=== PATIENT | male | born 1965 | race Caucasian/White ===

== ENCOUNTER → 2017-01-05 | Outpatient (CLI) | payer MEDICARE ==
[2016-06-06 11:02] VITALS: BP 133/89
[~2017-01-05] MED LIST: ALBU6.7H IH; DULO60CA6 PO; LORA-434 PO; LORA0.5T PO; LOSA100T6 PO; QUET200T4 PO; SULF1TAB24 PO; TRAZ150T49 PO
--- NOTE | 2017-01-05 10:38 | RAD ---
Clinical indications: Syncopal episodes for 3 weeks.. Technique: Noncontrast axial cross sectional scanning of the head was performed. PQRS Compliance Statement: One or more of the following individualized dose reduction techniques were utilized for this examination: 1. Automated exposure control 2. Adjustment of the mA and/or kV according to patient size 3. Use of iterative reconstruction technique Findings: No acute intracranial hemorrhage or midline shift or mass-effect or hydrocephalus or extra-axial fluid collection is seen. No focal hypodense area or sulci effacement is seen to indicate an acute infarct or edema radiographically. No skull fracture or pneumocephalus is seen. No opacification of the mastoid sinuses or the paranasal sinuses is seen. The maxillary sinuses are not seen in this study. Impression: No acute intracranial abnormality is seen.
== END | disposition home or self-care (01) ==
LOC: CT 09:30
PROVIDERS: ATTEND General Practice
DX: R55 Syncope and collapse (principal)
CPT/HCPCS: 70450

== ENCOUNTER → 2017-05-03 | Outpatient (CLI) | payer MEDICARE ==
[2016-06-06 11:02] VITALS: BP 133/89
--- NOTE | 2017-05-03 17:22 | RAD ---
INDICATION: LEFT KNEE PAIN X 2 WKS COMPARISON: 06/13/2013 IMPRESSION: Left knee: 3 views obtained without definite acute fracture or dislocation. There is a small amount of swelling seen in the prepatellar region. Could be from soft tissue swelling but bursitis also in differential.
== END | disposition home or self-care (01) ==
LOC: DXRADRC 12:01
PROVIDERS: ATTEND General Practice
DX: M25.562 Pain in left knee (principal); M25.462 Effusion, left knee
CPT/HCPCS: 73562

== ENCOUNTER → 2018-02-05 | Outpatient (CLI) | payer MEDICARE ==
[2016-06-06 11:02] VITALS: BP 133/89
[~2018-02-05] MED LIST changes: +LORA-254 PO; -LORA-434 PO
--- NOTE | 2018-02-05 10:02 | RAD ---
Cervical Spine complete Clinical History: 1 month of neck pain Technique: AP, lateral, bilateral oblique, swimmers projection,odontoid and open-mouth views and were obtained for a total of 7 views. Findings: There is straightening of the normal cervical lordosis. There is no loss of vertebral body stature. There is no prevertebral soft tissue swelling. The vertebral bodies are well aligned. There is symmetry of the open-mouth view. The dens appears normal. There is degenerative changes with loss of intervertebral disc height and marginal spurring of endplates at C4-C7. This also results in moderate narrowing of the neuroforamen on the left at C5-C6. Impression: Straightening of the normal cervical lordosis could be secondary to muscle spasm. There is degenerative changes of the C-spine. There are otherwise no acute findings. Clinical correlation suggested. End Impression Electronically signed by: Deejay Gonzalez III, MD (02/05/2018 9:59 AM) [facility]
== END | disposition home or self-care (01) ==
LOC: RAD 09:06
PROVIDERS: ATTEND Physician Assistant
DX: M48.02 Spinal stenosis, cervical region (principal); M47.892 Other spondylosis, cervical region; I10 Essential (primary) hypertension; F41.9 Anxiety disorder, unspecified; E03.9 Hypothyroidism, unspecified; Z85.46 Personal history of malignant neoplasm of prostate
CPT/HCPCS: 72050

== ENCOUNTER → 2018-04-26 | Outpatient (CLI) | payer MEDICARE ==
[2016-06-06 11:02] VITALS: BP 133/89
[~2018-04-26] MED LIST changes: -LOSA100T6 PO; +LOSA100T7 PO
== END | disposition home or self-care (01) ==
LOC: SURG 13:33
PROVIDERS: ATTEND Anesthesiology
DX: M47.812 Spondylosis without myelopathy or radiculopathy, cervical region (principal); F17.200 Nicotine dependence, unspecified, uncomplicated
CPT/HCPCS: 99204

== ENCOUNTER → 2019-03-28 | Outpatient (CLI) | payer MEDICARE ==
[2016-06-06 11:02] VITALS: BP 133/89
[~2019-03-28] MED LIST changes: +ALBU2.5V8 IH; -ALBU6.7H IH; +HYDR30CR61 TP; +LOSA100T14 PO; -LOSA100T7 PO
--- NOTE | 2019-03-28 12:51 | RAD ---
Carotid doppler ultrasound History: Hypertension, smoker, visual impairment Multiple grayscale, color, and duplex spectral analysis waveform sonographic images were acquired of the carotid, subclavian, and vertebral arteries. Comparison: None Findings: RIGHT: PSV cm/sec EDV cm/sec Common carotid artery 88 30 Maximal internal carotid artery 91 38 External carotid artery 108 Vertebral artery 34 ICA/CCA ratio 1.0 LEFT: PSV cm/sec EDV cm/sec Common carotid artery 90 27 Maximum internal carotid artery 99 45 External carotid artery 92 Vertebral artery 40 ICA/CCA ratio 1.1 Velocities used to determine stenosis are known to correlate with NASCET angiographic criteria. There is antegrade flow in the bilateral vertebral arteries. There is minimal plaque bilaterally, no significant stenosis demonstrated. Incidental note is made of right neck lymph node about 2.2 x 1 x 0.9 cm, not considered significantly enlarged based on short axis dimension. Impression: 1. There is no evidence of a hemodynamically significant stenosis, minimal plaque present. Electronically signed by: Conor Peng MD (03/28/2019 12:48 PM) [facility]
== END | disposition home or self-care (01) ==
LOC: US 07:34
PROVIDERS: ATTEND Physician Assistant
DX: I65.23 Occlusion and stenosis of bilateral carotid arteries (principal); I10 Essential (primary) hypertension; H53.9 Unspecified visual disturbance; F17.200 Nicotine dependence, unspecified, uncomplicated
CPT/HCPCS: 93880

== ENCOUNTER 2019-04-10 09:05 | Emergency (ER) | payer MEDICARE ==
[~2019-04-10] VITALS: Ht 165.1 cm; Wt 86.2 kg
[2019-04-10 09:10] VITALS: BP 125/86
--- NOTE | 2019-04-10 09:24 | PHYS DOC ---
Past History Past Medical History: Anxiety, Depression, High Cholesterol, Hypertension, Other Past Surgical History: Other Smoking: Cigarettes Alcohol Use: None Drug Use: None Adult General Chief Complaint Chief Complaint: SHOULDER INJURY HPI HPI Patient is a 53-year-old male presents with right shoulder and arm pain. This has been present for a while, worse this morning on waking up. Denies any difficulty breathing. Increased pain with abduction of the arm. No increased use. No specific position of comfort. No increased pain with flexion or extension of the elbow. No home treatment has been attempted. No recent trauma, stasis, or known hypercoagulable state. No swelling. No redness. Reports the pain is severe.[] Review of Systems Review of Systems Constitutional: Denies fever or chills [] Eyes: Denies change in visual acuity, redness, or eye pain [] HENT: Denies nasal congestion or sore throat [] Respiratory: Denies cough or shortness of breath [] Cardiovascular: No chest pain, palpitations, or worsening of the shoulder discomfort/arm discomfort with exertion.[] GI: Denies abdominal pain, nausea, vomiting, bloody stools or diarrhea [] : Denies dysuria or hematuria [] Musculoskeletal: Denies back pain, see history of present illness[] Integument: Denies rash or skin lesions [] Neurologic: Denies headache, focal weakness or sensory changes [] Endocrine: Denies polyuria or polydipsia [] All other systems were reviewed and found to be within normal limits, except as documented in this note. Allergies Allergies Allergies Coded Allergies Type Severity Reaction Last Updated Verified risperidone Allergy Severe 06/12/15 No Physical Exam Physical Exam Constitutional: Well developed, well nourished, no acute distress, non-toxic appearance. [] HENT: Normocephalic, atraumatic, bilateral external ears normal, oropharynx moist, no oral exudates, nose normal. [] Eyes: PERRLA, EOMI, conjunctiva normal, no discharge. [] Neck: Normal range of motion, no tenderness, supple, no stridor. [] Cardiovascular:Heart rate regular rhythm, no murmur [] Lungs & Thorax: Bilateral breath sounds clear to auscultation [] Abdomen: Bowel sounds normal, soft, no tenderness, no masses, no pulsatile masses. [] Skin: Warm, dry, no erythema, no rash. [] Back: No tenderness, no CVA tenderness. [] Extremities: Right shoulder and arm: Diffuse tenderness, mostly in the bicep and the anterior and middle portion of the deltoids. Full active range of motion of the shoulder and elbow. Patient is distally neurovascularly intact. No increased pain with axial loading. Strength is 5 out of 5. No clavicular tenderness. No specific AC joint tenderness. A joint below was evaluated and was normal. The other 3 extremities show: No tenderness, no cyanosis, no clubbing, ROM intact, no edema. [] Neurologic: Alert and oriented X 3, normal motor function, normal sensory function, no focal deficits noted. [] Psychologic: Affect normal, judgement normal, mood normal. [] EKG EKG [] Radiology/Procedures Radiology/Procedures PROCEDURE: HUMERUS RIGHT Examination: HUMERUS RIGHT, SHOULDER 2+V RIGHT History: Pain Comparison/Correlation: None Findings: Total of 3 images of the right shoulder were obtained. 2 images of the right humerus were obtained. Acromioclavicular joint has mild age consistent degenerative change. Glenohumeral joint is unremarkable. Bony mineralization is adequate. No acute fracture or bone destruction. Soft tissues are unremarkable. Visualized right lung field is unremarkable. Impression: No suspicious process.[] Course & Med Decision Making Course & Med Decision Making Pertinent Labs and Imaging studies reviewed. (See chart for details) ED course: Patient arrived, was placed in bed, and tolerated exam well. Was transported to and from radiology with any complications. He was given a parenteral dose of NSAIDs with improvement in his discomfort. Findings and plan were discussed with the patient who voiced understanding. He was discharged in improved condition with all questions answered. Medical decision making: There is no fracture, dislocation, bony lesion, nor evidence of thrombus. This does not appear to be an acute coronary syndrome.[] Dragon Disclaimer Dragon Disclaimer This electronic medical record was generated, in whole or in part, using a voice recognition dictation system. Departure Departure: Impression: Primary Impression: Upper extremity pain Disposition: 01 HOME, SELF-CARE Condition: IMPROVED Referrals: ESTEPHANIA ESPARZA (PCP) Follow-up in 2 days Patient Instructions: Chronic Pain Additional Instructions: All up with your regular doctor in 2 days. Take the medication as prescribed. Return to the ER if worsening pain, difficulty breathing, or any other concerns. Scripts Meloxicam (MELOXICAM) 7.5 Mg Tablet 7.5 MG PO DAILY for PAIN, #20 TAB Prov: JOSE M MARAVILLA DO 04/10/19 Problem Qualifiers Primary Impression: Upper extremity pain Laterality: right Qualified Codes: M79.601 - Pain in right arm JOSE M MARAVILLA DO Apr 10, 2019 09:24
[2019-04-10] MEDS ORDERED: KETOROLAC 30 MG/ML VIAL. IM ONE (09:45)
--- NOTE | 2019-04-10 09:52 | RAD ---
Examination: HUMERUS RIGHT, SHOULDER 2+V RIGHT History: Pain Comparison/Correlation: None Findings: Total of 3 images of the right shoulder were obtained. 2 images of the right humerus were obtained. Acromioclavicular joint has mild age consistent degenerative change. Glenohumeral joint is unremarkable. Bony mineralization is adequate. No acute fracture or bone destruction. Soft tissues are unremarkable. Visualized right lung field is unremarkable. Impression: No suspicious process. Electronically signed by: Terry Torres MD (04/10/2019 9:49 AM) [facility]
--- NOTE | 2019-04-10 09:52 | RAD ---
Examination: HUMERUS RIGHT, SHOULDER 2+V RIGHT History: Pain Comparison/Correlation: None Findings: Total of 3 images of the right shoulder were obtained. 2 images of the right humerus were obtained. Acromioclavicular joint has mild age consistent degenerative change. Glenohumeral joint is unremarkable. Bony mineralization is adequate. No acute fracture or bone destruction. Soft tissues are unremarkable. Visualized right lung field is unremarkable. Impression: No suspicious process. Electronically signed by: Terry Torres MD (04/10/2019 9:49 AM) [facility]
[2019-04-10] MEDS ORDERED: MELO7.5T29 PO (10:06)
== END 2019-04-10 10:11 | disposition home or self-care (01) ==
LOC: ER 09:05
DX: M79.601 Pain in right arm (principal); M25.511 Pain in right shoulder; E78.00 Pure hypercholesterolemia, unspecified; I10 Essential (primary) hypertension; F17.210 Nicotine dependence, cigarettes, uncomplicated; Z88.8 Allergy status to other drugs, medicaments and biological substances
CPT/HCPCS: 73030; 73060; 96372; 99284; J1885

== ENCOUNTER 2019-06-15 06:05 | Emergency (ER) | payer MEDICARE ==
[~2019-06-15] VITALS: Ht 165.1 cm; Wt 87.5 kg
[~2019-06-15 06:05] MED LIST changes: +MELO7.5T29 PO
--- NOTE | 2019-06-15 06:27 | PHYS DOC ---
Past History Past Medical History: Anxiety, Depression, High Cholesterol, Hypertension, Other Past Surgical History: Other Additional Past Surgical Histo: knee surgeries Smoking: Cigarettes Alcohol Use: None Drug Use: None Adult General Chief Complaint Chief Complaint: ABDOMINAL PAIN HPI HPI Patient is a 53-year-old male who presents to the emergency department for evaluation. He states that for the past 2 days, he has had some generalized central abdominal pain, and some intermittent nausea, but no vomiting. He reports he has been eating and moving his bowels normally, as well as having no trouble or difficulty with urination. He denies any genital pain, or black or bloody stools. He has not had any chest pain shortness of breath, dizziness or lightheadedness. He describes the pain in the center of his abdomen as an achy pain. Alleviating or exacerbating factors to his symptoms, he declines a need for analgesic medication at this time. Review of Systems Review of Systems Constitutional: Denies fever or chills [] Eyes: Denies change in visual acuity, redness, or eye pain [] HENT: Denies nasal congestion or sore throat [] Respiratory: Denies cough or shortness of breath [] Cardiovascular:The patient denies any shortness of breath, chest pain, palpitations, or orthopnea[] GI: No additional information not addressed in HPI [] : Denies dysuria or hematuria [] Musculoskeletal: Denies back pain or joint pain [] Integument: Denies rash or skin lesions [] Neurologic: Denies headache, focal weakness or sensory changes [] Endocrine: Denies polyuria or polydipsia [] All other systems were reviewed and found to be within normal limits, except as documented in this note. Allergies Allergies Allergies Coded Allergies Type Severity Reaction Last Updated Verified risperidone Allergy Severe 06/12/15 No Physical Exam Physical Exam PHYSICAL EXAM: CONSTITUTIONAL: Well developed, well nourished HEAD: normocephalic, atraumatic EENT: PERRL, EOMI. Conjunctivae normal color, sclerae non-icteric; moist mucous membranes. NECK: Supple, non-tender; no meningismus. LUNGS: Lungs CTA, breathing even and unlabored. Normal air movement. HEART: Regular rate and rhythm, no murmur CHEST: No deformity; non-tender ABDOMEN: There is mild diffuse abdominal discomfort and tenderness of the central abdomen diffusely, without focal tenderness, rebound, or guarding, bowel sounds are present, the right upper quadrant is relatively nontender, Flores sign is absent, no masses or bruits. EXTREM: Normal ROM; no deformity, no calf tenderness. Normal pulses palpable in all extremities. There is no pedal edema. SKIN: No rash; no diaphoresis NEURO: Alert; normal speech and cognition; CN's grossly intact; strength grossly intact without focal deficit. BACK: No CVA TTP. Current Patient Data Lab Results Laboratory Tests Test 06/15/19 06:20 06/15/19 07:02 White Blood Count 4.8 x10^3/uL Red Blood Count 4.72 x10^6/uL Hemoglobin 14.3 g/dL Hematocrit 42.3 % Mean Corpuscular Volume 90 fL Mean Corpuscular Hemoglobin 30 pg Mean Corpuscular Hemoglobin Concent 34 g/dL Red Cell Distribution Width 13.2 % Platelet Count 199 x10^3/uL Neutrophils (%) (Auto) 62 % Lymphocytes (%) (Auto) 25 % Monocytes (%) (Auto) 11 % Eosinophils (%) (Auto) 1 % Basophils (%) (Auto) 2 % Neutrophils # (Auto) 3.0 x10^3uL Lymphocytes # (Auto) 1.2 x10^3/uL Monocytes # (Auto) 0.5 x10^3/uL Eosinophils # (Auto) 0.1 x10^3/uL Basophils # (Auto) 0.1 x10^3/uL Sodium Level 141 mmol/L Potassium Level 4.3 mmol/L Chloride Level 101 mmol/L Carbon Dioxide Level 28 mmol/L Anion Gap 12 Blood Urea Nitrogen 16 mg/dL Creatinine 1.3 mg/dL Estimated GFR (Cockcroft-Gault) 57.7 BUN/Creatinine Ratio 12 Glucose Level 95 mg/dL Calcium Level 9.0 mg/dL Total Bilirubin 0.6 mg/dL Aspartate Amino Transf (AST/SGOT) 38 U/L Alanine Aminotransferase (ALT/SGPT) 42 U/L Alkaline Phosphatase 114 U/L Troponin I Quantitative < 0.017 ng/mL Total Protein 7.3 g/dL Albumin 4.3 g/dL Albumin/Globulin Ratio 1.4 Lipase 233 U/L Urine Collection Type Unknown Urine Color Yellow Urine Clarity Clear Urine pH 6.5 Urine Specific [place] 1.010 Urine Protein Neg Urine Glucose (UA) Neg mg/dL Urine Ketones (Stick) Neg mg/dL Urine Blood Trace Urine Nitrite Neg Urine Bilirubin Neg Urine Urobilinogen Dipstick 0.2 mg/dL Urine Leukocyte Esterase Neg Urine RBC 3-5 /HPF Urine WBC Rare /HPF Urine Squamous Epithelial Cells Occ /LPF Urine Bacteria 0 /HPF Current Medications Medications (Trade) Dose Ordered Sig/Antonio Route PRN Reason Start Time Stop Time Status Last Admin Dose Admin Sodium Chloride 1,000 ml @ 1,000 mls/hr Q1H IV 06/15/19 06:30 06/15/19 07:29 DC 06/15/19 07:17 Ondansetron HCl (Zofran) 4 mg 1X ONCE IVP 06/15/19 06:30 06/15/19 06:41 DC 06/15/19 07:17 Iohexol (Omnipaque 300 Mg/ml) 75 ml 1X ONCE IV 06/15/19 06:45 06/15/19 06:46 DC 06/15/19 06:47 Info (Do NOT chart on this entry -- for MONITORING) 1 each PRN DAILY PRN MC SEE COMMENTS 06/15/19 06:45 06/17/19 06:44 EKG EKG Normal sinus rhythm with a normal rate, normal axis, normal intervals, there are no acute ischemic ST/T changes.[] Radiology/Procedures Radiology/Procedures PROCEDURE: CT ABD PELV W/ IV CONTRST ONLY Examination: CT of the abdomen pelvis with IV contrast HISTORY: History of abdominal pain COMPARISON: 06/12/2015 TECHNIQUE: Axial CT images of the abdomen pelvis were performed with IV contrast. Coronal and sagittal reformats were performed. Exposure: One or more of the following individualized dose reduction techniques were utilized for this examination: 1. Automated exposure control 2. Adjustment of the mA and/or kV according to patient size 3. Use of iterative reconstruction technique FINDINGS: The liver, spleen, adrenals grossly appears unremarkable. The gallbladder is mildly distended. The stomach is is minimally distended. The visualized pancreas grossly appears unremarkable. The small bowel is nondilated. Mild fluid distended small bowel loops identified. The bilateral kidneys enhance symmetrically. Multiple cystic sequences identified in the bilateral kidneys with the largest measuring 4.4 cm the left kidney likely cysts. The gallbladder is mildly distended. Mild hyperdensity identified within the urinary bladder probably contrast. No evidence of lytic bony destructive lesion. IMPRESSION: 1. Mild fluid distended small bowel loops, nonspecific. No acute intra-abdominal findings. 2. Bilateral renal cysts. [] Course & Med Decision Making Course & Med Decision Making Pertinent Labs and Imaging studies reviewed. (See chart for details) []7:30 AM:Patient remains stable. I discussed test results, the need for close follow-up, and return precautions. Dragon Disclaimer Dragon Disclaimer This electronic medical record was generated, in whole or in part, using a voice recognition dictation system. Departure Departure: Impression: Primary Impression: Abdominal pain Disposition: HOME, SELF-CARE Condition: STABLE Referrals: ESTEPHANIA ESPARZA (PCP) Patient Instructions: Abdominal Pain, Viral Gastroenteritis Additional Instructions: There was a trace amount of blood in your urine today, follow-up with your primary care provider for further outpatient evaluation, and urology consult ation might warranted to rule out a more serious or malignant process. Please contact your primary care provider to schedule a follow-up appointment. Scripts Ondansetron (ONDANSETRON ODT) 4 Mg Tab.rapdis 1 TAB PO PRN Q6-8HRS for N/V, #15 TAB Prov: PETERSON BAIN MD 06/15/19 Dicyclomine Hcl (DICYCLOMINE HCL) 10 Mg Capsule 1 CAP PO PRN Q6HRS PRN for Abdominal Pain, #20 CAP 0 Refills Prov: PETERSON BAIN MD 06/15/19 PETERSON BAIN MD Jun 15, 2019 06:27
[2019-06-15] MEDS ORDERED: ONDANSETRON PF 4 MG/2 ML VIAL. IVP ONE (06:30)
[2019-06-15] MEDS ORDERED: IV NORMAL SALINE 1,000ML 1,000 ML IV SCH (06:30)
--- NOTE | 2019-06-15 06:35 | EKG ---
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
[2019-06-15 06:44] LABS: BASO # 0.1 x10^3/uL (0.0-0.2); BASO % 2 % (0-3); EOS # 0.1 x10^3/uL (0.0-0.7); EOS % 1 % (0-3); HEMATOCRIT 42.3 % (39.0-53.0); HEMOGLOBIN 14.3 g/dL (13.0-17.5); LYMPH # 1.2 x10^3/uL (1.0-4.8); LYMPH % 25 % (24-48); MEAN CORPUSCULAR HEMOGLOBIN 30 pg (25-35); MEAN CORPUSCULAR HGB CONC 34 g/dL (31-37); MEAN CORPUSCULAR VOLUME 90 fL (79-100); MONO # 0.5 x10^3/uL (0.0-1.1); MONO % 11 % (0-9); NEUT % 62 % (31-73); PLATELET COUNT 199 x10^3/uL (140-400); RED BLOOD COUNT 4.72 x10^6/uL (4.30-5.70); RED CELL DISTRIBUTION WIDTH 13.2 % (11.5-14.5); WHITE BLOOD COUNT 4.8 x10^3/uL (4.0-11.0)
[2019-06-15] MEDS ORDERED: CONTRAST GIVEN MC PRN (06:45)
[2019-06-15] MEDS ORDERED: IOHEXOL 300 MG/ML 75 ML VIAL. IV ONE (06:45)
[2019-06-15 06:55] LABS: ALBUMIN 4.3 g/dL (3.4-5.0); ALBUMIN/GLOBULIN RATIO 1.4 (1.0-1.7); CREATININE 1.3 mg/dL (0.7-1.3); GFR 57.7; POTASSIUM 4.3 mmol/L (3.5-5.1); TOTAL BILIRUBIN 0.6 mg/dL (0.2-1.0); TOTAL PROTEIN 7.3 g/dL (6.4-8.2)
--- NOTE | 2019-06-15 07:16 | RAD ---
Examination: CT of the abdomen pelvis with IV contrast HISTORY: History of abdominal pain COMPARISON: 06/12/2015 TECHNIQUE: Axial CT images of the abdomen pelvis were performed with IV contrast. Coronal and sagittal reformats were performed. Exposure: One or more of the following individualized dose reduction techniques were utilized for this examination: 1. Automated exposure control 2. Adjustment of the mA and/or kV according to patient size 3. Use of iterative reconstruction technique FINDINGS: The liver, spleen, adrenals grossly appears unremarkable. The gallbladder is mildly distended. The stomach is is minimally distended. The visualized pancreas grossly appears unremarkable. The small bowel is nondilated. Mild fluid distended small bowel loops identified. The bilateral kidneys enhance symmetrically. Multiple cystic sequences identified in the bilateral kidneys with the largest measuring 4.4 cm the left kidney likely cysts. The gallbladder is mildly distended. Mild hyperdensity identified within the urinary bladder probably contrast. No evidence of lytic bony destructive lesion. IMPRESSION: 1. Mild fluid distended small bowel loops, nonspecific. No acute intra-abdominal findings. 2. Bilateral renal cysts. Electronically signed by: Matthew Garza MD (06/15/2019 7:13 AM) [facility]
[2019-06-15] MEDS ORDERED: DICY10CA3 PO (07:41)
[2019-06-15] MEDS ORDERED: ONDA4TAB12 PO (07:41)
[2019-06-15 07:42] LABS: CLARITY,URINE CLEAR; COLOR,URINE YELLOW; GLUCOSE,URINE NEG (NEG)
[2019-06-15 07:43] LABS: BACTERIA,URINE 0 /HPF (0-FEW); BILIRUBIN,URINE NEG (NEG); NITRITE,URINE NEG (NEG); SQUAMOUS EPITHELIAL CELL,UR OCC /LPF; UROBILINOGEN,URINE 0.2 mg/dL (0.2 mg/dL); WBC,URINE RARE /HPF (0-4)
[2019-06-15 08:00] VITALS: BP 110/71
== END 2019-06-15 08:02 | disposition home or self-care (01) ==
LOC: ER 06:05
DX: R10.84 Generalized abdominal pain (principal); R11.0 Nausea; E78.00 Pure hypercholesterolemia, unspecified; I10 Essential (primary) hypertension; F17.210 Nicotine dependence, cigarettes, uncomplicated; N28.1 Cyst of kidney, acquired; Z88.8 Allergy status to other drugs, medicaments and biological substances
CPT/HCPCS: 36415; 74177; 80053; 81001; 83690; 84484; 85025; 93005; 96374; 99285; J2405; Q9967; J7030

== ENCOUNTER 2019-09-07 06:50 | Observation (INO) | payer MEDICARE ==
[~2019-09-07] VITALS: Ht 165.1 cm; Wt 84.0 kg
[~2019-09-07 06:50] MED LIST changes: +DICY10CA3 PO; +ONDA4TAB12 PO
[2019-09-07] MEDS ORDERED: ASPIRIN 81 MG TAB.CHEW ONE (06:58)
--- NOTE | 2019-09-07 07:13 | PHYS DOC ---
Past History Past Medical History: Anxiety, Bipolar, Depression, High Cholesterol, Hypertension Past Surgical History: Knee Replacement Additional Past Surgical Histo: knee surgeries Smoking: Cigarettes Alcohol Use: None Drug Use: None Adult General HPI HPI Patient is a 54 y/o WM who presents to the ED for evaluation of chest pain, which began this morning. Pain is described as sharp, non-radiating, and constant, since onset just prior to arrival. The patient denies any significant shortness of breath or pleuritic pain. Movement, and position changes seem to worsen his pain. There are no alleviating factors to his symptoms. He has not had any nausea, vomiting, or diaphoresis. Patient's cardiac risk factors include smoking, hypertension, and hyperlipidemia. Assuming a negative troponin, his HEART score is a 3. Review of Systems Review of Systems Constitutional: Denies fever or chills [] Eyes: Denies change in visual acuity, redness, or eye pain [] HENT: Denies nasal congestion or sore throat [] Respiratory: Denies cough or shortness of breath [] Cardiovascular: No additional information not addressed in HPI [] GI: Denies abdominal pain, nausea, vomiting, bloody stools or diarrhea [] : Denies dysuria or hematuria [] Musculoskeletal: Denies back pain or joint pain [] Integument: Denies rash or skin lesions [] Neurologic: Denies headache, focal weakness or sensory changes [] Endocrine: Denies polyuria or polydipsia [] All other systems were reviewed and found to be within normal limits, except as documented in this note. Current Medications Current Medications Current Medications Medications (Trade) Dose Ordered Sig/[facility] Start Time Stop Time Status Last Admin Dose Admin Aspirin (Children'S Aspirin) 324 mg 1X ONCE 09/07/19 07:15 09/07/19 07:16 UNV Allergies Allergies Allergies Coded Allergies Type Severity Reaction Last Updated Verified risperidone Allergy Severe 06/12/15 No Physical Exam Physical Exam PHYSICAL EXAM: CONSTITUTIONAL: Well developed, well nourished HEAD: normocephalic, atraumatic EENT: PERRL, EOMI. Conjunctivae normal color, sclerae non-icteric; moist mucous membranes. NECK: Supple, non-tender; no meningismus. LUNGS: Lungs CTA, breathing even and unlabored. Normal air movement. HEART: Regular rate and rhythm, no murmur CHEST: No deformity; there is mild tenderness to palpation to the left anterior chest wall, which somewhat reproduces the patient's pain ABDOMEN: The abdomen is soft, and non-tender, no masses or bruits. EXTREM: Normal ROM; no deformity, no calf tenderness. Normal pulses palpable in all extremities. There is no pedal edema. SKIN: No rash; no diaphoresis NEURO: Alert; normal speech and cognition; CN's grossly intact; strength grossly intact without focal deficit. BACK: No CVA TTP. PSYCHIATRIC: Mildly flat affect Current Patient Data Lab Results Laboratory Tests Test 09/07/19 07:00 09/07/19 07:35 Sodium Level 139 mmol/L Potassium Level 4.3 mmol/L Chloride Level 102 mmol/L Carbon Dioxide Level 27 mmol/L Anion Gap 10 Blood Urea Nitrogen 11 mg/dL Creatinine 1.1 mg/dL Estimated GFR (Cockcroft-Gault) 69.8 BUN/Creatinine Ratio 10 Glucose Level 93 mg/dL Calcium Level 8.9 mg/dL Total Bilirubin 0.5 mg/dL Aspartate Amino Transf (AST/SGOT) 21 U/L Alanine Aminotransferase (ALT/SGPT) 26 U/L Alkaline Phosphatase 97 U/L Troponin I Quantitative < 0.017 ng/mL [id number] Natriuretic Peptide 77 pg/mL Total Protein 7.2 g/dL Albumin 4.1 g/dL Albumin/Globulin Ratio 1.3 White Blood Count 4.5 x10^3/uL Red Blood Count 4.51 x10^6/uL Hemoglobin 13.2 g/dL Hematocrit 39.6 % Mean Corpuscular Volume 88 fL Mean Corpuscular Hemoglobin 29 pg Mean Corpuscular Hemoglobin Concent 33 g/dL Red Cell Distribution Width 13.0 % Platelet Count 190 x10^3/uL Neutrophils (%) (Auto) 66 % Lymphocytes (%) (Auto) 23 % Monocytes (%) (Auto) 9 % Eosinophils (%) (Auto) 1 % Basophils (%) (Auto) 1 % Neutrophils # (Auto) 3.0 x10^3uL Lymphocytes # (Auto) 1.0 x10^3/uL Monocytes # (Auto) 0.4 x10^3/uL Eosinophils # (Auto) 0.0 x10^3/uL Basophils # (Auto) 0.0 x10^3/uL Current Medications Medications (Trade) Dose Ordered Sig/Antonio Route PRN Reason Start Time Stop Time Status Last Admin Dose Admin Aspirin (Children'S Aspirin) 81 mg STK-MED ONCE .ROUTE 09/07/19 06:58 09/07/19 06:58 DC Aspirin (Children'S Aspirin) 324 mg 1X ONCE PO 09/07/19 07:15 09/07/19 07:16 DC 09/07/19 07:12 Morphine Sulfate (Morphine 4mg Syringe) 4 mg 1X ONCE IV 09/07/19 07:45 09/07/19 07:46 DC 09/07/19 07:41 Nitroglycerin (Nitrostat) 0.4 mg PRN Q5MIN PRN SL CHEST PAIN 09/07/19 07:45 09/07/19 07:39 EKG EKG Normal sinus rhythm with a normal rate, normal axis, normal intervals, there are no acute ischemic ST/T changes. EKG is not significantly changed compared to patient's prior EKG. Radiology/Procedures Radiology/Procedures []PROCEDURE: PORTABLE CHEST 1V Examination: PORTABLE CHEST 1V History: Chest pain Comparison/Correlation: 05/25/2015 portable chest x-ray exam Findings: Portable upright frontal view of the chest was obtained. Heart size and pulmonary vasculature are normal. No pneumothorax. No focal infiltrates. Left costophrenic angle was not optimally included. No significant pleural effusion. Bony structures are unremarkable. Impression: No suspicious process. Course & Med Decision Making Course & Med Decision Making Pertinent Labs and Imaging studies reviewed. (See chart for details) []8:00 AM: The patient's condition remains stable. I spoke with the hospitalist, who accepted the patient to the hospital for further evaluation and treatment. Dragon Disclaimer Dragon Disclaimer This electronic medical record was generated, in whole or in part, using a voice recognition dictation system. Departure Departure: Impression: Primary Impression: Chest pain Disposition: ADMITTED INPATIENT Admitting Physician: Opal Ivy Condition: STABLE Referrals: ESTEPHANIA ESPRAZA (PCP) PETERSON BAIN MD Sep 07, 2019 07:13
[2019-09-07] MEDS ORDERED: ASPIRIN 81 MG TAB.CHEW PO ONE (07:15)
[2019-09-07 07:31] LABS: CALCIUM 8.9 mg/dL (8.5-10.1); CREATININE 1.1 mg/dL (0.7-1.3); GFR 69.8; POTASSIUM 4.3 mmol/L (3.5-5.1)
--- NOTE | 2019-09-07 07:35 | RAD ---
Examination: PORTABLE CHEST 1V History: Chest pain Comparison/Correlation: 05/25/2015 portable chest x-ray exam Findings: Portable upright frontal view of the chest was obtained. Heart size and pulmonary vasculature are normal. No pneumothorax. No focal infiltrates. Left costophrenic angle was not optimally included. No significant pleural effusion. Bony structures are unremarkable. Impression: No suspicious process. Electronically signed by: Terry Torres MD (09/07/2019 7:32 AM) [id number]
[2019-09-07] MEDS: NITROGLYCERIN SUBLINGUAL 0.4 MG BOTTLE OF 25. SL PRN ×2 (07:39→10:49)
[2019-09-07 07:43] LABS: ALBUMIN 4.1 g/dL (3.4-5.0); ALBUMIN/GLOBULIN RATIO 1.3 (1.0-1.7); TOTAL BILIRUBIN 0.5 mg/dL (0.2-1.0); TOTAL PROTEIN 7.2 g/dL (6.4-8.2)
[2019-09-07 07:45] LABS: BASO % 1 % (0-3); EOS % 1 % (0-3); HEMATOCRIT 39.6 % (39.0-53.0); HEMOGLOBIN 13.2 g/dL (13.0-17.5); LYMPH % 23 % (24-48); MEAN CORPUSCULAR HEMOGLOBIN 29 pg (25-35); MEAN CORPUSCULAR HGB CONC 33 g/dL (31-37); MEAN CORPUSCULAR VOLUME 88 fL (79-100); MONO # 0.4 x10^3/uL (0.0-1.1); MONO % 9 % (0-9); NEUT % 66 % (31-73); PLATELET COUNT 190 x10^3/uL (140-400); RED BLOOD COUNT 4.51 x10^6/uL (4.30-5.70); WHITE BLOOD COUNT 4.5 x10^3/uL (4.0-11.0)
[2019-09-07] MEDS ORDERED: MORPHINE SULFATE 4 MG/ML DISP.SYRIN. IV ONE (07:45)
--- NOTE | 2019-09-07 10:41 | NUR ---
Patient c/o of chest pain level of 9 on a scale of 1-10. Dr. Ivy notified, new orders for EKG, STAT TROPONINS, IV MORPHINE 4MG IVP Q 4HR PRN, received.
[2019-09-07] MEDS: MORPHINE SULFATE 4 MG/ML DISP.SYRIN. IV PRN (10:50)
[2019-09-07 10:51] VITALS: BP 134/72
--- NOTE | 2019-09-07 11:16 | NUR ---
The patient, ALESIA DOBBS, 54 y/o, M admitted by ERICA ANDREWS MD, was given written information regarding hospital policies, unit procedures and contact persons. Valuables were checked and left with patient at bedside. Patient admitted from ED with a diagnosis of chest pain. Dr. Andrews notified via telephone of patient's arrival on unit. New orders received. Cardiology consulted per request. Patient is now resting in room with call light and fresh fluids with in reach.
[2019-09-07 11:24] VITALS: BP 113/71
[2019-09-07 12:13] VITALS: BP 118/74
--- NOTE | 2019-09-07 12:22 | EKG ---
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
--- NOTE | 2019-09-07 12:23 | EKG ---
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
[2019-09-07] MEDS ORDERED: ATOR10TA PO (12:45)
[2019-09-07] MEDS ORDERED: HYDR25TA PO (12:45)
[2019-09-07] MEDS ORDERED: SERT100T PO (12:45)
[2019-09-07] MEDS ORDERED: OLME20TA17 PO (12:45)
[2019-09-07] MEDS ORDERED: LAMO100T5 PO (12:45)
[2019-09-07 14:50] VITALS: BP 102/69
[2019-09-07] MEDS ORDERED: hydrOXYzine HCL 25 MG TABLET PO PRN (17:45)
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
[2019-09-07 19:10] VITALS: BP 109/74
[2019-09-07] MEDS ORDERED: ACETAMINOPHEN 325 MG TABLET PO PRN (20:45)
[2019-09-07] MEDS ORDERED: ACETAMINOPHEN 325 MG TABLET PO ONE (20:56)
[2019-09-07] MEDS ORDERED: lamoTRIgine 100 MG TABLET. PO SCH (21:00)
[2019-09-07] MEDS ORDERED: ATORVASTATIN CALCIUM 10 MG TABLET. PO SCH (21:00)
[2019-09-07 23:01] VITALS: BP 112/75
[2019-09-08 05:17] VITALS: BP 103/73
[2019-09-08] MEDS: MORPHINE SULFATE 4 MG/ML DISP.SYRIN. IV PRN (08:30)
[2019-09-08] MEDS ORDERED: SERTRALINE 100 MG TABLET. PO SCH (09:00)
[2019-09-08 10:32] VITALS: BP 114/68
--- NOTE | 2019-09-08 11:45 | NUR ---
Having chest pain at 0900. Gave PRN morphine as prescribed. Pt stated "It's worse after I eat." quality assurance monitor body showed Heart Rate 72 bpm, normal sinus rhythm. BP-121/80. Reassessed pain 30 min after giving medication. Pt states the pain is better but still there. Will continue to monitor and assess as necessary.
[2019-09-08 14:52] VITALS: BP 126/79
--- NOTE | 2019-09-08 15:29 | PDOC2 ---
CONSULT Date of Admission DATE: 09/08/19 TIME: 15:24 Reason for Consult: chest pain Referring Physician: Dr. Ivy Chief Complaint Chest pain Source: Chart review, Patient Problem List Problems Medical Problems: (1) Chest pain Status: Acute History of Present Illness 54-year-old male without any previous cardiac history presented complaining of left-sided chest pain that he described as sharp in nature not related to exertion or food intake and slightly worsened with movement of his upper body. He denied any orthopnea/PND, palpitations or syncope. Cardiovascular: HTN, hyperipidemia Psych: Bipolar Musculoskeletal: Osteoarthritis Renal/: Benign prostatic enlarg. Past Surgical History Arthroscopic surgery to left knee Colonoscopy Anal fissure surgery Hemorrhoidectomy Family History Hypertension Social History Patient smokes one half pack cigarettes daily and denied any alcohol or drug use Current Medications Current Medications Aspirin (Children'S Aspirin) 81 mg STK-MED ONCE .ROUTE ; Start 09/07/19 at 06:58; Stop 09/07/19 at 06:58; Status DC Aspirin (Children'S Aspirin) 324 mg 1X ONCE PO Last administered on 09/07/19at 07:12; Start 09/07/19 at 07:15; Stop 09/07/19 at 07:16; Status DC Morphine Sulfate (Morphine 4mg Syringe) 4 mg 1X ONCE IV Last administered on 09/07/19at 07:41; Start 09/07/19 at 07:45; Stop 09/07/19 at 07:46; Status DC Nitroglycerin (Nitrostat) 0.4 mg PRN Q5MIN PRN SL CHEST PAIN Last administered on 09/07/19at 10:49; Start 09/07/19 at 07:45 Morphine Sulfate (Morphine 4mg Syringe) 4 mg PRN Q4HRS PRN IV PAIN Last administered on 09/08/19at 08:30; Start 09/07/19 at 10:45 Atorvastatin Calcium (Lipitor) 10 mg QHS PO Last administered on 09/07/19at 20:57; Start 09/07/19 at 21:00 Hydroxyzine HCl (Atarax) 25 mg PRN TID PRN PO ITCHING; Start 09/07/19 at 17:45 Lamotrigine (LaMICtal) 100 mg HS PO Last administered on 09/07/19at 20:57; St art 09/07/19 at 21:00 Sertraline HCl (Zoloft) 200 mg DAILY PO Last administered on 09/08/19at 08:29; Start 09/08/19 at 09:00 Acetaminophen (Tylenol) 650 mg PRN Q6HRS PRN PO PAIN / TEMP Last administered on 09/07/19at 20:58; Start 09/07/19 at 20:45 Acetaminophen (Tylenol) 325 mg STK-MED ONCE PO ; Start 09/07/19 at 20:56; Stop 09/07/19 at 20:57; Status DC Active Scripts Active Ondansetron Odt (Ondansetron) 4 Mg Tab.rapdis 1 Tab PO PRN Q6-8HRS Dicyclomine Hcl 10 Mg Capsule 1 Cap PO PRN Q6HRS PRN Meloxicam 7.5 Mg Tablet 7.5 Mg PO DAILY Anusol-Hc (Hydrocortisone) 30 Gm Cream..g. 1 Roselia TP BID Proventil Hfa Inhaler (Albuterol Sulfate) 6.7 Gm Hfa.aer.ad 2 Puff IH Q4HRS Bactrim Ds Tablet (Sulfamethoxazole/Trimethoprim) 1 Each Tablet 1 Each PO BID Ativan (Lorazepam) 1 Mg Tablet 1 Mg PO TID Reported Lamictal (Lamotrigine) 100 Mg Tablet 1 Tab PO HS Hydroxyzine Hcl 25 Mg Tablet 1 Tab PO PRN TID PRN Zoloft (Sertraline Hcl) 100 Mg Tablet 2 Tab PO DAILY Benicar (Olmesartan Medoxomil) 20 Mg Tablet 1 Tab PO DAILY 30 Days Lipitor (Atorvastatin Calcium) 10 Mg Tablet 1 Tab PO QHS Trazodone Hcl 150 Mg Tablet 1 Tab PO QHS Lorazepam 0.5 Mg Tablet 1 Tab PO TID Cymbalta (Duloxetine Hcl) 60 Mg Capsule.dr 60 Mg PO Losartan Potassium 100 Mg Tablet 100 Mg PO DAILY Cymbalta (Duloxetine Hcl) 60 Mg Capsule.dr 60 Mg PO BID Seroquel (Quetiapine Fumarate) 200 Mg Tablet 1 Tab PO BID Allergies: Coded Allergies: risperidone (Unverified Allergy, Severe, 06/12/15) PSYCHOLOGICAL ROS: No: Hallucinations Eyes: No: Loss of vision HEENT: No: Epistaxis Respiratory: No: Hemoptysis, Shortness of breath Cardiovascular: yes: Chest Pain Gastrointestinal: No: Vomiting, Diarrhea Genitourinary: No: Henaturia Neurological: No: Seizures Skin: No: Rash General: Alert, No acute distress HEENT: Atraumatic Lungs: Clear to auscultation Heart: Regular rate Abdomen: Soft Extremities: No edema Psych/Mental Status: Mood NL VITALS Vital Signs Date Time Temp Pulse Resp B/P (MAP) Pulse Ox O2 Delivery O2 Flow Rate FiO2 09/08/19 14:52 97.5 66 20 126/79 (95) 94 Room Air Labs Laboratory Tests Test 09/07/19 07:00 09/07/19 07:35 09/07/19 10:46 09/07/19 14:20 Sodium Level 139 mmol/L (136-145) Potassium Level 4.3 mmol/L (3.5-5.1) Chloride Level 102 mmol/L (98-107) Carbon Dioxide Level 27 mmol/L (21-32) Anion Gap 10 (6-14) Blood Urea Nitrogen 11 mg/dL (8-26) Creatinine 1.1 mg/dL (0.7-1.3) Estimated GFR (Cockcroft-Gault) 69.8 BUN/Creatinine Ratio 10 (6-20) Glucose Level 93 mg/dL (70-99) Calcium Level 8.9 mg/dL (8.5-10.1) Total Bilirubin 0.5 mg/dL (0.2-1.0) Aspartate Amino Transf (AST/SGOT) 21 U/L (15-37) Alanine Aminotransferase (ALT/SGPT) 26 U/L (16-63) Alkaline Phosphatase 97 U/L (46-116) Troponin I Quantitative < 0.017 ng/mL (0-0.055) 0.018 ng/mL (0-0.055) 0.017 ng/mL (0-0.055) [id number]-Vyc-[id number]-Type Natriuretic Peptide 77 pg/mL (0-124) Total Protein 7.2 g/dL (6.4-8.2) Albumin 4.1 g/dL (3.4-5.0) Albumin/Globulin Ratio 1.3 (1.0-1.7) White Blood Count 4.5 x10^3/uL (4.0-11.0) Red Blood Count 4.51 x10^6/uL (4.30-5.70) Hemoglobin 13.2 g/dL (13.0-17.5) Hematocrit 39.6 % (39.0-53.0) Mean Corpuscular Volume 88 fL (79-100) Mean Corpuscular Hemoglobin 29 pg (25-35) Mean Corpuscular Hemoglobin Concent 33 g/dL (31-37) Red Cell Distribution Width 13.0 % (11.5-14.5) Platelet Count 190 x10^3/uL (140-400) Neutrophils (%) (Auto) 66 % (31-73) Lymphocytes (%) (Auto) 23 % (24-48) Monocytes (%) (Auto) 9 % (0-9) Eosinophils (%) (Auto) 1 % (0-3) Basophils (%) (Auto) 1 % (0-3) Neutrophils # (Auto) 3.0 x10^3uL (1.8-7.7) Lymphocytes # (Auto) 1.0 x10^3/uL (1.0-4.8) Monocytes # (Auto) 0.4 x10^3/uL (0.0-1.1) Eosinophils # (Auto) 0.0 x10^3/uL (0.0-0.7) Basophils # (Auto) 0.0 x10^3/uL (0.0-0.2) Test 09/08/19 06:15 Triglycerides Level 107 mg/dL (0-150) Cholesterol Level 148 mg/dL (0-200) LDL Cholesterol, Calculated 93 mg/dL (0-100) VLDL Cholesterol, Calculated 21 mg/dL (0-40) Non-HDL Cholesterol Calculated 114 mg/dL (0-129) HDL Cholesterol 34 mg/dL (40-60) Cholesterol/HDL Ratio 4.0 Assessment/Plan 1. Chest pain with atypical features and most probably musculoskeletal. Myocardial infarction has been ruled out. Plan outpatient 2-D echo to assess LV function and Lexiscan nuclear stress test to rule out ischemia. 2. Hypertension: Controlled 3. Hyperlipidemia: Continue statin therapy 4. Bipolar disorder: Continue current medical regimen Thank you for your consultation TAMARA BACK MD Sep 08, 2019 15:29
--- NOTE | 2019-09-08 15:52 | DS ---
DATE OF DISCHARGE: HOSPITAL COURSE: The patient is a 54-year-old male patient who came in complaining of chest pain, was mostly on the left side. Pain is not associated with any shortness of breath, started at rest when he was watching TV, not associated with any nausea, vomiting or diaphoresis. He was evaluated by the Emergency Room. His EKG was unremarkable. First set of cardiac enzyme was less than 0.017. He was admitted and has 2 more sets of cardiac enzymes that rule out acute myocardial infarction. His fasting lipid profile showed that his serum triglycerides was 107, total cholesterol was 148, LDL cholesterol was 93, VLDL was 21, and HDL cholesterol was 54, the ratio was 4. He was seen in consultation by the Cardiology team and their recommendation was for the patient to be discharged home. The Cardiology office will arrange for him to have an ischemic workup as an outpatient. PHYSICAL EXAMINATION: GENERAL: When I saw him this afternoon, he was resting slightly propped up in bed, in no apparent respiratory distress. No pallor, jaundice, cyanosis or thyromegaly. No jugular venous distention. No limb edema. VITAL SIGNS: Heart rate was 66, blood pressure 126/79, temperature was 97.5, respiratory rate was 20, and oxygen saturation was 94%. HEAD, EYES, EARS, NOSE AND THROAT: Normocephalic, atraumatic. NECK: Supple. CARDIAC: Normal first and second heart sounds. No gallop or murmur. CHEST: Clear to auscultation. No crepitation or rhonchi. ABDOMEN: Distended, soft, nontender. NEUROLOGIC: He was awake, alert, responding appropriately. All cranial nerves intact. EXTREMITIES: He moves extremities without difficulty, ambulates without assistance or assistive devices. LABORATORY DATA: He has 3 sets of cardiac enzymes that ruled out myocardial infarction. His total cholesterol 148, LDL cholesterol 93. DISCHARGE MEDICATIONS: He was discharged home to continue on atorvastatin, calcium 10 mg at bedtime, hydrocortisone, Anusol cream as needed twice a day, hydroxyzine 25 mg 3 times a day, Lamotrigine 100 mg once a day at bedtime, lorazepam 1 mg 3 times a day, Benicar 20 mg once a day, ondansetron 4 mg as needed every 6-8 hours and sertraline for Zoloft 200 mg daily for depression. FINAL DISCHARGE DIAGNOSES: Atypical chest pain, acute myocardial infarction was ruled out. Other medical problems include hypertension, hyperlipidemia, benign prostatic hypertrophy, generalized osteoarthritis and bipolar disorder. ERICA ANDREWS MD DR: STACY/shyanne JOB#: [id number] / [id number]
--- NOTE | 2019-09-08 16:16 | NUR ---
Discharge Note: ALESIA DOBBS [address] Discharge instructions and discharge home medications reviewed with Patient and a copy given. All questions have been answered and understanding verbalized. The following instructions and handouts were given: Follow up with Cardiology for sress test. Discontinued lines and drains: discontinued peripheral IV, pressure dressing applied, catheter tip intact, no apparant Patient discharged to home.
== END 2019-09-08 16:22 | disposition home or self-care (01) ==
LOC: ER 06:50 → 1 SOUTH 09:11
PROVIDERS: ADMIT Internal Medicine; ATTEND Internal Medicine
DX: R07.89 Other chest pain (principal); I10 Essential (primary) hypertension; E78.5 Hyperlipidemia, unspecified; F31.9 Bipolar disorder, unspecified; M15.9 Polyosteoarthritis, unspecified; N40.0 Benign prostatic hyperplasia without lower urinary tract symptoms; F41.8 Other specified anxiety disorders; F17.210 Nicotine dependence, cigarettes, uncomplicated; Z96.659 Presence of unspecified artificial knee joint; Z79.899 Other long term (current) drug therapy; Z79.82 Long term (current) use of aspirin
CPT/HCPCS: 36415; 71045; 80053; 80061; 83880; 84484; 85025; 93005; 96374; 96376; 99285; G0378; J2270; G0379

== ENCOUNTER 2019-10-20 14:15 | Emergency (ER) | payer MEDICARE ==
[~2019-10-20] VITALS: Ht 165.1 cm; Wt 83.0 kg
[~2019-10-20 14:15] MED LIST changes: +ATOR10TA PO; +HYDR25TA PO; +LAMO100T5 PO; +OLME20TA17 PO; +SERT100T PO
[2019-10-20] MEDS ORDERED: IV NORMAL SALINE 1,000ML 1,000 ML IV ONE (14:45)
--- NOTE | 2019-10-20 14:47 | PHYS DOC ---
Past History Past Medical History: Anxiety, High Cholesterol, Hypertension Past Surgical History: No Surgical History Additional Past Surgical Histo: knee surgeries Smoking: Cigarettes Alcohol Use: None Drug Use: None General Adult EDM: Chief Complaint: HYPOTENSION HPI: HPI: 54-year-old male presents with low blood pressure. Patient began to feel more fatigued and tired yesterday. He checked his blood pressure last night and it was lower than normal. He went to his primary physician this morning and his blood pressure was the 1 teens over 70s. Later on just before lunch he checked it and it was a little bit lower. He decided he should come to the emergency room. On arrival his blood pressure is 98/54. The patient does take blood pressure medication but he has not had a dose since yesterday morning, more than 24 hours ago. He has had no recent changes to any of his other medications. He has not had any other significant symptoms. He denies dysuria, urinary frequency, cough, congestion, nausea, vomiting. No fever chills. He just feels very tired. Review of Systems: Review of Systems: Constitutional: Tired, low BP. Denies fever or chills Eyes: Denies change in visual acuity HENT: Denies nasal congestion or sore throat Respiratory: Denies cough or shortness of breath Cardiovascular: Denies chest pain or edema GI: Denies abdominal pain, nausea, vomiting, bloody stools or diarrhea : Denies dysuria Musculoskeletal: Denies back pain or joint pain Integument: Denies rash Neurologic: Denies headache, focal weakness or sensory changes Endocrine: Denies polyuria or polydipsia Lymphatic: Denies swollen glands Psychiatric: Denies depression or anxiety Heart Score: Risk Factors: Risk Factors: DM, Current or recent (<one month) smoker, HTN, HLP, family history of CAD, obesity. Risk Scores: Score 0 - 3: 2.5% MACE over next 6 weeks - Discharge Home Score 4 - 6: 20.3% MACE over next 6 weeks - Admit for Clinical Observation Score 7 - 10: 72.7% MACE over next 6 weeks - Early Invasive Strategies Current Medications: Current Meds: Current Medications Medications (Trade) Dose Ordered Sig/Antonio Start Time Stop Time Status Last Admin Dose Admin Sodium Chloride 1,000 ml @ 1,000 mls/hr 1X ONCE 10/20/19 14:45 10/20/19 15:44 Allergies: Allergies: Allergies Coded Allergies Type Severity Reaction Last Updated Verified risperidone Allergy Severe 06/12/15 No Physical Exam: PE: Constitutional: Well developed, well nourished, no acute distress, non-toxic appearance. [] HENT: Normocephalic, atraumatic, bilateral external ears normal, oropharynx moist, no oral exudates, nose normal. [] Eyes: PERRLA, EOMI, conjunctiva normal, no discharge. [] Neck: Normal range of motion, no tenderness, supple, no stridor. [] Cardiovascular: Heart rate regular rhythm, no murmur [] Lungs & Thorax: Bilateral breath sounds clear to auscultation [] Abdomen: Bowel sounds normal, soft, no tenderness, no masses, no pulsatile masses. [] Skin: Warm, dry, no erythema, no rash. [] Back: No tenderness, no CVA tenderness. [] Extremities: No tenderness, no cyanosis, no clubbing, ROM intact, no edema. [] Neurologic: Alert and oriented X 3, normal motor function, normal sensory function, no focal deficits noted. [] Psychologic: Affect normal, judgement normal, mood normal. [] EKG: EKG: Sinus rhythm, rate 78, normal axis, no ST elevations or depressions. [] Radiology/Procedures: Radiology/Procedures: [] Impressions: CHEST AP ONLY Clinical History: Low blood pressure Technique: AP view of the chest was obtained at 10/20/2019 2:45 PM. Comparison: September 07, 2019. Findings: The cardiomediastinal silhouette is normal. The pulmonary vasculature is normal. The lungs and pleural margins are clear. Impression: No evidence of an acute cardiopulmonary process. Electronically signed by: Alesia Gonzalez III, MD (10/20/2019 3:06 PM) [id number] DICTATED AND SIGNED BY: ALESIA GONZALEZ III, MD DATE: 10/20/19 1506 CC: LEENA FINCH DO; ESTEPHANIA ESPARZA ~ Course & Med Decision Making: Course & Med Decision Making Pertinent Labs and Imaging studies reviewed. (See chart for details) The patient's chest x-ray is unremarkable. His labs are unremarkable except for slightly elevated creatinine 1.5. We have given him a liter of normal saline. His blood pressure is improved to 107/74. Maybe he is slightly dehydrated. I do not see any other cause for hypotension. It is also possible that he has had some stacking from his medications given his slightly elevated creatinine. He will follow-up with his primary care physician. He is stable for discharge at this time. [] Dragon Disclaimer: Dragon Disclaimer: This electronic medical record was generated, in whole or in part, using a voice recognition dictation system. Departure Departure: Impression: Primary Impression: Hypotension Qualified Codes: I95.2 - Hypotension due to drugs Additional Impression: Elevated serum creatinine Disposition: HOME, SELF-CARE Condition: STABLE Referrals: ESTEPHANIA ESPARZA (PCP) Patient Instructions: Hypotension, [id number] LEENA FINCH DO Oct 20, 2019 14:47
[2019-10-20 15:06] LABS: BASO % 1 % (0-3); EOS # 0.1 x10^3/uL (0.0-0.7); EOS % 1 % (0-3); HEMATOCRIT 39.5 % (39.0-53.0); HEMOGLOBIN 13.3 g/dL (13.0-17.5); LYMPH # 1.1 x10^3/uL (1.0-4.8); LYMPH % 27 % (24-48); MEAN CORPUSCULAR HEMOGLOBIN 30 pg (25-35); MEAN CORPUSCULAR HGB CONC 34 g/dL (31-37); MEAN CORPUSCULAR VOLUME 89 fL (79-100); MONO # 0.4 x10^3/uL (0.0-1.1); MONO % 9 % (0-9); NEUT # 2.5 x10^3uL (1.8-7.7); NEUT % 62 % (31-73); PLATELET COUNT 187 x10^3/uL (140-400); RED BLOOD COUNT 4.45 x10^6/uL (4.30-5.70); RED CELL DISTRIBUTION WIDTH 13.6 % (11.5-14.5); WHITE BLOOD COUNT 4.1 x10^3/uL (4.0-11.0)
--- NOTE | 2019-10-20 15:09 | RAD ---
CHEST AP ONLY Clinical History: Low blood pressure Technique: AP view of the chest was obtained at 10/20/2019 2:45 PM. Comparison: September 07, 2019. Findings: The cardiomediastinal silhouette is normal. The pulmonary vasculature is normal. The lungs and pleural margins are clear. Impression: No evidence of an acute cardiopulmonary process. Electronically signed by: Deejay Gonzalez III, MD (10/20/2019 3:06 PM) [id number]
[2019-10-20 15:15] LABS: CREATININE 1.5 mg/dL (0.7-1.3); GFR 48.8; POTASSIUM 3.8 mmol/L (3.5-5.1)
[2019-10-20 15:21] LABS: ALBUMIN 3.8 g/dL (3.4-5.0); ALBUMIN/GLOBULIN RATIO 1.4 (1.0-1.7); TOTAL BILIRUBIN 0.3 mg/dL (0.2-1.0); TOTAL PROTEIN 6.6 g/dL (6.4-8.2)
[2019-10-20 15:32] LABS: BARBITURATES NEG (NEG); BENZODIAZEPINES NEG (NEG); CANNABINOIDS NEG (NEG); COCAINE NEG (NEG); METHADONE NEG (NEG); OPIATES NEG (NEG); PHENCYCLIDINE NEG (NEG)
[2019-10-20 15:35] LABS: AMPHETAMINE/METHAMPHETAMINE NEG (NEG)
[2019-10-20 15:37] LABS: CLARITY,URINE CLEAR; COLOR,URINE YELLOW
[2019-10-20 15:39] LABS: BILIRUBIN,URINE NEG (NEG); GLUCOSE,URINE NEG (NEG); NITRITE,URINE NEG (NEG)
[2019-10-20 15:41] LABS: BACTERIA,URINE 0 /HPF (0-FEW); SQUAMOUS EPITHELIAL CELL,UR FEW /LPF
[2019-10-20 16:18] VITALS: BP 107/74
--- NOTE | 2019-10-20 18:09 | EKG ---
[address] [address] Test Date: 2019-10-20 Test Time: 14:51:53 Pat Name: ALESIA DOBBS Department: Room: Gender: M Pilot Captain: : 1965 Requested By: LEENA FINCH Order Number: [id number] Reading MD: Gideon Cross MD Measurements Intervals [place] Rate: 78 P: 62 MO: 142 QRS: 58 QRSD: 108 T: 56 QT: 380 QTc: 437 Interpretive Statements SINUS RHYTHM Electronically Signed On 10-23-2019 9:37:36 CDT by Gideon Cross MD
== END 2019-10-20 16:17 | disposition home or self-care (01) ==
LOC: ER 14:15
DX: I95.9 Hypotension, unspecified (principal); R74.0 Nonspecific elevation of levels of transaminase and lactic acid dehydrogenase [LDH]; E78.00 Pure hypercholesterolemia, unspecified; I10 Essential (primary) hypertension; F41.9 Anxiety disorder, unspecified; F17.210 Nicotine dependence, cigarettes, uncomplicated; Z88.8 Allergy status to other drugs, medicaments and biological substances
CPT/HCPCS: 36415; 71045; 80053; 80307; 81001; 84484; 85025; 93005; 96360; 96361; 99285-25; J7030

== ENCOUNTER 2019-11-22 14:30 | Emergency (ER) | payer MEDICARE ==
[~2019-11-22] VITALS: Ht 165.1 cm; Wt 83.0 kg
[2019-11-22 14:49] VITALS: BP 149/77
[2019-11-22] MEDS ORDERED: DICY20TA3 PO (14:57)
--- NOTE | 2019-11-22 14:59 | PHYS DOC ---
Past History Past Medical History: Bipolar, High Cholesterol, Hypertension Past Surgical History: Other Additional Past Surgical Histo: left knee surgery x3; anal fissure repair; hemorrhoidectomy Smoking: Cigarettes Alcohol Use: None Drug Use: None General Adult EDM: Chief Complaint: KNEE INJURY HPI: HPI: Patient is a 54-year-old male who presents to the emergency department for evaluation of 2 weeks of left knee pain, worsens with ambulation. He states he saw his PCP 2 days ago and received an injection of steroids into the knee but that has not helped him. He describes the pain is retropatellar. Has not had any fevers, chills, soft tissue swelling, and has full range of motion in his knee. Weightbearing is painful. He denies any injuries. There are no alleviating or exacerbating factors to his symptoms except as noted above. He denies any other complaints, numbness, weakness, calf pain, chest pain or shortn ess of breath. Review of Systems: Review of Systems: Constitutional: Denies fever or chills Eyes: Denies change in visual acuity HENT: Denies nasal congestion or sore throat Respiratory: Denies cough or shortness of breath Cardiovascular: Denies chest pain or edema GI: Denies abdominal pain, nausea, vomiting, bloody stools or diarrhea : Denies dysuria Musculoskeletal: Denies back pain or joint pain, other than the left knee Integument: Denies rash Neurologic: Denies headache, focal weakness or sensory changes Endocrine: Denies polyuria or polydipsia Lymphatic: Denies swollen glands Psychiatric: Denies depression or anxiety Heart Score: Risk Factors: Risk Factors: DM, Current or recent (<one month) smoker, HTN, HLP, family history of CAD, obesity. Risk Scores: Score 0 - 3: 2.5% MACE over next 6 weeks - Discharge Home Score 4 - 6: 20.3% MACE over next 6 weeks - Admit for Clinical Observation Score 7 - 10: 72.7% MACE over next 6 weeks - Early Invasive Strategies Allergies: Allergies: Allergies Coded Allergies Type Severity Reaction Last Updated Verified risperidone Allergy Severe 10/20/19 No Physical Exam: PE: PHYSICAL EXAM: CONSTITUTIONAL: Well developed, well nourished HEAD: normocephalic, atraumatic EENT: PERRL, EOMI. Conjunctivae normal color, sclerae non-icteric; moist mucous membranes. NECK: Supple, non-tender; no meningismus. LUNGS: Lungs CTA, breathing even and unlabored. Normal air movement. HEART: Regular rate and rhythm, no murmur CHEST: No deformity; non-tender ABDOMEN: The abdomen is soft, and non-tender, no masses or bruits. EXTREM: Normal ROM; no deformity, no calf tenderness. Normal pulses palpable in all extremities. There is no pedal edema. Inspection of the left knee is normal. There is no warmth, erythema, or soft tissue swelling, or exam suggestion of joint effusion. There is full relatively painless range of motion in the left knee and no definite reproducible tenderness to palpation. Gait, however, is antalgic. There is no tenderness palpation to the left calf, PMS is intact distally, there is no thigh soft tissue tenderness to palpation, the hip is nontender. SKIN: No rash; no diaphoresis NEURO: Alert; normal speech and cognition; CN's grossly intact; strength grossly intact without focal deficit. BACK: No CVA TTP. Current Patient Data: Vital Signs: Vital Signs Date Time Temp Pulse Resp B/P (MAP) Pulse Ox O2 Delivery O2 Flow Rate FiO2 11/22/19 14:49 97.5 89 15 149/77 (101) 98 Room Air EKG: EKG: [] Radiology/Procedures: Radiology/Procedures: PROCEDURE: KNEE LEFT 3V Three-view left knee radiographs 11/22/2019 CLINICAL HISTORY: Left knee pain. AP, lateral and oblique digital radiographs of the left knee were obtained. No fracture or dislocation of the left knee is seen. Mild degenerative changes are seen involving all 3 compartments of the left knee. There may be a minimal left knee joint effusion. IMPRESSION: Mild degenerative changes are seen involving the left knee. No acute osseous abnormality is seen.[] Course & Med Decision Making: Course & Med Decision Making Imaging studies reviewed. (See chart for details): Knee x-ray without any evidence of acute pathology. [] Patient remains stable. I discussed test results, the need for close follow- up, and return precautions. Dragon Disclaimer: Shraddha Disclaimer: This electronic medical record was generated, in whole or in part, using a voice recognition dictation system. Departure Departure: Impression: Primary Impression: Knee pain Disposition: 01 HOME/RESIDENCE PRIOR TO ADM Condition: STABLE Referrals: ESTEPHANIA ESPARZA (PCP) Patient Instructions: Arthralgia, Knee Pain Additional Instructions: Follow-up with orthopedics at [facility] call [phone] to schedule an appointment. Scripts Diclofenac Sodium (DICLOFENAC SODIUM) 50 Mg Tablet.dr 1 TAB PO BID for pain, #20 TAB 1 Refill Prov: PETERSON BAIN MD 11/22/19 PETERSON BAIN MD November 22, 2019 14:59
--- NOTE | 2019-11-22 15:12 | RAD ---
Three-view left knee radiographs 11/22/2019 CLINICAL HISTORY: Left knee pain. AP, lateral and oblique digital radiographs of the left knee were obtained. No fracture or dislocation of the left knee is seen. Mild degenerative changes are seen involving all 3 compartments of the left knee. There may be a minimal left knee joint effusion. IMPRESSION: Mild degenerative changes are seen involving the left knee. No acute osseous abnormality is seen. Electronically signed by: Michael Prater MD (11/22/2019 3:09 PM) [id number]
[2019-11-22] MEDS ORDERED: KETOROLAC 60 MG/2 ML VIAL. IM ONE (15:15)
[2019-11-22] MEDS ORDERED: DICL50TA4 PO (15:18)
== END 2019-11-22 15:20 | disposition home or self-care (01) ==
LOC: ER 14:30
DX: M25.562 Pain in left knee (principal); E78.00 Pure hypercholesterolemia, unspecified; I10 Essential (primary) hypertension; F32.9 Major depressive disorder, single episode, unspecified; F17.210 Nicotine dependence, cigarettes, uncomplicated; Z88.8 Allergy status to other drugs, medicaments and biological substances
CPT/HCPCS: 73562; 96372; 99283; J1885

== ENCOUNTER 2020-02-09 12:39 | Inpatient (IN) | payer MEDICARE ==
[~2020-02-09] VITALS: Ht 165.1 cm; Wt 82.1 kg
[~2020-02-09 12:39] MED LIST changes: +DICL50TA4 PO; +DICY20TA3 PO
[2020-02-09 15:13] VITALS: BP 108/63
[2020-02-09] MEDS ORDERED: TRAM50TA PO (15:17)
[2020-02-09] MEDS ORDERED: SENN-142 PO (15:17)
[2020-02-09] MEDS ORDERED: OXYC5CAP PO (15:17)
[2020-02-09] MEDS ORDERED: ACET325T21 PO (15:17)
[2020-02-09] MEDS ORDERED: ACETAMINOPHEN 325 MG TABLET PO PRN (16:15)
[2020-02-09] MEDS: traMADol 50 MG TABLET PO PRN (16:38)
[2020-02-09] MEDS ORDERED: hydrOXYzine HCL 25 MG TABLET PO PRN (16:45)
[2020-02-09 20:58] VITALS: BP 112/77
[2020-02-09] MEDS: lamoTRIgine 100 MG TABLET. PO SCH (21:27)
[2020-02-09] MEDS: ATORVASTATIN CALCIUM 10 MG TABLET. PO SCH (21:28)
[2020-02-10] MEDS: traMADol 50 MG TABLET PO PRN ×2 (00:27→19:04)
[2020-02-10] MEDS: oxyCODONE IR 5 MG TABLET PO PRN ×3 (05:30→17:43)
[2020-02-10 08:05] VITALS: BP 105/69
[2020-02-10] MEDS: SERTRALINE 100 MG TABLET. PO SCH (09:08)
[2020-02-10] MEDS: LOSARTAN 50 MG TABLET. PO SCH (09:08)
[2020-02-10] MEDS: ENOXAPARIN 40 MG/0.4 ML SYRINGE. SQ SCH (14:49)
--- NOTE | 2020-02-10 15:59 | RAD ---
Ultrasound venous system of the left leg 02/10/2020. Reason for exam: Swelling. Recent knee surgery. Color Doppler and spectral waveform analysis was performed along with real-time grayscale technique. The deep venous system of the left lower extremity shows normal compressibility and normal Doppler flow and augmentation of flow extending from the common femoral segment to the popliteal segment. The visualized calf veins also appear normal. IMPRESSION: No evidence of DVT. Electronically signed by: Tre Cleveland Jr., MD (02/10/2020 3:56 PM) [id number]
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
[2020-02-10] MEDS: lamoTRIgine 100 MG TABLET. PO SCH (20:46)
[2020-02-10] MEDS: ATORVASTATIN CALCIUM 10 MG TABLET. PO SCH (20:46)
[2020-02-10 20:58] VITALS: BP 121/79
[2020-02-11] MEDS: oxyCODONE IR 5 MG TABLET PO PRN ×4 (01:23→18:41)
[2020-02-11] MEDS: traMADol 50 MG TABLET PO PRN ×3 (02:59→20:54)
[2020-02-11 07:01] LABS: HEMATOCRIT 31.6 % (39.0-53.0); HEMOGLOBIN 10.8 g/dL (13.0-17.5); RED BLOOD COUNT 3.58 x10^6/uL (4.30-5.70); RED CELL DISTRIBUTION WIDTH 13.4 % (11.5-14.5)
[2020-02-11 07:12] LABS: ALBUMIN 3.1 g/dL (3.4-5.0); ALBUMIN/GLOBULIN RATIO 0.9 (1.0-1.7); CALCIUM 8.7 mg/dL (8.5-10.1); CREATININE 1.3 mg/dL (0.7-1.3); GFR 57.5; TOTAL BILIRUBIN 0.9 mg/dL (0.2-1.0); TOTAL PROTEIN 6.6 g/dL (6.4-8.2)
[2020-02-11 08:10] VITALS: BP 100/68
[2020-02-11] MEDS: SERTRALINE 100 MG TABLET. PO SCH (08:41)
[2020-02-11] MEDS: LOSARTAN 50 MG TABLET. PO SCH (08:41)
--- NOTE | 2020-02-11 13:25 | PN ---
DATE: 02/11/2020 SUBJECTIVE: The patient was seen today in followup. He is still complaining of pain in his left knee joint. Nursing staff were concerned about possible cellulitis. I was not really convinced that there is any erythema and the bruises are obviously part of the surgical complication. We did venous Doppler ultrasound yesterday and was negative for DVT and therefore, I did start him on Lovenox 40 mg subQ once a day. As his pain is not well controlled, I added OxyContin 10 mg twice a day. OBJECTIVE: GENERAL: On examining him today, he looked well and was clearly in no apparent respiratory distress. He was slightly pale, but no jaundice, cyanosis, or thyromegaly. No jugular venous distension. No lower limb edema. VITAL SIGNS: His heart rate was 93, blood pressure was 100/68, temperature was 98, respiratory rate was 18, and oxygen saturation was 96% on room air. HEAD, EYES, EARS, NOSE AND THROAT: Normocephalic, atraumatic. NECK: Supple. HEART: Normal first and second heart sounds. No gallop or murmur. CHEST: Clear to auscultation. No crepitation or rhonchi. ABDOMEN: Distended, soft, nontender. NEUROLOGIC: He is grossly intact. EXTREMITIES: Examination of the left knee compared to the right showed the left lower extremity is more swollen with bruises, mostly in the back of the knee joint. The surgical wound is covered with dressing. His intake was 418. No output was recorded. LABORATORY DATA: His lab work this morning showed a white cell count of 5000, hemoglobin 11, hematocrit 32, MCV 88, and platelet count of 192,000. His chemistry showed a serum sodium of 135, potassium 4, chloride 99, bicarbonate 29, anion gap of 7, BUN 9, creatinine 1.3, estimated GFR was 57 mL per minute. His glucose was 102. Calcium was 8.7. Total bilirubin was normal; however, AST, ALT, alkaline phosphatase are all elevated. Total protein was 6.6, albumin 3.1. ASSESSMENT AND PLAN: In summary, this is a 54-year-old male patient who is status post left elective total knee arthroplasty. Other medical problem is hypertension, hyperlipidemia, depression, anxiety, and tobacco abuse. The patient is here for pain management, deep venous thrombosis prophylaxis and start the process of rehabilitation. As his pain is suboptimally controlled, I added OxyContin 10 mg twice a day and should continue with Percocet or oxycodone 5 mg every 4 hours as needed. ERICA ANDREWS MD DR: STACY/shyanne JOB#: [id number] / [id number]
[2020-02-11] MEDS: ENOXAPARIN 40 MG/0.4 ML SYRINGE. SQ SCH (13:43)
[2020-02-11] MEDS: diphenhydrAMINE HCL 25 MG CAPSULE PO PRN (18:41)
[2020-02-11 20:13] VITALS: BP 111/76
[2020-02-11] MEDS: ATORVASTATIN CALCIUM 10 MG TABLET. PO SCH (20:53)
[2020-02-11] MEDS: lamoTRIgine 100 MG TABLET. PO SCH (20:54)
[2020-02-11] MEDS: oxyCODONE ER 10 MG TAB.ER.12H PO SCH (20:58)
[2020-02-12] MEDS: oxyCODONE IR 5 MG TABLET PO PRN ×5 (02:46→20:06)
[2020-02-12] MEDS: diphenhydrAMINE HCL 25 MG CAPSULE PO PRN ×3 (04:35→16:00)
[2020-02-12 08:00] VITALS: BP 113/66
[2020-02-12] MEDS: SENNOSIDES/DOCUSATE 8.6/50MG TABLET. PO PRN ×2 (08:52→20:06)
[2020-02-12] MEDS: SERTRALINE 100 MG TABLET. PO SCH (08:53)
[2020-02-12] MEDS: oxyCODONE ER 10 MG TAB.ER.12H PO SCH ×2 (08:53→20:06)
[2020-02-12] MEDS: LOSARTAN 50 MG TABLET. PO SCH (09:00)
[2020-02-12] MEDS: traMADol 50 MG TABLET PO PRN (14:47)
[2020-02-12] MEDS: HYDROCORTISONE 1% TOPICAL OINTMENT 30GM TUBE. TP SCH ×2 (16:04→20:05)
[2020-02-12 19:26] VITALS: BP 126/70
[2020-02-12] MEDS: lamoTRIgine 100 MG TABLET. PO SCH (20:05)
[2020-02-12] MEDS: ATORVASTATIN CALCIUM 10 MG TABLET. PO SCH (20:06)
--- NOTE | 2020-02-12 20:34 | PN ---
DATE: 02/12/2020 SUBJECTIVE: The patient was seen today as he has been complaining of itchy rash in the back of his left thigh extending all the way to the buttock and also across the other side. It is mostly below the waist without any involvement of the trunk or upper extremity. It is maculopapular in nature, is not shingles as it crosses the midline to the other side and it is very itchy. He has also a blister along with dressing on the anterior aspect of the left knee. As he came into the hospital without any DVT prophylaxis, I did a venous Doppler ultrasound that showed no evidence of deep vein thrombosis. I did start him empirically on Lovenox 40 mg subcutaneously once a day as the only new medication that was started here and therefore, I discontinued that this afternoon. I did increase his diphenhydramine to 50 mg every 6 hours, started him on topical steroids and consulted the wound care team. I left a message with Dr. Falcon; however, he has not returned the call yet at the time of this dictation. When I saw him this afternoon, he looked well and was clearly in no apparent respiratory distress. No pallor, jaundice, cyanosis or thyromegaly. No jugular venous distention. His left lower extremity is more swollen than the right with a skin rash that is mostly in the posterior aspect of the left thigh and left gluteal area and across the midline to the right gluteal area. OBJECTIVE: HEAD, EYES, EARS, NOSE AND THROAT: Showed normocephalic, atraumatic. NECK: Supple. HEART: Normal first and second heart sounds. No gallop, rub or murmur. CHEST: Clear to auscultation. No crepitation or rhonchi. ABDOMEN: Distended, soft, nontender. NEUROLOGIC: He was grossly intact. LABORATORY DATA: As of yesterday, his white cell count was 5000, hemoglobin 11, hematocrit 32, MCV 88 and platelet count of 192,000. His chemistry showed a serum sodium of 135, potassium 4, chloride 99, bicarbonate 29, anion gap of 7, BUN 9, creatinine 1.3, estimated GFR was 57 mL per minute. His glucose was 102, calcium was 8.7. Total bilirubin is normal. AST, ALT, alkaline phosphatase are all elevated. Total protein was 6.6, albumin was 3.2. ASSESSMENT: This is a 54-year-old male patient with advanced osteoarthritis of left knee for which he underwent elective left total knee arthroplasty successfully at the hospital. He unfortunately developed what seems to be very pruritic skin rash involving mainly the skin on the posterior aspect of left thigh, left gluteal area and right gluteal area, very pruritic maculopapular in nature. The only new medication that was started yesterday was the Lovenox, so I discontinued that. He has multiple other medical problems including: A. Hypertension. B. Hyperlipidemia. C. Depression and anxiety. D. Tobacco abuse. PLAN: My plan is to discontinue the Lovenox and start him on topical steroids twice a day and increased the diphenhydramine to 50 mg every 6 hours. He also has a blister along the surgical incision for which we have consulted the wound care team. I left a message with Dr. Falcon office to basically see whether we can put him on oral steroids. He did not intend to put him on any DVT prophylaxis to start with. ERICA ANDREWS MD DR: STACY/shyanne JOB#: [id number] / [id number]
[2020-02-13] MEDS: traMADol 50 MG TABLET PO PRN ×2 (03:38→13:49)
[2020-02-13] MEDS: diphenhydrAMINE HCL 25 MG CAPSULE PO PRN ×2 (04:36→16:30)
[2020-02-13 04:59] VITALS: BP 109/67
[2020-02-13] MEDS: HYDROCORTISONE 1% TOPICAL OINTMENT 30GM TUBE. TP SCH ×2 (05:00→20:21)
[2020-02-13] MEDS: oxyCODONE IR 5 MG TABLET PO PRN ×3 (05:02→16:30)
[2020-02-13 06:18] LABS: HEMATOCRIT 30.9 % (39.0-53.0); HEMOGLOBIN 10.7 g/dL (13.0-17.5); RED BLOOD COUNT 3.5 x10^6/uL (4.30-5.70); RED CELL DISTRIBUTION WIDTH 13.6 % (11.5-14.5); WHITE BLOOD COUNT 6.1 x10^3/uL (4.0-11.0)
[2020-02-13 06:30] LABS: ALBUMIN 3.2 g/dL (3.4-5.0); ALBUMIN/GLOBULIN RATIO 0.9 (1.0-1.7); CALCIUM 8.8 mg/dL (8.5-10.1); CREATININE 1.5 mg/dL (0.7-1.3); GFR 48.8; POTASSIUM 4.2 mmol/L (3.5-5.1); TOTAL BILIRUBIN 0.8 mg/dL (0.2-1.0); TOTAL PROTEIN 6.9 g/dL (6.4-8.2)
[2020-02-13 08:10] VITALS: BP 108/72
[2020-02-13] MEDS: oxyCODONE ER 10 MG TAB.ER.12H PO SCH ×2 (08:51→20:21)
[2020-02-13] MEDS: LOSARTAN 50 MG TABLET. PO SCH (08:51)
[2020-02-13] MEDS: SERTRALINE 100 MG TABLET. PO SCH (08:51)
[2020-02-13] MEDS: SENNOSIDES/DOCUSATE 8.6/50MG TABLET. PO PRN (08:52)
[2020-02-13] MEDS ORDERED: POLYETHYLENE GLYCOL 3350 17 GM PACKET. PO PRN (16:15)
[2020-02-13 19:37] VITALS: BP 99/58
--- NOTE | 2020-02-13 19:37 | PN ---
DATE: 02/13/2020 SUBJECTIVE: The patient was seen today as the nursing staff stated that he continued to have severe pain, although have increased his pain medication yesterday from 5 to 10 mg of oxycodone immediate release every 4 hours as needed and I added OxyContin 10 mg twice a day for his skin rash. I started him on topical steroids and increase Benadryl to 50 mg 4 times a day. He has a blister on his wound for which he was seen by the wound care. I did speak with the orthopedic surgeon as he came to our facility without any DVT prophylaxis and apparently he was supposed to be on aspirin 325 mg twice a day. He is also scheduled to be followed at the [facility] in [place] on 03/01/2020 at 0930 hours. PHYSICAL EXAMINATION: GENERAL: When I examined him this afternoon, he looked well and was clearly in no apparent respiratory distress. No pallor, jaundice, cyanosis or thyromegaly. No jugular venous distention. No lower limb edema. VITAL SIGNS: His heart rate was 99, blood pressure was 108/72, temperature was 98.2, respiratory rate was 16, and oxygen saturation was 92% on room air. HEAD, EYES, EARS, NOSE, AND THROAT: Showed normocephalic and atraumatic. NECK: Supple. HEART: Showed normal first and second heart sounds. No gallop or murmur. CHEST: Clear to auscultation. No crepitation or rhonchi. ABDOMEN: Distended, soft, nontender. NEUROLOGIC: He is grossly intact. His left lower extremity continued to be more swollen with bruises on the outer aspect of left thigh and outer aspect of the left leg. He has a maculopapular rash extending into the posterior aspect of the left thigh to the gluteal area on both sides, it seems itchy today. I did increase his Benadryl to 50 mg every 6 hours. I also started him on topical steroids. I did discontinue Lovenox as the only medication that was started new. I will start him also on aspirin 325 mg twice a day. Meanwhile, we will continue with current plan of care with pain medication, deep venous thrombosis prophylaxis and rehabilitation. ERICA ANDREWS MD DR: STACY/shyanne JOB#: [id number] / [id number]
[2020-02-13] MEDS: lamoTRIgine 100 MG TABLET. PO SCH (20:20)
[2020-02-13] MEDS: ATORVASTATIN CALCIUM 10 MG TABLET. PO SCH (20:20)
[2020-02-13] MEDS: ASPIRIN 325 MG TABLET PO SCH (20:20)
[2020-02-13] MEDS: DOCUSATE SODIUM 100 MG CAPSULE PO SCH (20:20)
[2020-02-14 05:37] VITALS: BP 129/88
[2020-02-14] MEDS: traMADol 50 MG TABLET PO PRN (05:40)
[2020-02-14 07:21] VITALS: BP 112/67
[2020-02-14] MEDS: SERTRALINE 100 MG TABLET. PO SCH (07:26)
[2020-02-14] MEDS: ASPIRIN 325 MG TABLET PO SCH ×2 (07:26→20:09)
[2020-02-14] MEDS: DOCUSATE SODIUM 100 MG CAPSULE PO SCH ×2 (07:26→20:09)
[2020-02-14] MEDS: LOSARTAN 50 MG TABLET. PO SCH (07:27)
[2020-02-14] MEDS: HYDROCORTISONE 1% TOPICAL OINTMENT 30GM TUBE. TP SCH ×2 (07:27→20:10)
[2020-02-14] MEDS: oxyCODONE ER 10 MG TAB.ER.12H PO SCH ×2 (09:27→20:10)
--- NOTE | 2020-02-14 16:10 | PDOC2 ---
CONSULT DOS: DATE: 02/14/20 TIME: 16:00 Reason for Consult: Blood blister adjacent to surgical incision and pruitic rash on posterior leg Referring Physician: Dr Ivy Source: Patient History of Present Illness Patient currently on swing bed at [facility] following elective left knee arthroplasty. Wound care consulted due to development of blood-filled blister adjacent to incision site along with pruritic rash to the posterior leg. Patient states that this is his fourth surgery to the left knee. Patient s tates that he is able to ambulate on the affected leg and is able to straighten the leg completely. Patient states that over the last few days his pain has been tolerable. Patient states the rash to the posterior leg does itch, however is not intolerable. Patient denies history of difficulty with wound healing. Past Medical History Significant for hypertension, hyperlipidemia, depression, anxiety as well as tobacco abuse. Past Surgical History Significant for 3 operations in left knee; first one about a ruptured Bowens cyst, the other one was for ruptured ligament and the third one was about total knee arthroplasty. Other operations include anal Social History Patient lives at home alone. Patient is currently on disability due to bipolar disorder. Patient does have a history of tobacco use. Patient denies alcohol use or illicit drug use. Current Medications Current Medications Acetaminophen (Tylenol) 325 mg PRN Q6HRS PRN PO pain or fever Last administered on 02/12/20 08:52; Start 02/09/20 at 16:15 Atorvastatin Calcium (Lipitor) 10 mg QHS PO Last administered on 02/13/20at 20:20; Start 02/09/20 at 21:00 Hydroxyzine HCl (Atarax) 25 mg PRN QHS PRN PO sleep; Start 02/09/20 at 16:45 Lamotrigine (LaMICtal) 150 mg HS PO Last administered on 02/13/20 20:20; Start 02/09/20 at 21:00 Senna/Docusate Sodium (Senna Plus) 1 tab PRN BID PRN PO CONSTIPATION Last administered on 02/13/20 08:52; Start 02/09/20 at 16:15 Sertraline HCl (Zoloft) 200 mg DAILY PO Last administered on 02/14/20at 07:26; Start 02/10/20 at 09:00 Tramadol HCl (Ultram) 50 mg PRN Q6HRS PRN PO MILD PAIN 1-3 Last administered on 02/14/20 05:40; Start 02/09/20 at 16:15 Losartan Potassium (Cozaar) 100 mg DAILY PO Last administered on 02/14/20 07:27; Start 02/10/20 at 09:00 Oxycodone HCl (Roxicodone) 5 mg PRN Q4HRS PRN PO MOD-SEVERE PAIN Last administered on 02/11/20 13:43; Start 02/09/20 at 16:45; Stop 02/11/20 at 18:25; Status DC Enoxaparin Sodium (Lovenox 40mg Syringe) 40 mg Q24H SQ Last administered on 02/11/20 13:43; Start 02/10/20 at 14:30; Stop 02/12/20 at 14:42; Status DC Oxycodone HCl (OxyCONTIN) 10 mg Q12HR PO Last administered on 02/14/20 09:27; Start 02/11/20 at 21:00 Oxycodone HCl (Roxicodone) 10 mg PRN Q4HRS PRN PO MOD-SEVERE PAIN Last administered on 02/13/20 16:30; Start 02/11/20 at 18:30 Diphenhydramine HCl (Benadryl) 25 mg PRN Q6HRS PRN PO ITCHING Last administered on 02/12/20 08:52; Start 02/11/20 at 18:30; Stop 02/12/20 at 14:42; Status DC Diphenhydramine HCl (Benadryl) 50 mg PRN Q6HRS PRN PO ITCHING Last administered on 02/13/20 16:30; Start 02/12/20 at 14:45 Hydrocortisone (Cortaid) 1 paige BID TP Last administered on 02/14/20 07:27; Start 02/12/20 at 16:00 Aspirin (Yaquelin Aspirin) 325 mg BID PO Last administered on 02/14/20 07:26; Start 02/13/20 at 21:00 Docusate Sodium (Colace) 100 mg BID PO Last administered on 02/14/20 07:26; Start 02/13/20 at 21:00 Polyethylene Glycol (miraLAX) 17 gm DAILY PRN PO CONSTIPATION Last administered on 8/5/20at 05:41; Start 02/13/20 at 16:15 Active Scripts Active Reported Oxycodone Hcl 5 Mg Capsule 5 Mg PO PRN Q4HRS PRN Tramadol Hcl (Tramadol HCl) 50 Mg Tablet 50 Mg PO PRN Q6HRS PRN Senna-S Laxative Tablet (Sennosides/Docusate Sodium) 1 Each Tablet 1 Each PO PRN BID PRN Acetaminophen 325 Mg Tablet 1 Tab PO PRN Q6-8HRS PRN 30 Days Lamictal (Lamotrigine) 100 Mg Tablet 1.5 Tab PO HS Hydroxyzine Hcl 25 Mg Tablet 1 Tab PO HS PRN Zoloft (Sertraline Hcl) 100 Mg Tablet 2 Tab PO DAILY Benicar (Olmesartan Medoxomil) 20 Mg Tablet 1 Tab PO DAILY 30 Days Lipitor (Atorvastatin Calcium) 10 Mg Tablet 1 Tab PO QHS Allergies: Coded Allergies: risperidone (Unverified Allergy, Severe, 10/20/19) General: No: Chills, Fatigue, Appetite PSYCHOLOGICAL ROS: No: Anxiety, Depression Respiratory: No: Cough, Shortness of breath, SOB with excertion Cardiovascular: No: Chest Pain, Edema Gastrointestinal: No: Nausea, Vomiting, Diarrhea Musculoskeletal: YES: Joint Pain (Of the left knee.) Neurological: No: Behavorial Changes, Headaches Physical Exam Patient awake and alert 54-year-old male in no apparent distress. Vital signs are stable. Patient is afebrile. Patient is on room air not requiring supplemental oxygen. Respirations are even and unlabored. Abdomen is soft, nondistended and nontender. Skin is warm, dry and pink. The left knee presents with an incision which has edges well approximated with justus present. There is edema present. There is no active drainage from the incision site and there is no surrounding erythema or warmth. There is a 1 x 1.7 cm blood-filled blister to the lateral aspect of the incision site. There is a erythemic macular rash to the posterior left thigh that extends up into the gluteus. VITALS Vital Signs Date Time Temp Pulse Resp B/P (MAP) Pulse Ox O2 Delivery O2 Flow Rate FiO2 02/14/20 13:41 18 02/14/20 09:27 Room Air 02/14/20 07:27 91 112/67 02/14/20 07:23 92 8/5/20 07:21 98.2 Labs Laboratory Tests Test 02/13/20 05:54 White Blood Count 6.1 x10^3/uL (4.0-11.0) Red Blood Count 3.50 x10^6/uL (4.30-5.70) Hemoglobin 10.7 g/dL (13.0-17.5) Hematocrit 30.9 % (39.0-53.0) Mean Corpuscular Volume 88 fL (79-100) Mean Corpuscular Hemoglobin 31 pg (25-35) Mean Corpuscular Hemoglobin Concent 35 g/dL (31-37) Red Cell Distribution Width 13.6 % (11.5-14.5) Platelet Count 215 x10^3/uL (140-400) Sodium Level 132 mmol/L (136-145) Potassium Level 4.2 mmol/L (3.5-5.1) Chloride Level 96 mmol/L (98-107) Carbon Dioxide Level 30 mmol/L (21-32) Anion Gap 6 (6-14) Blood Urea Nitrogen 16 mg/dL (8-26) Creatinine 1.5 mg/dL (0.7-1.3) Estimated GFR (Cockcroft-Gault) 48.8 BUN/Creatinine Ratio 11 (6-20) Glucose Level 90 mg/dL (70-99) Calcium Level 8.8 mg/dL (8.5-10.1) Total Bilirubin 0.8 mg/dL (0.2-1.0) Aspartate Amino Transf (AST/SGOT) 68 U/L (15-37) Alanine Aminotransferase (ALT/SGPT) 90 U/L (16-63) Alkaline Phosphatase 216 U/L (46-116) Total Protein 6.9 g/dL (6.4-8.2) Albumin 3.2 g/dL (3.4-5.0) Albumin/Globulin Ratio 0.9 (1.0-1.7) Assessment/Plan 1) status post elective left knee arthroplasty -Patient currently on swing bed at [facility], receiving PT OT services for rehabilitation -Cleanse incision site with ChloraPrep. Apply skin prep to the blood-filled blister and cover incision site with Aquasol AG and border gauze. Change every 3 days or as needed if dressing loose or saturated -Monitor blister. If edges are extending may require I&D. - Does not look like an infectious process at this time. We will continue to monitor closely 2) contact dermatitis to the posterior left leg -Continue hydrocortisone cream as prescribed by PCP RONI BONDS APRN Feb 14, 2020 16:10
[2020-02-14] MEDS: ATORVASTATIN CALCIUM 10 MG TABLET. PO SCH (20:09)
[2020-02-14] MEDS: lamoTRIgine 100 MG TABLET. PO SCH (20:10)
[2020-02-14 20:12] VITALS: BP 109/78
[2020-02-15 07:19] VITALS: BP 114/76
[2020-02-15] MEDS: DOCUSATE SODIUM 100 MG CAPSULE PO SCH ×2 (07:45→20:15)
[2020-02-15] MEDS: SERTRALINE 100 MG TABLET. PO SCH (07:46)
[2020-02-15] MEDS: ASPIRIN 325 MG TABLET PO SCH ×2 (07:46→20:16)
[2020-02-15] MEDS: oxyCODONE ER 10 MG TAB.ER.12H PO SCH ×2 (07:46→20:15)
[2020-02-15] MEDS: HYDROCORTISONE 1% TOPICAL OINTMENT 30GM TUBE. TP SCH ×2 (07:46→20:18)
[2020-02-15] MEDS: LOSARTAN 50 MG TABLET. PO SCH (07:46)
[2020-02-15] MEDS: traMADol 50 MG TABLET PO PRN (10:46)
[2020-02-15 20:00] VITALS: BP 116/82
[2020-02-15] MEDS: ATORVASTATIN CALCIUM 10 MG TABLET. PO SCH (20:15)
[2020-02-15] MEDS: lamoTRIgine 100 MG TABLET. PO SCH (20:16)
[2020-02-16] MEDS: DOCUSATE SODIUM 100 MG CAPSULE PO SCH ×2 (08:29→20:40)
[2020-02-16] MEDS: ASPIRIN 325 MG TABLET PO SCH ×2 (08:29→20:40)
[2020-02-16] MEDS: SERTRALINE 100 MG TABLET. PO SCH (08:30)
[2020-02-16] MEDS: LOSARTAN 50 MG TABLET. PO SCH (08:30)
[2020-02-16] MEDS: oxyCODONE ER 10 MG TAB.ER.12H PO SCH ×2 (08:30→20:41)
[2020-02-16] MEDS: HYDROCORTISONE 1% TOPICAL OINTMENT 30GM TUBE. TP SCH ×2 (08:30→20:41)
[2020-02-16 08:51] VITALS: BP 104/69
[2020-02-16] MEDS ORDERED: ONDANSETRON ODT 4 MG TAB.RAPDIS PO PRN (09:00)
[2020-02-16 20:25] VITALS: BP 126/82
[2020-02-16] MEDS: ATORVASTATIN CALCIUM 10 MG TABLET. PO SCH (20:40)
[2020-02-16] MEDS: lamoTRIgine 100 MG TABLET. PO SCH (20:41)
[2020-02-17 08:14] VITALS: BP 103/68
[2020-02-17] MEDS: LOSARTAN 50 MG TABLET. PO SCH (08:17)
[2020-02-17] MEDS: DOCUSATE SODIUM 100 MG CAPSULE PO SCH ×2 (08:17→20:38)
[2020-02-17] MEDS: SERTRALINE 100 MG TABLET. PO SCH (08:17)
[2020-02-17] MEDS: ASPIRIN 325 MG TABLET PO SCH ×2 (08:17→20:37)
[2020-02-17] MEDS: oxyCODONE ER 10 MG TAB.ER.12H PO SCH ×2 (08:18→20:38)
[2020-02-17] MEDS: diphenhydrAMINE HCL 25 MG CAPSULE PO PRN (08:26)
[2020-02-17] MEDS: HYDROCORTISONE 1% TOPICAL OINTMENT 30GM TUBE. TP SCH ×2 (09:00→20:38)
[2020-02-17 17:32] VITALS: BP 105/69
[2020-02-17] MEDS: ATORVASTATIN CALCIUM 10 MG TABLET. PO SCH (20:37)
[2020-02-17] MEDS: lamoTRIgine 100 MG TABLET. PO SCH (20:38)
[2020-02-17 21:02] VITALS: BP 113/71
[2020-02-18 07:54] VITALS: BP 112/75
[2020-02-18] MEDS: DOCUSATE SODIUM 100 MG CAPSULE PO SCH ×2 (08:48→20:05)
[2020-02-18] MEDS: ASPIRIN 325 MG TABLET PO SCH ×2 (08:48→20:05)
[2020-02-18] MEDS: SERTRALINE 100 MG TABLET. PO SCH (08:49)
[2020-02-18] MEDS: HYDROCORTISONE 1% TOPICAL OINTMENT 30GM TUBE. TP SCH ×2 (08:49→20:08)
[2020-02-18] MEDS: oxyCODONE ER 10 MG TAB.ER.12H PO SCH ×2 (08:50→20:05)
[2020-02-18] MEDS: LOSARTAN 50 MG TABLET. PO SCH (08:52)
[2020-02-18] MEDS: ATORVASTATIN CALCIUM 10 MG TABLET. PO SCH (20:05)
[2020-02-18] MEDS: lamoTRIgine 100 MG TABLET. PO SCH (20:05)
[2020-02-18 20:34] VITALS: BP 103/64
[2020-02-19 07:38] VITALS: BP 127/78
[2020-02-19] MEDS: SERTRALINE 100 MG TABLET. PO SCH (07:55)
[2020-02-19] MEDS: DOCUSATE SODIUM 100 MG CAPSULE PO SCH (07:55)
[2020-02-19] MEDS: ASPIRIN 325 MG TABLET PO SCH (07:55)
[2020-02-19 07:56] VITALS: BP 127/78
[2020-02-19] MEDS: LOSARTAN 50 MG TABLET. PO SCH (07:56)
[2020-02-19] MEDS: oxyCODONE ER 10 MG TAB.ER.12H PO SCH (07:56)
[2020-02-19] MEDS: HYDROCORTISONE 1% TOPICAL OINTMENT 30GM TUBE. TP SCH (07:56)
--- NOTE | 2020-02-19 10:44 | DS ---
DATE OF DISCHARGE: 02/19/2020 ATTENDING PHYSICIAN: Dr. Ivy and Dr. Johnson FINAL DISCHARGE DIAGNOSES: 1. Degenerative arthritis of left knee, status post left total knee arthroplasty. 2. Essential hypertension. 3. Hyperlipidemia. 4. Depression. 5. Anxiety. 6. Tobacco abuse. HISTORY AND PHYSICAL: This is a 54-year-old gentleman who had surgery at [facility] for elective total knee. He was sent here on 02/09 for rehabilitation, pain control and DVT prophylaxis. PHYSICAL EXAMINATION: Please see the dictated note. PERTINENT LABORATORY AND X-RAY STUDIES: Admission hemoglobin was 10.8 g/dL with a white count of 5000. Chemistry panel was unremarkable. Creatinine 1.3 mg percent, nonfasting blood sugar 90. Transaminases slightly elevated with an alkaline phosphatase of 198, AST 73 and ALT of 98. Bilirubin is normal at 0.9 mg/dL. COURSE IN THE HOSPITAL: The patient was admitted. He had pain controlled. Home meds were continued. He tolerated rehabilitation well. He was ambulating with minimal assistance. No new complaints. On the 10th hospital day, he was stable and ready for discharge. At this time, I wrote scripts for oxycodone 5 mg every 4 hours as needed for pain. Continuation of his home meds including atorvastatin, aspirin daily, docusate, Lamictal, losartan, MiraLax and Zoloft, doses unchanged. He will follow up with his regular PCP. The patient was then discharged from our hospital in stable condition with explicit instructions and followup care. SHAWNEE JOHNSON MD DR: CECILIO/shyanne JOB#: [id number] / [id number] ERICA Fulton MD, JAROD PA
== END 2020-02-19 10:57 | disposition home health service (06) | DRG 556 ==
LOC: LND 14:33
PROVIDERS: ADMIT Internal Medicine; ATTEND Internal Medicine
DX: M25.562 Pain in left knee (principal); E78.5 Hyperlipidemia, unspecified; F17.210 Nicotine dependence, cigarettes, uncomplicated; F31.9 Bipolar disorder, unspecified; F41.9 Anxiety disorder, unspecified; Z96.652 Presence of left artificial knee joint; I10 Essential (primary) hypertension; L25.9 Unspecified contact dermatitis, unspecified cause; M17.12 Unilateral primary osteoarthritis, left knee; Z79.82 Long term (current) use of aspirin; Z80.8 Family history of malignant neoplasm of other organs or systems; Z79.899 Other long term (current) drug therapy; Z88.8 Allergy status to other drugs, medicaments and biological substances
CPT/HCPCS: 36415; 80053; 85027; 93971; 99406; J1650; Q0162; Q0163; 97110; 97116; 97530; 97535

== ENCOUNTER → 2020-04-09 | Outpatient (CLI) | payer MEDICARE ==
[~2020-04-09] MED LIST changes: +ACET325T21 PO; +OXYC5CAP PO; +SENN-142 PO; +TRAM50TA PO
--- NOTE | 2020-04-09 12:44 | CARD ---
MR#: [id number] Date of Study: 04/09/2020 Ordering Physician: TAMARA BACK, Referring Physician: TAMARA BACK, Tech: Natalya Longo RDCS APPROVED REPORT EXAM: Two-dimensional and M-mode echocardiogram with Doppler and color Doppler. Other Information Quality : Good INDICATION Chest Pain 1 ppd Smoker 2D DIMENSIONS RVDd2.7 (2.9-3.5cm)Left Atrium(2D)3.2 (1.6-4.0cm) IVSd1.2 (0.7-1.1cm)Aortic Root(2D)3.1 (2.0-3.7cm) LVDd4.8 (3.9-5.9cm)LVOT Diameter2.0 (1.8-2.4cm) PWd1.0 (0.7-1.1cm)LVDs3.3 (2.5-4.0cm) FS (%) 30.1 %SV60.5 ml LVEF(%)57.3 (>50%) Aortic Valve AoV Peak Balbir.153.9cm/sAoV VTI23.5cm AO Peak GR.9.5mmHgLVOT Peak Balbir.117.4cm/s LVOT VTI 17.32cmAO Mean GR.5mmHg CAROL (VMAX)2.04ws0OCJ (VTI)2.31cm2 Mitral Valve MV E Tnizsdpy62.4cm/sMV DECEL UXVR124mm MV A Tmpitvjb36.7cm/sE/A Ratio0.9 Tricuspid Valve TR P. Wefaaayx975dn/sRAP ZTOKBSKS7ezDe TR Peak Gr.51goJoUHRT21jqWk Pulmonary Vein S1 Deowkbsg32.7cm/sD2 Ptrgzdta09.8cm/s LEFT VENTRICLE The left ventricle is normal size. There is normal left ventricular wall thickness. The left ventricu lar systolic function is normal and the ejection fraction is within normal range. The Ejection Fracti on is 55-60%. There is normal LV segmental wall motion. Transmitral Doppler flow pattern is Grade I-a bnormal relaxation pattern. RIGHT VENTRICLE The right ventricle is normal size. The right ventricular systolic function is normal. ATRIA The left atrium size is normal. The right atrium size is normal. The interatrial septum is intact wit h no evidence for an atrial septal defect or patent foramen ovale as noted on 2-D or Doppler imaging. AORTIC VALVE The aortic valve is normal in structure and function. Doppler and Color Flow revealed no significant aortic regurgitation. There is no significant aortic valvular stenosis. MITRAL VALVE The mitral valve is calcified but opens well. There is no evidence of mitral valve prolapse. There is no mitral valve stenosis. Doppler and Color-flow revealed trace mitral regurgitation. TRICUSPID VALVE The tricuspid valve is normal in structure and function. Doppler and Color Flow revealed trace tricus pid regurgitation. The PA pressure was estimated at 26 mmHg. There is no tricuspid valve stenosis. PULMONIC VALVE The pulmonic valve is not well visualized. Doppler and Color Flow revealed trace to mild pulmonic oumou vular regurgitation. There is no pulmonic valvular stenosis. GREAT VESSELS The aortic root is normal in size. The ascending aorta is normal in size. The IVC is normal in size a nd collapses >50% with inspiration. PERICARDIAL EFFUSION There is no evidence of significant pericardial effusion. Critical Notification Critical Value: No <Conclusion> The left ventricular systolic function is normal and the ejection fraction is within normal range. Th e Ejection Fraction is 55-60%. There is normal LV segmental wall motion. Signed by : Gideon Cross, Electronically Approved : 04/09/2020 12:43:48
== END | disposition home or self-care (01) ==
LOC: ECHO 08:28
PROVIDERS: ATTEND Internal Medicine Cardiovascular Disease
DX: I08.8 Other rheumatic multiple valve diseases (principal)
CPT/HCPCS: 93306

== ENCOUNTER 2020-08-13 09:35 | Emergency (ER) | payer MEDICARE ==
[~2020-08-13] VITALS: Ht 165.1 cm; Wt 86.5 kg
[2020-08-13] MEDS ORDERED: IOHEXOL 350 MG/ML 100 ML VIAL. IV ONE ×2 (09:45)
--- NOTE | 2020-08-13 09:51 | PHYS DOC ---
Past History Past Medical History: Bipolar, High Cholesterol, Hypertension Past Surgical History: Other Additional Past Surgical Histo: left knee surgery x3; anal fissure repair; hemorrhoidectomy Smoking: Cigarettes Alcohol Use: None Drug Use: None General Adult EDM: Chief Complaint: CHEST PAIN HPI: HPI: HPI/ED course: This is a pleasant 55-year-old male presented to the emergency department by EMS. His initial complaint was chest pain which started about 8:00. He then started developing severe numbness of his left upper extremity with some weakness of his left upper extremity. His last known well for neurologic deficit was 8:30 AM today. Onset today. His chest pain is a mild pressure sensation which is nonradiating. It is not a ripping or tearing sensation. No alleviating or exacerbating factors. He denies vomiting fevers or chills. On arrival, the patient was classified as a code stroke. Head CT unremarkable reported to me by the radiologist by phone. I also spoke with the radiologist by phone who reviewed the film for the angiogram of the chest neck and head. No signs of aortic dissection, large vessel occlusion, or aneurysm. Patient's glucose was 111. I went through TPA contraindication checklist. Patient meets qualifications for TPA as his onset of neurologic symptoms were less than 4-1/2 hours, he is greater than 18 years old and there is no measurable neurologic deficit. He does not have any exclusion criteria. He has not had a ischemic stroke in the past 3 months, he has not had an intracranial hemorrhage in the past, he has not had an intra-axial neoplasia. He does not have gastrointestinal malignancy. He has not had gastrointestinal hemorrhage in the last 21 days. He has not had any intracranial or intraspinal surgery in the last 3 months. He does not have clinical symptoms suggestive of subarachnoid hemorrhage. His blood pressure is less than 185 sys and less than 110 diastolic. He does not have internal bleeding. He does not have symptoms consistent of infectious endocarditis. There are no signs of aortic arch dissection on CT angiogram of the neck and superior portion of the chest. He does not have bleeding diathesis. He is not on a blood thinner. Head CT shows no hemorrhage and no obvious hypodensities consistent with a reversible injury. His symptoms are not rapidly improving. Glucose is within normal limits. He has not had serious trauma in the last 14 days. He has not had a major surgery last 14 days. He does not have a history of GI bleeding or bleeding. He did not have a seizure. He has no history of aneurysms. CBC unremarkable. Blood sugar within normal limits. Chemistry panel unremarkable. Troponin within norm al limits. INR within normal limits. tPA was given. We will transfer the patient to [facility] for further treatment and care. I spoke with Dr. Barr who accepts patient for admission to the ICU. Patient had worsening weakness of the left lower extremity so we repeated a CAT scan which was normal by radiology report given to me verbally. Review of Systems: Review of Systems: Review of systems negative for abdominal pain vomiting diaphoresis fevers or chi lls. All other review of systems negative. Current Medications: Current Meds: Current Medications Medications (Trade) Dose Ordered Sig/Antonio Start Time Stop Time Status Last Admin Dose Admin Iohexol (Omnipaque 350 Mg/ml) 100 ml 1X ONCE 08/13/20 09:45 08/13/20 09:46 DC Allergies: Allergies: Allergies Coded Allergies Type Severity Reaction Last Updated Verified risperidone Allergy Severe 10/20/19 No Physical Exam: PE: Constitutional: Well developed, well nourished, no acute distress, non-toxic appearance. [] HENT: Normocephalic, atraumatic, bilateral external ears normal, oropharynx moist, no oral exudates, nose normal. [] Eyes: PERRLA, EOMI, conjunctiva normal, no discharge. [] Neck: Normal range of motion, no tenderness, supple, no stridor. [] Cardiovascular:Heart rate regular rhythm, no murmur [] Lungs & Thorax: Bilateral breath sounds clear to auscultation [] Abdomen: Bowel sounds normal, soft, no tenderness, no masses, no pulsatile masses. [] Skin: Warm, dry, no erythema, no rash. [] Back: No tenderness, no CVA tenderness. [] Extremities: No tenderness, no cyanosis, no clubbing, ROM intact, no edema. [] Neurologic: Mental status: Awake oriented and alert x3 Cranial nerves: Extraocular movements intact, eyebrows karo bilaterally, smile symmetric, uvula elevation nl, shoulder shrug intact bilaterally, tongue protrusion normal Clear speech. Normal [id number]. Sensation: Decreased sensation in the left upper extremity. Normal in the left lower extremity. Normal sensation on the right side. Strength: 4 out of 5 strength in the left upper extremity with pronator drift. Patient has 4 out of 5 strength in the left lower extremity however he relates this to a knee surgery he had about 7 months ago and is working with physical therapy to improve the strength in his lower left leg. He has 5 out of 5 strength in the hip flexor and extension of the left lower extremity. The right upper and lower extremity have 5 out of 5 strength with normal sensation. Psychologic: Affect normal, judgement normal, mood normal. [] EKG: EKG: [] EKG reviewed by myself shows sinus rhythm with a regular rate. ST segments congruent. Not suggestive of acute ischemia. Radiology/Procedures: Radiology/Procedures: [] Heart Score: Risk Factors: Risk Factors: DM, Current or recent (<one month) smoker, HTN, HLP, family history of CAD, obesity. Risk Scores: Score 0 - 3: 2.5% MACE over next 6 weeks - Discharge Home Score 4 - 6: 20.3% MACE over next 6 weeks - Admit for Clinical Observation Score 7 - 10: 72.7% MACE over next 6 weeks - Early Invasive Strategies Course & Med Decision Making: Course & Med Decision Making Pertinent Labs and Imaging studies reviewed. (See chart for details) [] Dragon Disclaimer: Dragon Disclaimer: This electronic medical record was generated, in whole or in part, using a voice recognition dictation system. Departure Departure: Impression: Primary Impression: CHEST PAIN, UNSPECIFIED Additional Impression: CVA (cerebral vascular accident) Disposition: 05 DC/TRF OTHER [place] [place] Condition: GUARDED Referrals: ESTEPHANIA ESPARZA (PCP) NIHSS - ED NIH Stroke Scale: NIH Stroke Scale Response (Comments) Value Level of Consciousness: 0 Alert/Responsive 0 LOC Questions: 0 Answers both correctly 0 LOC Commands: 0 Performs both tasks 0 Best Gaze: 0 Normal 0 Visual: 0 No visual loss 0 Facial Palsy: 1 Minor paralysis (c) 1 Motor - Left Arm 1 Drifts, but can hold 1 Motor - Right Arm 0 No drift 0 Motor - Left Leg 1 Drift but can hold 1 Motor: Right Leg 0 No drift 0 Limb Ataxia: 0 Absent 0 Sensory: 2 Severe to total loss 2 Best Language: 0 Normal 0 Dysathria: 0 Normal 0 Extinction and Inattention: 1 One sensory modality 1 Total 6 Critical Care Time Critical care time spent was 50 minutes exclusive of procedures. Time was spent evaluating the patient, ordering the administration of medications, reevaluating the patient, discussing with the admitting provider and documenting. MELONIE LINDER MD Aug 13, 2020 09:51
--- NOTE | 2020-08-13 09:55 | RAD ---
EXAM: CT Head without IV contrast INDICATION: Reason: left sided numbness / Spl. Instructions: / History: TECHNIQUE: Multi-detector row CT images were obtained of the head without the use of IV contrast. All CT scans performed at this facility utilize dose optimization techniques as appropriate to the exam, including the following: Automated exposure control and adjustment of the mA and/or KV according to patient size (this includes techniques or standardized protocols for targeted exams where dose is ind ication/reason for exam). COMPARISON: None FINDINGS: BRAIN PARENCHYMA: No evidence of acute intraparenchymal hemorrhage or infarct. No abnormal parenchyma l density or mass. VENTRICLES & EXTRA-AXIAL SPACES: Ventricles are within normal limits. Basilar cisterns are patent. N o pathologic extra-axial fluid collection or mass. ORBITS: Orbital contents are unremarkable. SINUSES: Visualized paranasal sinuses and mastoid air cells are clear. OSSEOUS & SOFT TISSUES: Calvarium and skull base are intact. IMPRESSION: No acute intracranial pathology FOR INTERNAL CODING PURPOSES Critical result: Findings discussed with Norbert Goodman at 08/13/2020 9:52 AM. RESULT CODE: (C) Electronically signed by: Eron Karimi MD (08/13/2020 9:52 AM) [id number]
--- NOTE | 2020-08-13 10:24 | RAD ---
EXAM: CT Angiogram of the Head and Neck INDICATION: Reason: code stroke, chest pain and left sided numbness / Spl. Instructions: / History: TECHNIQUE: CT images were obtained through the head per standard CTA protocol. Multiplanar and 3D ref ormatted images were generated from the CT dataset on an independent workstation. All CT scans perfor med at this facility utilize dose optimization techniques as appropriate to the exam, including the f ollowing: Automated exposure control and adjustment of the mA and/or KV according to patient size (th is includes techniques or standardized protocols for targeted exams where dose is indication/reason f or exam). IV CONTRAST: Administered COMPARISON: None FINDINGS: CTA HEAD: No high-grade large vessel stenosis, proximal or branch vessel occlusion, aneurysm, or vascular malfo rmation. ANTERIOR CIRCULATION: Anterior and middle cerebral arteries are widely patent. ANTERIOR COMMUNICATING ARTERY: Patent. POSTERIOR COMMUNICATING ARTERIES: Present bilaterally and patent. POSTERIOR CIRCULATION: Vertebral and basilar arteries are widely patent. Bilateral posterior inferio r cerebellar arteries (PICAs), anterior inferior cerebellar arteries (AICAs), and superior cerebellar arteries (SCAs) are visualized and patent. OTHER: No abnormal brain parenchymal enhancement. The paranasal sinuses, mastoid air cells, and tymp anic cavities are clear. NECK CTA: AORTA: 3 vessel configuration of arch. No dissection or acute aortic injury. No hemodynamically sign ificant great vessel origin stenosis. RIGHT CAROTID: Common and internal carotid arteries are widely patent, without evidence of flow limi ting stenosis or dissection. LEFT CAROTID: Common and internal carotid arteries are widely patent, without evidence of flow limit ing stenosis or dissection. VERTEBRAL ARTERIES: Codominant. No evidence of dissection or flow limiting stenosis. SUBCLAVIAN ARTERIES:Subclavian arteries are patent without stenosis. SOFT TISSUES: Soft tissues are unremarkable. Lung apices show mild centrilobular pattern emphysema. Where applicable, evaluation of ICA stenosis was performed using NASCET criteria, where the site of g reatest stenosis is compared to the diameter of the ICA distal to the carotid bulb. IMPRESSION: Normal CTA of the head and neck. FOR INTERNAL CODING PURPOSES Critical result: Findings discussed with Norbert Goodman at 08/13/2020 10:15 AM. RESULT CODE: (C) Electronically signed by: Eron Karimi MD (08/13/2020 10:21 AM) [id number]
[2020-08-13] MEDS ORDERED: IV NORMAL SALINE 50ML 50 ML IV ONE (10:30)
[2020-08-13] MEDS ORDERED: ALTEPLASE 7.5 MG IV ONE (10:30)
[2020-08-13] MEDS ORDERED: ALTEPLASE IV ONE (10:30)
[2020-08-13 10:40] LABS: BASO % 1 % (0-3); CALCIUM 8.4 mg/dL (8.5-10.1); CREATININE 1.1 mg/dL (0.7-1.3); EOS # 0.1 x10^3/uL (0.0-0.7); EOS % 1 % (0-3); GFR 69.5; HEMOGLOBIN 13.2 g/dL (13.0-17.5); LYMPH # 0.9 x10^3/uL (1.0-4.8); LYMPH % 21 % (24-48); MEAN CORPUSCULAR HEMOGLOBIN 29 pg (25-35); MEAN CORPUSCULAR HGB CONC 33 g/dL (31-37); MEAN CORPUSCULAR VOLUME 88 fL (79-100); MONO # 0.4 x10^3/uL (0.0-1.1); MONO % 9 % (0-9); NEUT % 68 % (31-73); PLATELET COUNT 178 x10^3/uL (140-400); POTASSIUM 3.8 mmol/L (3.5-5.1); RED BLOOD COUNT 4.53 x10^6/uL (4.30-5.70); RED CELL DISTRIBUTION WIDTH 14.4 % (11.5-14.5); WHITE BLOOD COUNT 4.4 x10^3/uL (4.0-11.0)
[2020-08-13 10:46] LABS: ALBUMIN 3.6 g/dL (3.4-5.0); ALBUMIN/GLOBULIN RATIO 1.3 (1.0-1.7); TOTAL BILIRUBIN 0.5 mg/dL (0.2-1.0); TOTAL PROTEIN 6.4 g/dL (6.4-8.2)
[2020-08-13 12:37] LABS: BACTERIA,URINE 0 /HPF (0-FEW); BILIRUBIN,URINE NEG (NEG); CLARITY,URINE CLEAR; COLOR,URINE STRAW; GLUCOSE,URINE NEG (NEG); NITRITE,URINE NEG (NEG); RBC,URINE OCC /HPF (0-2); UROBILINOGEN,URINE 0.2 mg/dL (0.2 mg/dL); WBC,URINE 0 /HPF (0-4)
[2020-08-13 12:46] VITALS: BP 117/82
--- NOTE | 2020-08-13 12:47 | EKG ---
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
--- NOTE | 2020-08-13 12:57 | RAD ---
EXAM: CT Head without IV contrast CLINICAL HISTORY: Reason: LEG WEAKNESS,WORSENING SYMTPOMS POST TPA, CONTRAST 3 HRS AGO / Spl. Instruc tions: / History: COMPARISON: CT head 08/13/2020. TECHNIQUE: Routine CT of the head without contrast. PQRS compliance statement - One or more of the following individualized dose reduction techniques wer e utilized for this study: 1. Automated exposure control 2. Adjustment of the mA and/or kV according to patient size 3. Use of iterative reconstruction technique FINDINGS: There is no evidence of hemorrhage, mass or extra-axial fluid collection. [place]-white differentiation is maintained with no evidence of edema. There is no mass effect or shift of the intracranial structures. The ventricles, basilar cisterns and cortical sulci are normal in size and configuration for the south ents stated age. The cerebellum and brainstem are unremarkable. The calvarium demonstrates no evidence of fracture or focal lesion. There is normal aeration of the visualized paranasal sinuses and mastoid air cells. The visualized portions of the orbits are normal. High density within the venous sinus is likely from recent contrast administration. IMPRESSION: No evidence for acute intracranial process. Findings discussed with Dr. Goodman at 08/13/2020 12:54 PM. FOR INTERNAL CODING PURPOSES RESULT CODE: (C) Electronically signed by: Josh White MD (08/13/2020 12:55 PM) [id number]
== END 2020-08-13 13:01 | disposition short-term general hospital (02) ==
LOC: ER 09:35
DX: I63.9 Cerebral infarction, unspecified (principal); R07.89 Other chest pain; R53.1 Weakness; F31.9 Bipolar disorder, unspecified; E78.00 Pure hypercholesterolemia, unspecified; I10 Essential (primary) hypertension; F17.210 Nicotine dependence, cigarettes, uncomplicated; Z88.8 Allergy status to other drugs, medicaments and biological substances
CPT/HCPCS: 36415; 37195; 70450; 70496; 70498; 80053; 81001; 82947; 83690; 84484; 85025; 85610; 93005; 96360; 99291; J2997; Q9967

== ENCOUNTER 2020-08-18 19:30 | Emergency (ER) | payer MEDICARE ==
[~2020-08-18] VITALS: Ht 165.1 cm; Wt 84.1 kg
--- NOTE | 2020-08-18 19:42 | PHYS DOC ---
Past History Past Medical History: Bipolar, High Cholesterol, Hypertension Past Surgical History: Other Additional Past Surgical Histo: L knee surgery x3; anal fissure repair; he morrhoidectomy; TOTAL LEFT KNEE Smoking: Cigarettes Alcohol Use: None Drug Use: None Adult General Chief Complaint Chief Complaint: NEURO SYMPTOMS/DEFICITS HPI HPI Patient is a 55-year-old male presents with left lower arm/forearm pain and tingling. States that this started yesterday and has been intermittent, with no noticeable aggravating or alleviating factors. States he had has not taken anything for the pain. States that when he woke up this morning he was laying on his left side it had some pain, generally in his left forearm with a little tingling. States that over the course of the day it resolved and then came back. States that he came into the emergency department tonight because he was in the hospital last week because they thought he had a stroke. States he did get TPA, and went to [facility] and was worked up for stroke. States he had an MRI and a CAT scan of his vessels and was told that they were clear. States that he was discharged home on aspirin and advised to continue his medications and follow-up with his primary care next week. Denies headache, changes in vision, trouble swallowing, chest pain, shortness of breath, abdominal pain, nausea, vomiting. Denies any other numbness/weakness/tingling. Denies slurred speech, or facial droop. States he is able to walk without issue. States he has been eating and drinking normally. He is making urine and stool normally. Review of Systems Review of Systems Review of systems otherwise unremarkable except noted in HPI Allergies Allergies Allergies Coded Allergies Type Severity Reaction Last Updated Verified risperidone Allergy Severe 08/13/20 No Physical Exam Physical Exam Constitutional: Well developed, well nourished, no acute distress, non-toxic appearance. [] HENT: Normocephalic, atraumatic, oropharynx moist, no oral exudates, nose normal. [] Eyes: PERRLA, EOMI, conjunctiva normal, no discharge. [] Neck: Normal range of motion, no tenderness, Cardiovascular:Heart rate regular rhythm, no murmur [] Lungs & Thorax: Bilateral breath sounds clear to auscultation [] Abdomen: soft, no tenderness, no masses, no pulsatile masses. [] Skin: Warm, dry, no erythema, no rash. [] Back: No tenderness, Extremities: No tenderness, no cyanosis, no clubbing, ROM intact, no edema. [] Neurologic: Alert and oriented X 3, normal motor function, normal sensory function, no focal deficits noted. [] Psychologic: Affect normal, judgement normal, mood normal. [] EKG EKG [] Radiology/Procedures Radiology/Procedures []OMPARISON: 08/13/2020. FINDINGS: There is no intracranial hemorrhage. Madden-white differentiation is preserved. The ventricles are normal in size and position. The visualized paranasal sinuses appear clear. The orbits are unremarkable. The temporal bones are unremarkable. The calvarium reveals no suspicious lesions. IMPRESSION: 1. No acute intracranial findings. MRI is more sensitive for acute ischemia if there is persistent concern. Electronically signed by: Kami Oconnell MD (08/18/2020 8:22 PM) [facility] Impressions: Heart Score Risk Factors: Risk Factors: DM, Current or recent (<one month) smoker, HTN, HLP, family history of CAD, obesity. Risk Scores: Risk Factors: DM, Current or recent (<one month) smoker, HTN, HLP, family history of CAD, obesity. Course & Med Decision Making Course & Med Decision Making Patient is a 55-year-old male that presents with left lower arm pain and numbness Vital signs not concerning. Physical exam noted above. Patient placed on the monitor. Since patient was seen in the emergency department and admitted to the hospital last week and was administered TPA due to concern for stroke, a CT of the head obtained. EKG and troponin obtained. NIH of 0 in the ED Reading over patient's charts a CT of the head, CTA of the head and neck and MRI done showed no acute infarct, hemorrhage, mass or hydrocephalus. CT of the head showed no high-grade large vessel stenosis with normal head and neck CTA. On reassessment patient still with no focal neurologic deficits and repeat NIH still of 0. 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 States he is wants something to help with the pain in his arm. Patient given Percocet while in the ED. Discussed all findings with patient and recommended pain regimen at home. Gave strict return precautions to the emergency department. 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 Patient grateful, verbalized understanding and agreed with plan of discharge. [] Dragon Disclaimer Dragon Disclaimer This electronic medical record was generated, in whole or in part, using a voice recognition dictation system. Departure Departure: Impression: Primary Impression: Pain in left forearm Disposition: 01 DC HOME SELF CARE/HOMELESS Condition: GOOD Referrals: ESTEPHANIA ESPARZA (PCP) Patient Instructions: Peripheral Nerve Problems-Brief, RICE - Routine Care for Injuries, Stroke Prevention, [id number] Additional Instructions: Please read all the attached information. Please begin a pain regimen at home as discussed with your prescription pain medicine, and Tylenol. Please call your primary care physician and drafter castings first thing in the morning to discuss your ED visit and your past hospital visit as recommended and set up a follow-up appointment as soon as possible. Please come back to the emergency department if you have any new or concerning symptoms as discussed. Scripts Oxycodone HCl/Acetaminophen (Percocet 5-325 mg Tablet) 1 Each Tablet 1 TAB PO PRN BID PRN for arm pain MDD 2 Tablet(s) for 5 Days, #10 TAB 0 Refills Prov: KARLIE PEREIRA MD 08/18/20 KARLIE PEREIRA MD Aug 18, 2020 19:42
--- NOTE | 2020-08-18 20:00 | EKG ---
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
[2020-08-18 20:03] VITALS: BP 133/77
--- NOTE | 2020-08-18 20:25 | RAD ---
EXAM: CT HEAD WITHOUT CONTRAST. HISTORY: Numbness, recent cerebrovascular accident with TPA. TECHNIQUE: Computed tomography of the head was performed without intravenous contrast. One or more of the following individualized dose reduction techniques were utilized for this examination: 1. Automated exposure control. 2. Adjustment of the mA and/or kV according to patient size. 3. Use of iterative reconstruction technique. COMPARISON: 08/13/2020. FINDINGS: There is no intracranial hemorrhage. Madden-white differentiation is preserved. The ventricle s are normal in size and position. The visualized paranasal sinuses appear clear. The orbits are unremarkable. The temporal bones are un remarkable. The calvarium reveals no suspicious lesions. IMPRESSION: 1. No acute intracranial findings. MRI is more sensitive for acute ischemia if there is persistent co ncern. Electronically signed by: Kami Oconnell MD (08/18/2020 8:22 PM) [facility]
[2020-08-18] MEDS ORDERED: OXYC-325 PO (21:14)
[2020-08-18] MEDS ORDERED: oxyCODONE/APAP 5/325 1 TAB TABLET PO ONE (21:15)
== END 2020-08-18 21:30 | disposition home or self-care (01) ==
LOC: ER 19:30
DX: M79.632 Pain in left forearm (principal); R20.2 Paresthesia of skin; M79.602 Pain in left arm; E78.00 Pure hypercholesterolemia, unspecified; I10 Essential (primary) hypertension; F31.9 Bipolar disorder, unspecified; F17.210 Nicotine dependence, cigarettes, uncomplicated; Z88.8 Allergy status to other drugs, medicaments and biological substances
CPT/HCPCS: 36415; 70450; 84484; 93005; 99285

== ENCOUNTER → 2020-09-11 | Outpatient (CLI) | payer MEDICARE ==
[2020-08-18 20:03] VITALS: BP 133/77
[~2020-09-11] MED LIST changes: +OXYC-325 PO
--- NOTE | 2020-09-11 09:58 | RAD ---
Exam Date: 09/11/2020 7:49 AM US DPLX CAROTID BILAT Indication: Reason: TIA, HTN, HX OF SMOKING / Spl. Instructions: / History: BILATERAL CAROTID DOPPLER WITH SPECTRAL DOPPLER ANALYSIS: TECHNIQUE: Real-time ultrasound, color Doppler and spectral waveform analysis was performed of the b ilateral cervical portions of the carotid arteries and vertebral arteries. FINDINGS: RIGHT: The right common and internal carotid arteries demonstrated minimal atherosclerotic plaque. No arterial jet phenomenon was seen on color-flow or spectral waveform analysis. The peak systolic velocity in the right internal carotid artery measured 82 cm/sec and the ICA/CCA systolic velocity ra christiano measured 1.4, which are within normal limits. The external carotid artery shows a normal resist kaye arterial waveform. LEFT: The left common and internal carotid arteries demonstrated minimal atherosclerotic plaque. No arterial jet phenomenon was seen on color-flow or spectral waveform analysis. The peak systolic navdeep ocity in the left internal carotid artery measured 98 cm/sec and the ICA/CCA systolic velocity ratio measured 1.1, which are within normal limits. The external carotid artery shows a normal resistive a rterial waveform. Antegrade bilateral vertebral artery flow was noted. IMPRESSION: Mild less than 50% diameter stenosis of both internal carotid arteries which is not hemodynamically s ignificant carotid artery stenosis. Antegrade flow in both vertebral arteries. Electronically signed by: Damion Jaimes MD (09/11/2020 9:56 AM) [id number]
== END ==
LOC: US 07:35
PROVIDERS: ATTEND Physician Assistant
DX: I65.23 Occlusion and stenosis of bilateral carotid arteries (principal); I10 Essential (primary) hypertension; Z87.891 Personal history of nicotine dependence
CPT/HCPCS: 93880

== ENCOUNTER → 2020-11-19 | Outpatient (CLI) | payer MEDICARE ==
[~2020-11-19] MED LIST changes: +IOHEXOL 300 MG/ML 75 ML VIAL. IV ONE
--- NOTE | 2020-11-19 10:05 | RAD ---
CT ABDOMEN+PELVIS WO+W History: Gross hematuria. Comparison: CT abdomen and pelvis 06/15/2019 Technique: CT urogram of the abdomen and pelvis before and after intravenous contrast in the nephrogr aphic and delayed phases. Findings: Kidneys: No hydronephrosis. No nephrolithiasis. Multiple bilateral renal cysts, largest measuring 1 c m on the right and 4.9 cm on the left. Additional subcentimeter bilateral hypodensities are too small to completely characterize but most likely represent simple cysts. Ureters: No hydroureter, no ureterolithiasis. Well-opacified on excretory phase without mass or filli ng defect. Bladder: Relatively decompressed. Right ureterocele measures approximately 1.0 x 0.4 cm. Inferior paul dder wall prostate impression. Numerous irregular strandy mural projections. Lower chest: Lung bases clear. General abdomen: No ascites. No free air. Liver : Normal in size and attenuation. No masses seen. Gallbladder/Biliary Tree: Normal gallbladder. No intrahepatic or extrahepatic biliary ductal dilatati on. Pancreas: Normal. Spleen: Normal in size and attenuation. Adrenal glands: Normal. Gastrointestinal: Mild sigmoid diverticulosis. Lymph nodes: No lymphadenopathy. Vessels: Unremarkable. Pelvic Organs: Mild intravesicular extension of the prostate. Tiny central prostatic calcifications. Soft tissues: Unremarkable. Bones: No acute or aggressive lesions. Impression: 1. Strandy appearance of the bladder wall mucosa which may represent cystitis. 2. Right ureterocele. 3. Mild intravesicular extension of the prostate. 4. No nephrolithiasis. No renal pelvis or ureteral filling defect or mass. 5. Multiple bilateral benign renal cysts. ------ Exposure: One or more of the following individualized dose reduction techniques were utilized for thi s examination: 1. Automated exposure control 2. Adjustment of the mA and/or kV according to patient size 3. Use of iterative reconstruction technique. Electronically signed by: Job Coleman MD (11/19/2020 10:03 AM) [facility]
== END ==
LOC: CT 07:38
PROVIDERS: ATTEND Urology
DX: N28.1 Cyst of kidney, acquired (principal); N28.89 Other specified disorders of kidney and ureter; R31.9 Hematuria, unspecified
CPT/HCPCS: 74178; Q9967

== ENCOUNTER 2021-01-30 17:18 | Observation (INO) | payer MEDICARE ==
[~2021-01-30] VITALS: Ht 165.1 cm; Wt 83.2 kg
[~2021-01-30 17:18] MED LIST changes: -IOHEXOL 300 MG/ML 75 ML VIAL. IV ONE
--- NOTE | 2021-01-30 18:25 | RAD ---
Exam: CT head INDICATION: Weakness TECHNIQUE: Sequential axial images through the head were obtained without the administration of IV co ntrast. Exposure: One or more of the following in the visualized dose reduction techniques were utilized for this examination: 1. Automated exposure control 2. Adjustment of the MA and/or KV according to patient size 3. Use of iterative of reconstructive technique Comparisons: None FINDINGS: No focal parenchymal lesion or hemorrhage is identified. There is no midline shift or sulcal effaceme nt. No acute vascular territory infarction is identified. Madden-white distinction is preserved. The ventricular system is within normal limits without compression hydrocephalus. The basal cisterns are well maintained. The visualized portions of the paranasal sinuses and mastoid air cells are well-pneumatized. No acute fractures. IMPRESSION: No acute intracranial abnormality. FOR INTERNAL CODING PURPOSES Critical result: Findings discussed with ER provider at 01/30/2021 6:22 PM. RESULT CODE: (C) Electronically signed by: Tevin Crespo MD (01/30/2021 6:23 PM) [email or web address]
[2021-01-30] MEDS ORDERED: IOHEXOL 350 MG/ML 100 ML VIAL. IV ONE (18:30)
[2021-01-30 18:31] LABS: BASO % 1 % (0-3); EOS % 1 % (0-3); HEMOGLOBIN 12.5 g/dL (13.0-17.5); LYMPH # 1.3 x10^3/uL (1.0-4.8); LYMPH % 23 % (24-48); MEAN CORPUSCULAR HEMOGLOBIN 30 pg (25-35); MEAN CORPUSCULAR HGB CONC 34 g/dL (31-37); MEAN CORPUSCULAR VOLUME 89 fL (79-100); MONO # 0.5 x10^3/uL (0.0-1.1); MONO % 8 % (0-9); NEUT # 3.9 x10^3uL (1.8-7.7); NEUT % 68 % (31-73); PLATELET COUNT 209 x10^3/uL (140-400); RED BLOOD COUNT 4.15 x10^6/uL (4.30-5.70); RED CELL DISTRIBUTION WIDTH 13.6 % (11.5-14.5); WHITE BLOOD COUNT 5.7 x10^3/uL (4.0-11.0)
--- NOTE | 2021-01-30 18:31 | PHYS DOC ---
Past History Past Medical History: Bipolar, High Cholesterol, Hypertension Past Surgical History: Other Additional Past Surgical Histo: L knee surgery x3; anal fissure repair; he morrhoidectomy; TOTAL LEFT KNEE Smoking: Cigarettes Alcohol Use: None Drug Use: None General Adult EDM: Chief Complaint: CHEST PAIN HPI: HPI: Patient is a 55-year-old male who presents to the ER today for multiple complaints. Patient reports that he started having left-sided chest pain 2 days ago. He rates the pain 10 out of 10, does not radiate anywhere. It is reproducible. Patient is also reporting bilateral arm numbness and left leg numbness that started 1 hour prior to arrival. Patient states that he just feels generally weak. He is also reporting a sharp shooting headache, shortness of breath, and chills. Patient reports that he has a history of a CVA and did receive TPA. Patient also has a history of A. fib. Patient has chronic left eyelid droop. Patient denies abdominal pain, fevers, nausea, vomiting, diarrhea, trauma, alcohol/drugs. Review of Systems: Review of Systems: 14 body systems of the review of systems have been reviewed. See HPI for pertinent positive and negative responses, otherwise all other systems are negative, nonpertinent or noncontributory Current Medications: Current Meds: Current Medications Medications (Trade) Dose Ordered Sig/Antonio Start Time Stop Time Status Last Admin Dose Admin Iohexol (Omnipaque 350 Mg/ml) 100 ml 1X ONCE 01/30/21 18:30 01/30/21 18:31 UNV Allergies: Allergies: Allergies Coded Allergies Type Severity Reaction Last Updated Verified risperidone Allergy Severe 08/13/20 No Physical Exam: PE: Constitutional: Well developed, well nourished, no acute distress, non-toxic appearance. [] HENT: Normocephalic, atraumatic Eyes: PERRLA, EOMI, conjunctiva normal, no discharge, patient has drooping of left eyelid and has difficulty opening lid which is chronic for him. [] Neck: Normal range of motion, no stridor Cardiovascular:Heart rate regular rhythm, no murmur, left chest wall is tender with palpation [] Lungs & Thorax: Bilateral breath sounds clear to auscultation [] Abdomen: Bowel sounds normal, soft, no tenderness, no masses, no pulsatile masses. [] Skin: Warm, dry, no erythema, no rash. [] Back: Normal range of motion Extremities: No tenderness, no cyanosis, no clubbing, no edema. [] Neurologic: Alert and oriented X 3, equal strength bilateral upper extremities, no slurred speech, no ataxia, no arm drift, no effort against gravity with bilateral lower extremity movement Psychologic: Affect normal, judgement normal, mood normal. [] Patient is uncooperative with exam. Patient's physical exam is also contradictory. Patient reports bilateral lower extremity weakness difficulty raising them off the bed but had a normal [id number] test. Current Patient Data: Labs: Laboratory Tests Test 01/30/21 18:09 01/30/21 18:31 White Blood Count 5.7 x10^3/uL Red Blood Count 4.15 x10^6/uL Hemoglobin 12.5 g/dL Hematocrit 37.0 % Mean Corpuscular Volume 89 fL Mean Corpuscular Hemoglobin 30 pg Mean Corpuscular Hemoglobin Concent 34 g/dL Red Cell Distribution Width 13.6 % Platelet Count 209 x10^3/uL Neutrophils (%) (Auto) 68 % Lymphocytes (%) (Auto) 23 % Monocytes (%) (Auto) 8 % Eosinophils (%) (Auto) 1 % Basophils (%) (Auto) 1 % Neutrophils # (Auto) 3.9 x10^3uL Lymphocytes # (Auto) 1.3 x10^3/uL Monocytes # (Auto) 0.5 x10^3/uL Eosinophils # (Auto) 0.0 x10^3/uL Basophils # (Auto) 0.0 x10^3/uL Sodium Level 142 mmol/L Potassium Level 3.7 mmol/L Chloride Level 105 mmol/L Carbon Dioxide Level 27 mmol/L Anion Gap 10 Blood Urea Nitrogen 9 mg/dL Creatinine 1.2 mg/dL Estimated GFR (Cockcroft-Gault) 62.9 BUN/Creatinine Ratio 8 Glucose Level 94 mg/dL Calcium Level 8.4 mg/dL Total Bilirubin 0.5 mg/dL Aspartate Amino Transf (AST/SGOT) 21 U/L Alanine Aminotransferase (ALT/SGPT) 25 U/L Alkaline Phosphatase 87 U/L Troponin I Quantitative < 0.017 ng/mL Total Protein 6.4 g/dL Albumin 4.1 g/dL Albumin/Globulin Ratio 1.8 Glucose (Fingerstick) 91 mg/dL Current Medications Medications (Trade) Dose Ordered Sig/Antonio Route PRN Reason Start Time Stop Time Status Last Admin Dose Admin Iohexol (Omnipaque 350 Mg/ml) 100 ml 1X ONCE IV 01/30/21 18:30 01/30/21 18:31 DC 01/30/21 18:31 Vital Signs: Vital Signs Date Time Temp Pulse Resp B/P (MAP) Pulse Ox O2 Delivery O2 Flow Rate FiO2 01/30/21 17:28 98.6 88 16 140/83 99 Room Air EKG: EKG: EKG performed by ER staff at 1726 shows sinus rhythm, no STEMI as read by Dr. Akhtar at 1730. [] Radiology/Procedures: Radiology/Procedures: PROCEDURE: CT CODE STROKE HEAD WO Exam: CT head INDICATION: Weakness TECHNIQUE: Sequential axial images through the head were obtained without the administration of IV contrast. Exposure: One or more of the following in the visualized dose reduction techniques were utilized for this examination: 1. Automated exposure control 2. Adjustment of the MA and/or KV according to patient size 3. Use of iterative of reconstructive technique Comparisons: None FINDINGS: No focal parenchymal lesion or hemorrhage is identified. There is no midline shift or sulcal effacement. No acute vascular territory infarction is identified. Madden-white distinction is preserved. The ventricular system is within normal limits without compression hydrocephalus. The basal cisterns are well maintained. The visualized portions of the paranasal sinuses and mastoid air cells are well- pneumatized. No acute fractures. IMPRESSION: No acute intracranial abnormality. FOR INTERNAL CODING PURPOSES Critical result: Findings discussed with ER provider at 01/30/2021 6:22 PM. RESULT CODE: (C) PROCEDURE: PORTABLE CHEST 1V AP chest. HISTORY: Chest pain AP view was taken of the chest. Lungs are free of infiltrates. Heart is normal in size. There is no effusion. IMPRESSION: 1. No acute chest disease. Electronically signed by: Young Valdes MD (01/30/2021 6:49 PM) [facility] DICTATED AND SIGNED BY: YOUNG VALDES MD DATE: 01/30/21 1846 CC: ESTEPHANIA ESPARZA PA; LIZ RYAN SENIOR DATA WAREHOUSE DEVELOPER; RONI COX DO ~MTH0 0 Electronically signed by: Tevin Tejeda MD (01/30/2021 6:23 PM) [facility] PROC[facility]: CT ANGIOGRAPHY HEAD AND NECK Exam: CTA head and neck INDICATION: Weakness, right arm numbness TECHNIQUE: Sequential axial images through the head and neck obtained following the administration of 75 mL of Omni 350 IV contrast. Sagittal and coronal reformatted images were reconstructed from the axial data and reviewed. Exposure: One or more of the following in the visualized dose reduction te chniques were utilized for this examination: 1. Automated exposure control 2. Adjustment of the MA and/or KV according to patient size 3. Use of iterative of reconstructive technique Comparisons: CT head without contrast same day FINDINGS: CTA NECK: Visualized portions of thoracic aorta are unremarkable. Standard three-vessel aortic arch anatomy. Right common carotid artery is patent without evidence of stenosis, occlusion or aneurysm. Cervical segment of the right internal carotid artery is patent without evidence of stenosis, occlusion or aneurysm. Left common carotid artery is patent without evidence of stenosis, occlusion or aneurysm. Cervical segment of the left internal carotid artery is patent without evidence stenosis, occlusion or aneurysm. Right vertebral artery is patent to the basilar confluence without evidence of stenosis, occlusion or aneurysm. Left vertebral artery is patent to the basilar confluence without evidence of stenosis, occlusion or aneurysm. Visualized soft tissues are unremarkable. CTA HEAD: Intracranial segments of the right internal carotid artery are patent without evidence of stenosis, occlusion or aneurysm. Right MCA is patent. Right URBANO is patent. Intracranial segments of the left internal carotid artery are patent without evidence of stenosis, occlusion or aneurysm. Left MCA is patent. Left URBANO is patent. Basilar artery is patent without evidence of stenosis, occlusion or aneurysm. pile driving nozzleman are patent bilaterally. Visualized portions of the dural venous sinuses are patent. IMPRESSION: 1. No large vessel occlusion. 2. Patent intracranial and cervical arterial vasculature without evidence of stenosis, occlusion or aneurysm. FOR INTERNAL CODING PURPOSES Critical result: Findings discussed with Shiv at 01/30/2021 6:55 PM. RESULT CODE: (C) Electronically signed by: Tevin Tejeda MD (01/30/2021 7:01 PM) [facility] DICTATED AND SIGNED BY: TEVIN TEJEDA MD DATE: 01/30/211853 CC: ESTEPHANIA ESPARZA; LIZ RYAN APRN; RONI COX DO ~MTH0 0 Heart Score: C/O Chest Pain: Yes HEART Score for Chest Pain: HEART Score for Chest Pain Response (Comments) Value History Moderately Suspicious 1 ECG Normal 0 Age >45 - < 65 1 Risk Factors 1 or 2 Risk Factors 1 Troponin < Normal Limit 0 Total 3 Risk Factors: Risk Factors: DM, Current or recent (<one month) smoker, HTN, HLP, family history of CAD, obesity. Risk Scores: Score 0 - 3: 2.5% MACE over next 6 weeks - Discharge Home Score 4 - 6: 20.3% MACE over next 6 weeks - Admit for Clinical Observation Score 7 - 10: 72.7% MACE over next 6 weeks - Early Invasive Strategies Course & Med Decision Making: Course & Med Decision Making Pertinent Labs and Imaging studies reviewed. (See chart for details) Patient is a 55-year-old male being seen in the ER today for multiple complaints including left-sided chest pain, bilateral arm numbness, bilateral lower extremity weakness, bilateral upper extremity weakness. Patient was code stroke in the ER. Lab work was unremarkable. Chest x-ray and CT scans were unremarkable. Discussed with supervising physician the use of TPA and it was decided to not give patient TPA based off of his symptoms and physical exam findings. Given patient's positive history of a CVA with TPA administration discussed case with supervising physician in the ER as well as Dr. Mcgarry. Dr. Yu agreed to admit patient for observation to telemetry for bilateral lower extremity weakness and chest pain. Care transferred at this time 1922. Shraddha Disclaimer: Shraddha Disclaimer: This electronic medical record was generated, in whole or in part, using a voice recognition dictation system. Departure Departure: Impression: Primary Impression: Lower extremity weakness Qualified Codes: R29.898 - Other symptoms and signs involving the musculoskeletal system Additional Impression: Chest pain Qualified Codes: R07.89 - Other chest pain Disposition: ADMITTED INPATIENT Admitting Physician: Robert Mcgarry Condition: STABLE Referrals: ESTEPHANIA ESPARZA (PCP) LIZ RYAN APRN Jan 30, 2021 18:30
[2021-01-30 18:42] LABS: CALCIUM 8.4 mg/dL (8.5-10.1); CREATININE 1.2 mg/dL (0.7-1.3); GFR 62.9; POTASSIUM 3.7 mmol/L (3.5-5.1)
[2021-01-30 18:48] LABS: ALBUMIN 4.1 g/dL (3.4-5.0); ALBUMIN/GLOBULIN RATIO 1.8 (1.0-1.7); TOTAL BILIRUBIN 0.5 mg/dL (0.2-1.0); TOTAL PROTEIN 6.4 g/dL (6.4-8.2)
--- NOTE | 2021-01-30 18:51 | RAD ---
AP chest. HISTORY: Chest pain AP view was taken of the chest. Lungs are free of infiltrates. Heart is normal in size. There is no e ffusion. IMPRESSION: 1. No acute chest disease. Electronically signed by: Young Valdes MD (01/30/2021 6:49 PM) [facility]
--- NOTE | 2021-01-30 19:03 | RAD ---
Exam: CTA head and neck INDICATION: Weakness, right arm numbness TECHNIQUE: Sequential axial images through the head and neck obtained following the administration of 75 mL of Omni 350 IV contrast. Sagittal and coronal reformatted images were reconstructed from the a xial data and reviewed. Exposure: One or more of the following in the visualized dose reduction techniques were utilized for this examination: 1. Automated exposure control 2. Adjustment of the MA and/or KV according to patient size 3. Use of iterative of reconstructive technique Comparisons: CT head without contrast same day FINDINGS: CTA NECK: Visualized portions of thoracic aorta are unremarkable. Standard three-vessel aortic arch anatomy. Right common carotid artery is patent without evidence of stenosis, occlusion or aneurysm. Cervical s egment of the right internal carotid artery is patent without evidence of stenosis, occlusion or aneu rysm. Left common carotid artery is patent without evidence of stenosis, occlusion or aneurysm. Cervical se gment of the left internal carotid artery is patent without evidence stenosis, occlusion or aneurysm. Right vertebral artery is patent to the basilar confluence without evidence of stenosis, occlusion or aneurysm. Left vertebral artery is patent to the basilar confluence without evidence of stenosis, occlusion or aneurysm. Visualized soft tissues are unremarkable. CTA HEAD: Intracranial segments of the right internal carotid artery are patent without evidence of stenosis, o cclusion or aneurysm. Right MCA is patent. Right URBANO is patent. Intracranial segments of the left internal carotid artery are patent without evidence of stenosis, oc clusion or aneurysm. Left MCA is patent. Left URBANO is patent. Basilar artery is patent without evidence of stenosis, occlusion or aneurysm. film archivist are patent bilater ally. Visualized portions of the dural venous sinuses are patent. IMPRESSION: 1. No large vessel occlusion. 2. Patent intracranial and cervical arterial vasculature without evidence of stenosis, occlusion or aneurysm. FOR INTERNAL CODING PURPOSES Critical result: Findings discussed with Shiv at 01/30/2021 6:55 PM. RESULT CODE: (C) Electronically signed by: Tevin Crespo MD (01/30/2021 7:01 PM) [facility]
[2021-01-30] MEDS ORDERED: ONDANSETRON PF 4 MG/2 ML VIAL. IVP PRN (19:15)
[2021-01-30] MEDS ORDERED: CLOPIDOGREL BISULFATE 75 MG TABLET PO ONE (19:15)
--- NOTE | 2021-01-30 20:40 | NUR ---
The patient, ALESIA DOBBS, 55 y/o, M admitted by SHAWNEE JOHNSON MD, was given written information regarding hospital policies, unit procedures and contact persons. Valuables were checked and VITALS OBTAINED. PT IS A&OX4 ABLE TO EXPRESS OWN CONCERNS ON ROOM AIR. PT REQUESTED TO USE URINAL TONIGHT DUE TO WEAKNESS IN BLE. PT IS IN BED AT THIS TIME. WILL CONTINUE TO MONITOR.
[2021-01-30 20:42] VITALS: BP 116/71
[2021-01-30 23:32] VITALS: BP 103/62
[2021-01-31] MEDS ORDERED: LAMO150T3 PO (00:18)
[2021-01-31] MEDS ORDERED: HYDR25TA PO (00:18)
[2021-01-31] MEDS ORDERED: ASCO500C PO (00:18)
[2021-01-31] MEDS ORDERED: ATOR40TA59 PO (00:18)
[2021-01-31] MEDS ORDERED: SERT100T PO (00:18)
[2021-01-31] MEDS ORDERED: OLME20TA17 PO (00:18)
[2021-01-31] MEDS ORDERED: ASPI-171 PO (00:18)
[2021-01-31 05:54] VITALS: BP 96/57
[2021-01-31 06:10] LABS: BASO # 0.1 x10^3/uL (0.0-0.2); BASO % 1 % (0-3); EOS # 0.1 x10^3/uL (0.0-0.7); EOS % 2 % (0-3); HEMATOCRIT 36.1 % (39.0-53.0); HEMOGLOBIN 12.1 g/dL (13.0-17.5); LYMPH # 1.6 x10^3/uL (1.0-4.8); LYMPH % 29 % (24-48); MEAN CORPUSCULAR HEMOGLOBIN 30 pg (25-35); MEAN CORPUSCULAR HGB CONC 33 g/dL (31-37); MEAN CORPUSCULAR VOLUME 91 fL (79-100); MONO # 0.5 x10^3/uL (0.0-1.1); MONO % 10 % (0-9); NEUT # 3.1 x10^3uL (1.8-7.7); NEUT % 58 % (31-73); PLATELET COUNT 194 x10^3/uL (140-400); RED BLOOD COUNT 3.99 x10^6/uL (4.30-5.70); RED CELL DISTRIBUTION WIDTH 13.6 % (11.5-14.5); WHITE BLOOD COUNT 5.4 x10^3/uL (4.0-11.0)
[2021-01-31 06:23] LABS: ALBUMIN 3.5 g/dL (3.4-5.0); ALBUMIN/GLOBULIN RATIO 1.3 (1.0-1.7); CALCIUM 8.4 mg/dL (8.5-10.1); CREATININE 1.3 mg/dL (0.7-1.3); GFR 57.3; TOTAL BILIRUBIN 0.3 mg/dL (0.2-1.0); TOTAL PROTEIN 6.1 g/dL (6.4-8.2)
--- NOTE | 2021-01-31 09:41 | HP ---
ADMIT DATE: 01/30/2021 ATTENDING PHYSICIAN: Dr. Mcgarry. CHIEF COMPLAINT: Multiple complaints including chest pain, numbness, weakness, anxiety and hyperventilation syndrome. He has bipolar disorder. He also says states he has limited memory. He had a negative workup in the ED. He was admitted for further evaluation and monitoring. He has a chronic eyelid droop and atypical chest pain, noncardiac in nature. He is a smoker. He also drinks caffeine and takes ibuprofen intermittently. PAST MEDICAL HISTORY: Significant for bipolar disorder. Supposedly, he had a stroke resulting in TPA. Exact reaction and time is unclear. He has had hemorrhoidectomy, left knee surgery, hypertension, hyperlipidemia. CURRENT MEDICATIONS: Reviewed. He was on scheduled ascorbic acid, Lipitor, hydroxyzine, Lamictal, Benicar, oxycodone and Zoloft. SOCIAL HISTORY: He is a smoker. No drinking history. FAMILY HISTORY: Unobtainable. REVIEW OF SYSTEMS: Unobtainable due to the patient's confusion. PHYSICAL EXAMINATION: GENERAL: When I saw him, this is a fairly unpleasant gentleman who was argumentative. INITIAL VITAL SIGNS: Showed a blood pressure of 116/71, pulse is regular. He is afebrile. Oxygen saturation 97% on room air. HEENT: Head is without trauma. Pupils are reactive. Sclerae nonicteric. Oropharynx is clear. NECK: Supple. No bruits identified. LUNGS: Clear. CARDIOVASCULAR: Regular heart tones. No gallops. ABDOMEN: Soft. EXTREMITIES: Without edema. NEUROLOGIC: Focally intact. Limited to comprehension. LABORATORY DATA: Hemoglobin 12.5 g. Electrolytes within normal range. Cardiac enzymes negative for coronary ischemia. IMAGING STUDIES: He had a head and neck CTA, which was nondiagnostic. Chest x-ray showed no acute process. CT of the head showed no acute pathology. ASSESSMENT: 1. A 55-year-old gentleman with hyperventilation syndrome. 2. Vague nonspecific complaint. 3. Atypical chest pain, coronary ischemia ruled out. 4. History of old stroke. Current stroke workup negative. 5. Continued tobacco addiction. 6. Bipolar disorder. PLAN: 1. Observation status. 2. Continue home meds. 3. I tried to reassure him, I am not sure he is accepting, he was very angry and did not accept the answers I had for him. CECILIO/KARIE DR: Audra TID: [id number]
--- NOTE | 2021-01-31 09:58 | NUR ---
Discharge note Pt discharged at 0958 via ambulation accompanied by friend. pt given written and verbal instructions for discharged with verbal statement of understanding received.
--- NOTE | 2021-01-31 14:51 | DS ---
DATE OF DISCHARGE: 01/31/2021 ATTENDING PHYSICIAN: Dr. Mcgarry. FINAL DISCHARGE DIAGNOSES: 1. Atypical chest pain, coronary ischemia ruled out. 2. Gastroesophageal reflux disease. 3. Bipolar disorder. 4. Hyperventilation. 5. Old cerebrovascular accident. 6. Degenerative arthritis. HISTORY AND PHYSICAL: The patient is a 55-year-old gentleman with a definite psychiatric issues. He presented with hyperventilation syndrome, vague nonspecific complaints. He also had chest pain, chronic in nature. He is a smoker. PHYSICAL EXAMINATION: Please see the dictated note. PERTINENT LABORATORY AND X-RAY STUDIES: CBC, chemistry panel unremarkable. Cardiac enzymes negative for coronary ischemia. CT of the head showed no acute stroke. Chest, CT of the neck was all unremarkable. COURSE IN HOSPITAL: The patient was admitted for observation. I tried to explain to him symptoms are related to hyperventilation syndrome. He has very minimal concept. He has developmental delay and has trouble comprehending. On the second hospital day, his vital signs were stable. He got angry in the part of the discussion, he wanted to go home. No changes on his home meds. include ascorbic acid, aspirin, Lipitor, hydroxyzine, Lamictal, Benicar, oxycodone p.r.n., Zoloft. He will follow up with his PCP, Darien Trevizo, as scheduled. He was discharged from our hospital in stable condition with explicit drug and followup care. MINA DR: Audra TID: [id number] CC: HAILEY ELAINE
--- NOTE | 2021-02-03 13:05 | EKG ---
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
== END 2021-01-31 10:11 | disposition home or self-care (01) ==
LOC: ER 17:18 → 1 SOUTH 19:29 → INTOOBSV 19:29
PROVIDERS: ADMIT Hospitalist; ATTEND Hospitalist
DX: R07.89 Other chest pain (principal); I48.91 Unspecified atrial fibrillation; H02.402 Unspecified ptosis of left eyelid; R06.4 Hyperventilation; I10 Essential (primary) hypertension; K21.9 Gastro-esophageal reflux disease without esophagitis; F31.9 Bipolar disorder, unspecified; E78.5 Hyperlipidemia, unspecified; E78.00 Pure hypercholesterolemia, unspecified; F41.9 Anxiety disorder, unspecified; M19.90 Unspecified osteoarthritis, unspecified site; R53.1 Weakness; R29.898 Other symptoms and signs involving the musculoskeletal system; F17.200 Nicotine dependence, unspecified, uncomplicated; Z98.890 Other specified postprocedural states; Z86.73 Personal history of transient ischemic attack (TIA), and cerebral infarction without residual deficits
CPT/HCPCS: 36415; 70450; 70496; 70498; 71045; 80053; 82947; 84484; 85025; 93005; 96374; 96376; 99285; G0378; J3010; Q9967; G0379

== ENCOUNTER 2021-05-15 16:59 | Observation (INO) | payer MEDICARE ==
[~2021-05-15] VITALS: Ht 165.1 cm; Wt 80.2 kg
[~2021-05-15 16:59] MED LIST changes: +ASCO500C PO; +ASPI-171 PO; +ATOR40TA59 PO; +DICY20TA PO; -DICY20TA3 PO; -DULO60CA6 PO; +DULO60CA7 PO; +LAMO150T3 PO
[2021-05-15 17:37] LABS: BASO % 1 % (0-3); EOS # 0.1 x10^3/uL (0.0-0.7); EOS % 2 % (0-3); HEMATOCRIT 39.9 % (39.0-53.0); HEMOGLOBIN 13.5 g/dL (13.0-17.5); LYMPH # 1.3 x10^3/uL (1.0-4.8); LYMPH % 21 % (24-48); MEAN CORPUSCULAR HEMOGLOBIN 31 pg (25-35); MEAN CORPUSCULAR HGB CONC 34 g/dL (31-37); MEAN CORPUSCULAR VOLUME 91 fL (79-100); MONO # 0.5 x10^3/uL (0.0-1.1); MONO % 8 % (0-9); NEUT % 68 % (31-73); PLATELET COUNT 170 x10^3/uL (140-400); RED CELL DISTRIBUTION WIDTH 13.5 % (11.5-14.5); WHITE BLOOD COUNT 5.9 x10^3/uL (4.0-11.0)
--- NOTE | 2021-05-15 17:38 | RAD ---
Exam: CT head INDICATION: Possible stroke, left-sided numbness, chest pain TECHNIQUE: Sequential axial images through the head were obtained without the administration of IV co ntrast. Exposure: One or more of the following in the visualized dose reduction techniques were utilized for this examination: 1. Automated exposure control 2. Adjustment of the MA and/or KV according to patient size 3. Use of iterative of reconstructive technique Comparisons: 01/30/2021 FINDINGS: No focal parenchymal lesion or hemorrhage is identified. There is no midline shift or sulcal effaceme nt. No acute vascular territory infarction is identified. Madden-white distinction is preserved. The ventricular system is within normal limits without compression hydrocephalus. The basal cisterns are well maintained. The visualized portions of the paranasal sinuses and mastoid air cells are well-pneumatized. No acute fractures. IMPRESSION: No acute intracranial abnormality. FOR INTERNAL CODING PURPOSES Critical result: Findings discussed with Elena ER provider at 05/15/2021 5:30 PM. RESULT CODE: (C) Electronically signed by: Tevin Crespo MD (05/15/2021 5:35 PM) [facility]
[2021-05-15 17:49] LABS: ALBUMIN 3.9 g/dL (3.4-5.0); ALBUMIN/GLOBULIN RATIO 1.6 (1.0-1.7); CALCIUM 9.3 mg/dL (8.5-10.1); GFR 77.6; POTASSIUM 3.8 mmol/L (3.5-5.1); TOTAL BILIRUBIN 0.3 mg/dL (0.2-1.0); TOTAL PROTEIN 6.4 g/dL (6.4-8.2)
[2021-05-15] MEDS ORDERED: MORPHINE SULFATE 2 MG/ML DISP.SYRIN. IV ONE (18:15)
--- NOTE | 2021-05-15 18:53 | PHYS DOC ---
Past History Past Medical History: Bipolar, High Cholesterol, Hypertension (LAILA CABALLERO) Past Surgical History: Other Additional Past Surgical Histo: loop recorder; anal fissure repair; hemorrhoidectomy; TOTAL LEFT KNEE (LAILA CABALLERO) Smoking: Cigarettes Alcohol Use: None Drug Use: None (LAILA CABALLERO) General Adult EDM: Chief Complaint: CHEST PAIN HPI: HPI: Patient is a 55 year old male with history of residual left-sided weakness from prior CVA who presents with worsening left-sided weakness and left-sided chest pain. Patient describes his pain as "intense pressure" that is sometimes sharp in nature. Patient states he has had pain in his left side chest for 3 days. 1 hour prior to arrival, he noticed worsening left upper extremity and left lower extremity weakness. Patient states that his current symptoms feel similar to his prior CVA. Patient reports increased stress at home. 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 (LAILA CABALLERO) Review of Systems: Review of Systems: Constitutional: Denies fever or chills Eyes: Denies change in visual acuity HENT: Denies nasal congestion or sore throat Respiratory: Denies cough or shortness of breath Cardiovascular: See HPI GI: Denies abdominal pain, nausea, vomiting, bloody stools or diarrhea : Denies dysuria Musculoskeletal: Denies back pain or joint pain Integument: Denies rash Neurologic: See HPI (LAILA CABALLERO) Current Medications: Current Meds: Current Medications Medications (Trade) Dose Ordered Sig/Antonio Start Time Stop Time Status Last Admin Dose Admin Morphine Sulfate (Morphine 2mg Syringe) 2 mg 1X ONCE 05/15/21 18:15 05/15/21 18:16 DC 05/15/21 18:25 2 MG (LAILA CABALLERO) Allergies: Allergies: Allergies Coded Allergies Type Severity Reaction Last Updated Verified risperidone Allergy Severe 08/13/20 No (LAILA CABALLERO) Physical Exam: PE: Constitutional: Well developed, well nourished, no acute distress, non-toxic appearance. HENT: Normocephalic, atraumatic, bilateral external ears normal, oropharynx moist, no oral exudates, nose normal. Cranial nerves grossly intact. Eyes: PERRLA, EOMI, conjunctiva normal, no discharge. Cardiovascular: Heart rate regular rhythm, no murmur. Lungs & Thorax: Bilateral breath sounds clear to auscultation. Extremities: No tenderness, no cyanosis, no clubbing, ROM intact, no edema. Neurologic: Alert and oriented x3, left upper extremity strength 4/5, right upper extremity strength 5/5, left lower extremity strength 3/5, right lower extremity strength 5/5. Psychologic: Affect concerned, good judgment, mood "stressed." (LAILA CABALLERO) Current Patient Data: Labs: Laboratory Tests Test 05/15/21 17:22 White Blood Count 5.9 x10^3/uL (4.0-11.0) Red Blood Count 4.40 x10^6/uL (4.30-5.70) Hemoglobin 13.5 g/dL (13.0-17.5) Hematocrit 39.9 % (39.0-53.0) Mean Corpuscular Volume 91 fL (79-100) Mean Corpuscular Hemoglobin 31 pg (25-35) Mean Corpuscular Hemoglobin Concent 34 g/dL (31-37) Red Cell Distribution Width 13.5 % (11.5-14.5) Platelet Count 170 x10^3/uL (140-400) Neutrophils (%) (Auto) 68 % (31-73) Lymphocytes (%) (Auto) 21 % (24-48) L Monocytes (%) (Auto) 8 % (0-9) Eosinophils (%) (Auto) 2 % (0-3) Basophils (%) (Auto) 1 % (0-3) Neutrophils # (Auto) 4.0 x10^3uL (1.8-7.7) Lymphocytes # (Auto) 1.3 x10^3/uL (1.0-4.8) Monocytes # (Auto) 0.5 x10^3/uL (0.0-1.1) Eosinophils # (Auto) 0.1 x10^3/uL (0.0-0.7) Basophils # (Auto) 0.0 x10^3/uL (0.0-0.2) Prothrombin Time 9.9 SEC (9.4-11.4) Prothrombin Time INR 1.0 (0.9-1.1) Activated Partial Thromboplast Time 23 SEC (23-33) Sodium Level 138 mmol/L (136-145) Potassium Level 3.8 mmol/L (3.5-5.1) Chloride Level 104 mmol/L (98-107) Carbon Dioxide Level 30 mmol/L (21-32) Anion Gap 4 (6-14) L Blood Urea Nitrogen 12 mg/dL (8-26) Creatinine 1.0 mg/dL (0.7-1.3) Estimated GFR (Cockcroft-Gault) 77.6 BUN/Creatinine Ratio 12 (6-20) Glucose Level 110 mg/dL (70-99) H Calcium Level 9.3 mg/dL (8.5-10.1) Total Bilirubin 0.3 mg/dL (0.2-1.0) Aspartate Amino Transferase (AST) 30 U/L (15-37) Alanine Aminotransferase (ALT) 54 U/L (16-63) Alkaline Phosphatase 102 U/L (46-116) Troponin I High Sensitivity 5 ng/L (4-75) Total Protein 6.4 g/dL (6.4-8.2) Albumin 3.9 g/dL (3.4-5.0) Albumin/Globulin Ratio 1.6 (1.0-1.7) Vital Signs: Vital Signs Date Time Temp Pulse Resp B/P (MAP) Pulse Ox O2 Delivery O2 Flow Rate FiO2 05/15/21 18:25 99 05/15/21 18:20 77 16 129/72 (91) Room Air 05/15/21 17:05 98.6 (LAILA CABALLERO) EKG: EKG: EKG Interpreted by Dr. Montalvo: Regular rate and rhythm 86 bpm with no ectopic beats. No concerning ST-T wave changes. Regular QR interval. (LAILA CABALLERO) Radiology/Procedures: Radiology/Procedures: PROCEDURE: CT CODE STROKE HEAD WO Exam: CT head INDICATION: Possible stroke, left-sided numbness, chest pain TECHNIQUE: Sequential axial images through the head were obtained without the administration of IV contrast. Exposure: One or more of the following in the visualized dose reduction techniques were utilized for this examination: 1. Automated exposure control 2. Adjustment of the MA and/or KV according to patient size 3. Use of iterative of reconstructive technique Comparisons: 01/30/2021 FINDINGS: No focal parenchymal lesion or hemorrhage is identified. There is no midline shift or sulcal effacement. No acute vascular territory infarction is identified. Madden-white distinction is preserved. The ventricular system is within normal limits without compression hydrocephalus. The basal cisterns are well maintained. The visualized portions of the paranasal sinuses and mastoid air cells are well- pneumatized. No acute fractures. IMPRESSION: No acute intracranial abnormality. FOR INTERNAL CODING PURPOSES Critical result: Findings discussed with Elena ER provider at 05/15/2021 5:30 PM. RESULT CODE: (C) Electronically signed by: Tevin Crespo MD (05/15/2021 5:35 PM) LAMBERTO (LAILA CABALLERO) Heart Score: C/O Chest Pain: Yes HEART Score for Chest Pain: HEART Score for Chest Pain Response (Comments) Value History Slighlty/Non-Suspicious 0 ECG Normal 0 Age >45 - < 65 1 Risk Factors 1 or 2 Risk Factors 1 Troponin < Normal Limit 0 Total 2 Risk Factors: Hypertension, high cholesterol Risk Scores: Heart score 2 (LAILA CABALLERO) Course & Med Decision Making: Course & Med Decision Making Pertinent Labs and Imaging studies reviewed. (See chart for details) Patient is heart score is 2, and EKG is not concerning for STEMI. Patient reports increased left-sided weakness. On initial exam, left-sided weakness was noted however has improved. At this time, he has no indication for thrombolytic therapy, however he feels that he is unable to go home to care for himself safely. Patient will be admitted for observation overnight to ensure no new events or worsening symptoms. Dr. Ivy is accepting physician. (LAILA CABALLERO) Dragon Disclaimer: [place] Disclaimer: This electronic medical record was generated, in whole or in part, using a voice recognition dictation system. (LAILA CABALLERO) Attending Co-Sign The patient was seen and interviewed as well as examined at the bedside. The chart was reviewed. The case was discussed. Agree with the plan of care. (LEENA FINCH DO) Departure Departure: Impression: Primary Impression: Left-sided chest pain Additional Impression: History of CVA with residual deficit Disposition: ADMITTED INPATIENT Admitting Physician: Opal Ivy (LAILA CABALLERO) Condition: GUARDED Referrals: ESTEPHANIA ESPARZA (PCP) LAILA CABALLERO May 15, 2021 18:53 LEENA FINCH DO May 16, 2021 20:55
--- NOTE | 2021-05-15 18:57 | EKG ---
[address] [address] Test Date: 2021-05-15 Test Time: 17:03:21 Pat Name: ALESIA DOBBS Department: Room: Gender: M [employer] T[employer] Helper: LARA : 1965 Requested By: LAILA CABALLERO Order Number: [id number] Reading MD: Gideon Cross MD Measurements Intervals [place] Rate: 86 P: 55 IA: 136 QRS: 41 QRSD: 100 T: 44 QT: 360 QTc: 434 Interpretive Statements SINUS RHYTHM Electronically Signed On 05-16-2021 12:59:41 CDT by Gideon Cross MD
[2021-05-15 21:13] VITALS: BP 117/77
[2021-05-15] MEDS ORDERED: MORPHINE SULFATE 2 MG/ML DISP.SYRIN. IV PRN (21:45)
[2021-05-15] MEDS ORDERED: lamoTRIgine 100 MG TABLET. PO SCH (22:30)
[2021-05-15] MEDS ORDERED: ATORVASTATIN CALCIUM 20 MG TABLET PO SCH (22:30)
[2021-05-15] MEDS ORDERED: hydrOXYzine HCL 25 MG TABLET PO SCH (22:30)
[2021-05-16 06:00] VITALS: BP 109/69
[2021-05-16 06:29] LABS: HEMATOCRIT 38.7 % (39.0-53.0); HEMOGLOBIN 12.8 g/dL (13.0-17.5); RED BLOOD COUNT 4.21 x10^6/uL (4.30-5.70); RED CELL DISTRIBUTION WIDTH 13.6 % (11.5-14.5); WHITE BLOOD COUNT 4.5 x10^3/uL (4.0-11.0)
[2021-05-16 06:39] LABS: CALCIUM 8.5 mg/dL (8.5-10.1); GFR 77.6; POTASSIUM 3.5 mmol/L (3.5-5.1)
[2021-05-16] MEDS ORDERED: LOSARTAN 50 MG TABLET. PO SCH (09:00)
[2021-05-16] MEDS ORDERED: ASCORBIC ACID 500 MG TABLET PO SCH (09:00)
[2021-05-16] MEDS ORDERED: ASPIRIN ENTERIC COATED 81 MG TABLET.DR. PO SCH (09:00)
[2021-05-16] MEDS ORDERED: SERTRALINE 100 MG TABLET. PO SCH (09:00)
[2021-05-16 11:02] VITALS: BP 117/74
--- NOTE | 2021-05-16 14:26 | CONS ---
NEUROLOGY CONSULT REFERRING PHYSICIAN: Dr. Ivy. REASON FOR CONSULTATION: Rule out TIA versus stroke. HISTORY OF PRESENT ILLNESS: This is a 55-year-old right-handed male was admitted through Emergency Room after he presented with chief complaints of one - progressive weakness of the left upper and lower extremities associated with left-sided chest pain. The patient stated he has been under extreme stress for the last 2 weeks after his landlord . He stated his chest pain has been intensified in the last few days, but the pain is not radiating to the shoulders. He also complains of numbness and paresthesia of the left upper extremity. He denies nausea or vomiting, diaphoresis, shortness of breath or palpitation, dysarthria or dysphagia. Initial nonenhanced head CT scan revealed no evidence of acute intracranial process. The patient denies headaches, vertigo. PAST MEDICAL HISTORY: Positive for stroke, diagnosed in 08/2020 resulted in left-sided weakness recovered by physical therapy. History of hypertension, hyperlipidemia, bipolar disorders, depression, anxiety, hearing loss, obstructive sleep apnea, requires CPAP, but he is not compliant with, hemorrhoids. PAST SURGICAL HISTORY: Positive for a total left knee replacement, cataract surgery, right, [employer] loop recorder placed in 09/2020, rectal surgery for anal fissure repair. SOCIAL HISTORY: The patient is single. He is disabled. He is a smoker. He denies alcohol drinking or illicit drug use. CURRENT MEDICATIONS: Losartan 100 mg daily, vitamin C 1000 mg daily, sertraline 200 mg daily, aspirin 81 mg daily, Lipitor 40 mg at bedtime, Lamictal 150 mg at bedtime, hydroxyzine 25 mg at bedtime, Lorazepam 0.5 mg p.r.n. for anxiety. ALLERGIES: RISPERIDONE. PHYSICAL EXAMINATION: GENERAL: Well-developed, well-nourished male in no acute distress. He is 80.2 kilos. VITAL SIGNS: Blood pressure 109/69, respiratory rate 18, pulse is 61 and regular, temperature 97.9, oxygen saturation is 96% on room air. HEENT: Normocephalic, atraumatic, otherwise unremarkable. NECK: Supple, negative for carotid bruit, lymphadenopathy or thyromegaly. LUNGS: Clear to A and P. CARDIAC: Regular rate and rhythm, normal S1, S2. There is no S3, S4 or murmur. ABDOMEN: Soft. Bowel sounds positive. EXTREMITIES: Negative for cyanosis, clubbing or pedal edema. NEUROLOGIC: Mental status: The patient is alert and oriented x 3. Speech is fluent. There is no language dysfunction. Memory, judgment and abstracting thinking are normal. The patient denies hallucination or delusion. Cranial nerves: Visual suarez are full. The pupils are reactive to light and accommodation. Extraocular movements are intact. There is no nystagmus. There is no facial motor or sensory deficits. Hearing is slightly diminished. The palate is elevated symmetrically. Sternocleidomastoid muscles are powerful bilaterally. The patient shrugs his shoulders symmetrically, protrudes his tongue in the midline without fasciculation or atrophy. Motor Examination: No focal muscle bulk wasting. The tone is normal. The strength is 4/5 in the left lower extremity because of a knee surgery, but the strength all over is 5/5 throughout. Sensory examination revealed normal pinprick, light touch, vibratory and position senses. Deep tendon reflexes were symmetric and active without pathology responses. Gait and coordination are normal. LABORATORY DATA: CBC revealed blood cells of 4.5 thousand, hemoglobin 12.8, hematocrit 38.7, platelet count 162,000. Chemistry revealed sodium of 139, potassium 3.5, chloride 105, CO2 of 26, BUN 12, creatinine 1, glucose 95, calcium 8.5. Coagulation is normal. Rapid COVID test is negative. EKG revealed normal sinus rhythm. No acute changes. IMPRESSION: 1. History of stroke diagnosed in 08/2020 resulted in a left hemiparesis - recovered, presented with exacerbation of left-sided weakness with normal neurological examination and no evidence of acute stroke or transient ischemic attack at this time. His symptoms probably aggravated by underlying stress as the patient has multiple psychiatric problems as described above along with of his landlord who was a caregiver to him. 2. History of stroke as described above with complete recovery. 3. Multiple medical problems include hypertension, hyperlipidemia, depressions, anxiety and bipolar disorders. RECOMMENDATIONS: Continue with current management initiated by Dr. Ivy and continue with current home medications. The patient is neurologically stable. JOYCE/JANETTE DR: Andrea TID: [id number]
[2021-05-16 15:05] VITALS: BP 121/72
--- NOTE | 2021-05-16 17:34 | SSS ---
DATE OF SERVICE: 05/16/2021 ADMIT DATE: 05/15/2021 HISTORY OF PRESENT ILLNESS: The patient is a 55-year-old male patient who presented to the Emergency Room with a complaint of chest pain and also left-sided tingling and numbness of his left upper extremity. He described his pain as intense pressure that is sometimes sharp in nature. He states that he had pain in his left side chest for 3 days. One hour prior to arrival, he noticed a worsening left upper extremity and left lower extremity weakness. He stated that his current symptoms feel similar to his prior CVA. 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 The patient was extensively investigated in the Emergency Room, has had lab work and imaging studies. His lab works were all unremarkable and had had also imaging studies. His CT scan of the head showed no focal parenchymal lesion or hemorrhage identified. There is no midline shift or sulcal effacement. No acute vascular territory infarction identified, jarrell white distinction is preserved. The ventricular system is within normal limits without compression in hydrocephalus. The basal cisterns are well maintained. The visualized portions of the paranasal sinuses and mastoid air cells are well pneumatized. There is no acute fracture. The patient was admitted and had had 3 sets of cardiac enzymes and was seen by the neurologist. All the 3 sets of cardiac enzymes showed troponin I high sensitivity to be 5, within normal range of 4-75. He was seen also in consultation by the neurologist, who basically did not recommend any further investigation and that he is neurologically stable. PAST MEDICAL HISTORY: Significant for right middle cerebral artery territory infarct with left-sided hemiparesis, hypertension, hyperlipidemia. PAST SURGICAL HISTORY: Significant for left total knee arthroplasty, colonoscopy, multiple arthroscopic surgeries of left knee, anal fissure, and hemorrhoidectomy. ALLERGIES: HE IS ALLERGIC TO RISPERIDONE. MEDICATIONS: He is currently on the following medications: Losartan potassium 100 mg once a day, ascorbic acid 1000 mg once a day, sertraline 200 mg daily, aspirin 81 mg once a day, atorvastatin 40 mg at bedtime, lamotrigine 150 mg at bedtime, hydroxyzine 25 mg at bedtime, lorazepam 0.5 mg every 4 hours and morphine sulfate 2 mg IV every 4 hours. FAMILY HISTORY: Has 2 brothers and 5 sisters, all seemingly healthy. His father in his 70s because of COPD and lung cancer. Mother in her 80s. SOCIAL HISTORY: , has 1 daughter. He continues to smoke a pack and a half daily. He does not drink alcohol or use recreational drugs. He is currently on disability secondary to his bipolar disorder. PHYSICAL EXAMINATION: GENERAL: On arrival to the Emergency Room, he looked well and was clearly in no apparent respiratory distress. No pallor, jaundice, cyanosis or thyromegaly. No jugular venous distention. No limb edema. VITAL SIGNS: His heart rate was 87, blood pressure was 151/89, temperature was 98.6, respiratory rate was 18, and oxygen saturation was 99%. HEAD, EYES, EARS, NOSE, AND THROAT: Normocephalic, atraumatic. NECK: Supple. HEART: Showed normal first and second heart sound. No gallop, rub or murmur. CHEST: Clear to auscultation, no crepitation or rhonchi. ABDOMEN: Slightly distended, soft, nontender. NEUROLOGIC: He was alert, oriented x 3. Has left upper extremity strength of 4/5, right upper extremity strength was 5/5, lower extremity strength was 3/5, and right lower extremity strength was 5/5. PSYCHOLOGICAL: His affect, judgment, and mood were all normal. LABORATORY DATA: On arrival showed a white cell count of 5900, hemoglobin 13.5, hematocrit 39, MCV 91, and platelet count of 170,000. His prothrombin time, INR, and APTT are normal. Serum sodium was 138, potassium 3.8, chloride 104, bicarbonate 30, anion gap of 4, BUN 12, creatinine 1, estimated GFR was 77 mL per minute, his glucose 110, calcium was 9.3. Total bilirubin, AST, ALT, alkaline phosphatase were normal. Total protein was 6.4, albumin was 3.9. He did have 3 sets of cardiac enzymes, all showed troponin to be a 5. His coronavirus by PCR was not detectable. ASSESSMENT AND PLAN: He was evaluated by the neurologist as well as physical and occupational therapy. The patient was able to ambulate without any assistance or assistive devices. He has no further episode of chest pain. No tingling or numbness of the left upper extremity and a decision was made to discharge him home. Follow up with his primary care physician. He was seen by the Cardiology team. Reviewing his medical record and a decision will be made to discharge him home on anticoagulation if that deemed necessary. THEE DR: Ab TID: [id number]
--- NOTE | 2021-05-16 19:56 | PDOC2 ---
CARDIAC CONSULT DATE OF CONSULT DOS: DATE: 05/16/21 TIME: 19:46 REASON FOR CONSULT Reason for Consult Possible Stroke, Chest pain REFERRING PHYSICIAN Referring Physician Dr. Ivy SOURCE Source: Chart review, Patient HPI History of Present Illness Mr. Munoz is a pleasant 55 y.o male well known to our service who presents to the hospital for concern for stroke. He was admitted several months ago with stroke/TIA type symptoms. He had a normal echo and underwent loop recorder implantation. He states that he had similar symptoms last night of left arm numbness and discomfort. He reports mild chest pain that appears to be non- anginal in nature. No syncope, palpitations, orthopnea, PND or LE edema. No EKG changes or lab abnormalities. He has had prior stress testing. PAST MEDICAL HISTORY Past Medical History CVA HTN DLP PAST SURGICAL HISTORY Past Surgical History Loop recorder placement. FAMILY HISTORY Family History Non-contributory SOCIAL HISTORY Social History No alcohol, tob or illicit drug use. CURRENT MEDICATIONS Current Medications Current Medications Morphine Sulfate (Morphine 2mg Syringe) 2 mg 1X ONCE IV Last administered on 05/15/21at 18:25; Start 05/15/21 at 18:15; Stop 05/15/21 at 18:16; Status DC Lorazepam (Ativan Inj) 1 mg 1X ONCE IVP Last administered on 05/15/21at 20:19; Start 05/15/21 at 20:15; Stop 05/15/21 at 20:16; Status DC Morphine Sulfate (Morphine 2mg Syringe) 2 mg PRN Q4HRS PRN IV PAIN Last administered on 05/16/21at 06:22; Start 05/15/21 at 21:45; Stop 05/16/21 at 16:58; Status DC Lorazepam (Ativan Inj) 0.5 mg PRN Q4HRS PRN IVP ANXIETY / AGITATION; Start 05/15/21 at 21:45; Stop 05/16/21 at 16:58; Status DC Aspirin (Aspirin Enteric Coated) 81 mg DAILY PO Last administered on 05/16/21at 08:28; Start 05/16/21 at 09:00; Stop 05/16/21 at 16:58; Status DC Sertraline HCl (Zoloft) 200 mg DAILY PO Last administered on 05/16/21at 08:28; Start 05/16/21 at 09:00; Stop 05/16/21 at 16:58; Status DC Ascorbic Acid (Vitamin C) 1,000 mg DAILY PO Last administered on 05/16/21at 08:27; Start 05/16/21 at 09:00; Stop 05/16/21 at 16:58; Status DC Losartan Potassium (Cozaar) 100 mg DAILY PO Last administered on 05/16/21at 08:28; Start 05/16/21 at 09:00; Stop 05/16/21 at 16:58; Status DC Hydroxyzine HCl (Atarax) 25 mg QHS PO Last administered on 05/15/21at 22:29; Start 05/15/21 at 22:30; Stop 05/16/21 at 16:58; Status DC Lamotrigine (LaMICtal) 150 mg QHS PO Last administered on 05/15/21at 22:29; Start 05/15/21 at 22:30; Stop 05/16/21 at 16:58; Status DC Atorvastatin Calcium (Lipitor) 40 mg QHS PO Last administered on 05/15/21at 22:29; Start 05/15/21 at 22:30; Stop 05/16/21 at 16:58; Status DC Active Scripts Active Reported Vitamin C (Ascorbic Acid) 500 Mg Capsule.er 2 Cap PO DAILY 30 Days LAST DOSE GIVEN: Not given in hospital NEXT DOSE DUE: DATE:today TIME:AM Lo-Dose Aspirin EC (Aspirin) 81 Mg Tablet.dr 81 Mg PO DAILY LAST DOSE GIVEN: Not given in hospital NEXT DOSE DUE: DATE:today TIME:AM Hydroxyzine Hcl 25 Mg Tablet 1 Tab PO HS LAST DOSE GIVEN: Not given in hospital NEXT DOSE DUE: DATE:today TIME:AM Lamictal (Lamotrigine) 150 Mg Tablet 1 Tab PO QHS LAST DOSE GIVEN: Not given in hospital NEXT DOSE DUE: DATE:today TIME:bedtime Benicar (Olmesartan Medoxomil) 20 Mg Tablet 1 Tab PO DAILY 30 Days LAST DOSE GIVEN: Not given in hospital NEXT DOSE DUE: DATE:today TIME:AM Zoloft (Sertraline Hcl) 100 Mg Tablet 2 Tab PO DAILY LAST DOSE GIVEN: Not given in hospital NEXT DOSE DUE: DATE:today TIME:AM Atorvastatin Calcium 40 Mg Tablet 1 Tab PO HS LAST DOSE GIVEN: Not given in hospital NEXT DOSE DUE: DATE:today TIME:AM ALLERGIES Allergies: Coded Allergies: risperidone (Unverified Allergy, Severe, 08/13/20) ROS Review of Systems Negative for 04/24 systems reviewed unless noted above in HPI. PHYSICAL EXAM General: Alert, Oriented X3 HEENT: Atraumatic Lungs: Clear to auscultation Heart: Regular rate, Normal S1, Normal S2 Abdomen: Normal bowel sounds, Soft Extremities: No clubbing, No cyanosis Skin: No rashes Neuro: Normal gait, Normal speech Psych/Mental Status: Mental status NL MUSCULOSKELETAL: No joint tenderness VITALS Vital Signs Vital Signs Date Time Temp Pulse Resp B/P (MAP) Pulse Ox O2 Delivery O2 Flow Rate FiO2 05/16/21 15:05 97.8 81 18 121/72 (88) 92 05/16/21 08:57 Room Air LABS LABS Laboratory Tests Test 05/15/21 17:22 05/15/21 21:00 05/15/21 22:10 05/16/21 01:34 White Blood Count 5.9 x10^3/uL (4.0-11.0) Red Blood Count 4.40 x10^6/uL (4.30-5.70) Hemoglobin 13.5 g/dL (13.0-17.5) Hematocrit 39.9 % (39.0-53.0) Mean Corpuscular Volume 91 fL (79-100) Mean Corpuscular Hemoglobin 31 pg (25-35) Mean Corpuscular Hemoglobin Concent 34 g/dL (31-37) Red Cell Distribution Width 13.5 % (11.5-14.5) Platelet Count 170 x10^3/uL (140-400) Neutrophils (%) (Auto) 68 % (31-73) Lymphocytes (%) (Auto) 21 % (24-48) Monocytes (%) (Auto) 8 % (0-9) Eosinophils (%) (Auto) 2 % (0-3) Basophils (%) (Auto) 1 % (0-3) Neutrophils # (Auto) 4.0 x10^3uL (1.8-7.7) Lymphocytes # (Auto) 1.3 x10^3/uL (1.0-4.8) Monocytes # (Auto) 0.5 x10^3/uL (0.0-1.1) Eosinophils # (Auto) 0.1 x10^3/uL (0.0-0.7) Basophils # (Auto) 0.0 x10^3/uL (0.0-0.2) Prothrombin Time 9.9 SEC (9.4-11.4) Prothromb Time International Ratio 1.0 (0.9-1.1) Activated Partial Thromboplast Time 23 SEC (23-33) Sodium Level 138 mmol/L (136-145) Potassium Level 3.8 mmol/L (3.5-5.1) Chloride Level 104 mmol/L (98-107) Carbon Dioxide Level 30 mmol/L (21-32) Anion Gap 4 (6-14) Blood Urea Nitrogen 12 mg/dL (8-26) Creatinine 1.0 mg/dL (0.7-1.3) Estimated GFR (Cockcroft-Gault) 77.6 BUN/Creatinine Ratio 12 (6-20) Glucose Level 110 mg/dL (70-99) Calcium Level 9.3 mg/dL (8.5-10.1) Total Bilirubin 0.3 mg/dL (0.2-1.0) Aspartate Amino Transf (AST/SGOT) 30 U/L (15-37) Alanine Aminotransferase (ALT/SGPT) 54 U/L (16-63) Alkaline Phosphatase 102 U/L (46-116) Troponin I High Sensitivity 5 ng/L (4-75) 5 ng/L (4-75) 6 ng/L (4-75) Total Protein 6.4 g/dL (6.4-8.2) Albumin 3.9 g/dL (3.4-5.0) Albumin/Globulin Ratio 1.6 (1.0-1.7) Coronavirus (COVID-19)(PCR) Not detected (NOT DETECTD) SARS-CoV-2 Antigen (Rapid) Negative (NEGATIVE) Test 05/16/21 05:47 White Blood Count 4.5 x10^3/uL (4.0-11.0) Red Blood Count 4.21 x10^6/uL (4.30-5.70) Hemoglobin 12.8 g/dL (13.0-17.5) Hematocrit 38.7 % (39.0-53.0) Mean Corpuscular Volume 92 fL (79-100) Mean Corpuscular Hemoglobin 31 pg (25-35) Mean Corpuscular Hemoglobin Concent 33 g/dL (31-37) Red Cell Distribution Width 13.6 % (11.5-14.5) Platelet Count 162 x10^3/uL (140-400) Sodium Level 139 mmol/L (136-145) Potassium Level 3.5 mmol/L (3.5-5.1) Chloride Level 105 mmol/L (98-107) Carbon Dioxide Level 26 mmol/L (21-32) Anion Gap 8 (6-14) Blood Urea Nitrogen 12 mg/dL (8-26) Creatinine 1.0 mg/dL (0.7-1.3) Estimated GFR (Cockcroft-Gault) 77.6 Glucose Level 95 mg/dL (70-99) Calcium Level 8.5 mg/dL (8.5-10.1) IMAGES IMAGES CXR unremarkable. CT head negative EKG EKG NSR. ECHOCARDIOGRAM Echocardiogram Echo early in 2020 revealed normal LV function. STRESS TEST Stress Test Stress test in 2019 WNL HEART CATH Heart Cath None prior ASSESSMENT/PLAN Assessment/Plan 1. Non-cardiac chest pain. 2. HTN 3. Prior CVA 4. Dyslipidemia Plan 1. Reviewed event monitor and it has not shown any atrial fib 2. BP/EKG/trops wnl. 3. Ok for DC with outpt f/u and consideration of stress testing. Thanks. ZAID JONES MD May 16, 2021 19:56
== END 2021-05-16 16:58 | disposition home or self-care (01) ==
LOC: ER 16:59 → 1 SOUTH 19:45 → INTOOBSV 19:45
PROVIDERS: ADMIT Internal Medicine; ATTEND Internal Medicine
DX: R07.89 Other chest pain (principal); Z20.822 Contact with and (suspected) exposure to COVID-19; I10 Essential (primary) hypertension; E78.5 Hyperlipidemia, unspecified; E78.00 Pure hypercholesterolemia, unspecified; F31.9 Bipolar disorder, unspecified; F41.9 Anxiety disorder, unspecified; H91.90 Unspecified hearing loss, unspecified ear; F17.200 Nicotine dependence, unspecified, uncomplicated; Z96.652 Presence of left artificial knee joint; Z86.73 Personal history of transient ischemic attack (TIA), and cerebral infarction without residual deficits; Z79.899 Other long term (current) drug therapy; Z98.890 Other specified postprocedural states
CPT/HCPCS: 36415; 70450; 80048; 80053; 84484; 85025; 85027; 85610; 85730; 87426; 93005; 96374; 96375; 96376; 97165; 97530; 99285; G0378; J2060; J2270; U0003; G0379

== ENCOUNTER → 2021-07-15 | Outpatient (CLI) | payer MEDICARE ==
--- NOTE | 2021-07-15 12:18 | CARD ---
MR#: [id number] Date of Study: 07/15/2021 Ordering Physician: TAMARA MAYS, Referring Physician: TAMARA MAYS, Tech: Dayan Contreras [facility] APPROVED REPORT EXAM: Two-dimensional and M-mode echocardiogram with Doppler and color Doppler. Other Information Quality : AverageHR: 77bpm INDICATION CVA/TIA RISK FACTORS Hypertension Hyperlipidemia Smoking 2D DIMENSIONS RVDd3.4 (2.9-3.5cm)Left Atrium(2D)2.8 (1.6-4.0cm) IVSd1.0 (0.7-1.1cm)Aortic Root(2D)3.5 (2.0-3.7cm) LVDd4.9 (3.9-5.9cm)LVOT Diameter2.0 (1.8-2.4cm) PWd1.0 (0.7-1.1cm)LVDs3.9 (2.5-4.0cm) FS (%) 19.7 %SV45.9 ml Aortic Valve AoV Peak Balbir.159.0cm/sAoV VTI28.4cm AO Peak GR.10.1mmHgLVOT Peak Balbir.108.4cm/s LVOT VTI 21.93cmAO Mean GR.5mmHg CAROL (VMAX)2.54je6VPS (VTI)2.43cm2 Mitral Valve MV E Svigfmyg28.5cm/sMV E Peak Gr.2mmHg MV DECEL EDSD727veDT A Dhopisbh97.9cm/s MV E Mean Gr.1mmHgE/A Ratio0.7 Pulmonary Valve PV Peak Fymgumvq41.7cm/sPV Peak Grad.3mmHg Tricuspid Valve TR P. Fpyfvkfx634ho/sRAP HZYAXLRN1ufRf TR Peak Gr.17zdWwXNIE96ntYv Pulmonary Vein S1 Lbouinhx77.9cm/sD2 Kulwfjhi48.1cm/s LEFT VENTRICLE The left ventricle is normal size. There is normal left ventricular wall thickness. The left ventricu lar systolic function is low normal. The ejection fraction is estimated at 50%. Transmitral Doppler f low pattern is Grade I-abnormal relaxation pattern. RIGHT VENTRICLE The right ventricle is mildly dilated. There is normal right ventricular wall thickness. Systolic fun ction is borderline reduced. ATRIA The left atrium size is normal. The right atrium size is normal. The interatrial septum is intact wit h no evidence for an atrial septal defect or patent foramen ovale as noted on 2-D or Doppler imaging. AORTIC VALVE The aortic valve is normal in structure and function. Doppler and Color Flow revealed trace aortic re gurgitation. There is no significant aortic valvular stenosis. Calculated aortic valve area is 2.9 cm 2 with maximum pressure gradient of 6 mmHg and mean pressure gradient of 3 mmHg. MITRAL VALVE The mitral valve is normal in structure and function. There is no evidence of mitral valve prolapse. There is no mitral valve stenosis. Doppler and Color-flow revealed trace mitral regurgitation. TRICUSPID VALVE The tricuspid valve is normal in structure and function. Doppler and Color Flow revealed trace tricus pid regurgitation with an estimated PAP of 25 mmHg. There is no tricuspid valve stenosis. PULMONIC VALVE The pulmonic valve is not well visualized. Doppler and Color Flow revealed trace pulmonic valvular re gurgitation. GREAT VESSELS The aortic root is normal in size. The IVC is normal in size and collapses >50% with inspiration. PERICARDIAL EFFUSION There is no evidence of significant pericardial effusion. Critical Notification Critical Value: No <Conclusion> The left ventricular systolic function is low normal. The ejection fraction is estimated at 50%. Transmitral Doppler flow pattern is Grade I-abnormal relaxation pattern. Trace mitral regurgitation. Trace tricuspid regurgitation with an estimated PAP of 25 mmHg. There is no evidence of significant pericardial effusion. Signed by : Tamara Mays, Electronically Approved : 07/15/2021 12:17:36
== END ==
LOC: ECHO 07:34
PROVIDERS: ATTEND Internal Medicine Cardiovascular Disease
DX: I63.9 Cerebral infarction, unspecified (principal); I10 Essential (primary) hypertension
CPT/HCPCS: 93306

== ENCOUNTER 2021-08-30 08:19 | Emergency (ER) | payer MEDICARE ==
[~2021-08-30] VITALS: Ht 165.1 cm; Wt 81.1 kg
--- NOTE | 2021-08-30 08:42 | PHYS DOC ---
Past History Past Medical History: Bipolar, High Cholesterol, Hypertension Past Surgical History: Other Additional Past Surgical Histo: loop recorder; anal fissure repair; hemorr hoidectomy; TOTAL LEFT KNEE Smoking: Cigarettes Alcohol Use: None Drug Use: None Adult General Chief Complaint Chief Complaint: SUICIDAL IDEATION HPI HPI Patient is a 56-year-old male presenting with suicidal ideation. This is an acute on chronic issue. He has longstanding history of bipolar depression with numerous inpatient psychiatric hospitalizations and prior suicidal attempts mainly by overdose. 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 He has had increased frequency of suicidal thoughts. Today, he states " I cannot take it anymore" and came in for help as he did not want to act on any potential plans. Admits he has been off of his home medications since April. Denies tobacco alcohol or other illicit drug abuse Review of Systems Review of Systems Fourteen body systems of review of systems have been reviewed. See HPI for pertinent positives and negative responses, other feliz all other systems are negative, non-pertinent or non-contributory Allergies Allergies Allergies Coded Allergies Type Severity Reaction Last Updated Verified risperidone Allergy Severe 08/13/20 No Physical Exam Physical Exam Constitutional: Well developed, well nourished, no acute distress, non-toxic appearance. HENT: Normocephalic, atraumatic, bilateral external ears normal, oropharynx moist, no oral exudates, nose normal. Eyes: PERRLA, EOMI, conjunctiva normal, no discharge. Neck: Normal range of motion, no tenderness, supple, no stridor. Cardiovascular: Heart rate regular, sinus rhythm, no murmurs rubs or gallops, subcutaneous anterior loop recorder device present Lungs & Thorax: Bilateral breath sounds clear to auscultation Abdomen: Bowel sounds normal, soft, no tenderness, no masses, no pulsatile masses. Nonsurgical abdomen, no peritoneal signs Skin: Warm, dry, no erythema, no rash. Back: No tenderness, no CVA tenderness. Extremities: No tenderness, no cyanosis, no clubbing, ROM intact, no edema. Neurologic: Alert and oriented X 3, grossly normal motor & sensory function, no focal deficits noted. Psychologic: Tearful affect, depressed mood Current Patient Data Vital Signs Vital Signs Date Time Temp Pulse Resp B/P (MAP) Pulse Ox O2 Delivery O2 Flow Rate FiO2 08/30/21 08:53 97.0 68 16 132/96 (108) 98 Room Air Vital Signs Date Time Temp Pulse Resp B/P (MAP) Pulse Ox O2 Delivery O2 Flow Rate FiO2 08/30/21 08:53 97.0 68 16 132/96 (108) 98 Room Air Lab Results Laboratory Tests Test 08/30/21 08:26 08/30/21 08:40 Urine Collection Type Unknown Urine Color Straw Urine Clarity Clear Urine pH 6.0 Urine Specific [employer] 1.010 Urine Protein Neg Urine Glucose (UA) Neg mg/dL Urine Ketones (Stick) Neg mg/dL Urine Blood Trace Urine Nitrite Neg Urine Bilirubin Neg Urine Urobilinogen Dipstick 0.2 mg/dL Urine Leukocyte Esterase Neg Urine RBC Occ /HPF Urine WBC 0 /HPF Urine Squamous Epithelial Cells Occ /LPF Urine Bacteria Few /HPF Urine Opiates Screen Neg Urine Methadone Screen Neg Urine Barbiturates Neg Urine Phencyclidine Screen Neg Urine Amphetamine/Methamphetamine Neg Urine Benzodiazepines Screen Neg Urine Cocaine Screen Neg Urine Cannabinoids Screen Neg Urine Ethyl Alcohol Neg White Blood Count 5.5 x10^3/uL Red Blood Count 4.92 x10^6/uL Hemoglobin 14.9 g/dL Hematocrit 44.0 % Mean Corpuscular Volume 90 fL Mean Corpuscular Hemoglobin 30 pg Mean Corpuscular Hemoglobin Concent 34 g/dL Red Cell Distribution Width 13.7 % Platelet Count 200 x10^3/uL Neutrophils (%) (Auto) 72 % Lymphocytes (%) (Auto) 20 % Monocytes (%) (Auto) 7 % Eosinophils (%) (Auto) 1 % Basophils (%) (Auto) 0 % Neutrophils # (Auto) 3.9 x10^3uL Lymphocytes # (Auto) 1.1 x10^3/uL Monocytes # (Auto) 0.4 x10^3/uL Eosinophils # (Auto) 0.0 x10^3/uL Basophils # (Auto) 0.0 x10^3/uL Sodium Level 136 mmol/L Potassium Level 3.7 mmol/L Chloride Level 102 mmol/L Carbon Dioxide Level 23 mmol/L Anion Gap 11 Blood Urea Nitrogen 13 mg/dL Creatinine 1.1 mg/dL Estimated GFR (Cockcroft-Gault) 69.2 BUN/Creatinine Ratio 12 Glucose Level 94 mg/dL Calcium Level 8.9 mg/dL Total Bilirubin 0.9 mg/dL Aspartate Amino Transf (AST/SGOT) 23 U/L Alanine Aminotransferase (ALT/SGPT) 30 U/L Alkaline Phosphatase 80 U/L Troponin I High Sensitivity 6 ng/L Total Protein 7.4 g/dL Albumin 4.2 g/dL Albumin/Globulin Ratio 1.3 Salicylates Level 2.7 mg/dL Salicylate Last Dose Date 07/22/10 Salicylate Last Dose Time 1111 Acetaminophen Level < 2.0 mcg/mL Acetaminophen Last Dose Date 07/22/10 Acetaminophen Last Dose Time 1111 Ethyl Alcohol Level < 10 mg/dL SARS-CoV-2 Antigen (Rapid) Negative EKG EKG EKG ordered and interpreted by myself at 0842 hrs. is sinus rhythm at 85 bpm, unremarkable intervals, no axis deviation, no obvious ischemic findings, no STEMI Radiology/Procedures Radiology/Procedures [] Heart Score C/O Chest Pain: No Risk Factors: Risk Factors: DM, Current or recent (<one month) smoker, HTN, HLP, family history of CAD, obesity. Risk Scores: Risk Factors: DM, Current or recent (<one month) smoker, HTN, HLP, family history of CAD, obesity. Course & Med Decision Making Course & Med Decision Making ABCs unremarkable HPI physical exam comprehensive ER work-up nonconcerning for any emergent or surgical issues. Medically cleared from my standpoint Patient evaluated by qualified mental health professional who reviewed any appropriate supporting documentation and previous available medical records and feels patient meets criteria for admission to mental health facility. I agree with this assessment Nonetheless, after several hours in the department patient had spoke with numerous close members and his support [place] and was reevaluated by PET team and joint decision was made to discharge home with appropriate behavioral health follow-up in outpatient setting I again agreed with this assessment for safety plan home as patient demonstrates good forward thinking. Patient understands safety plan which was reviewed with him at length, strict return precautions discussed with good understanding verbalized prior to ER departure Dragon Disclaimer Dragon Disclaimer This electronic medical record was generated, in whole or in part, using a voice recognition dictation system. Departure Departure: Impression: Primary Impression: Depression Disposition: HOME / SELF CARE / HOMELESS Condition: STABLE Referrals: ESTEPHANIA ESPARZA (PCP) Additional Instructions: You were seen in the ED for evaluation of depression and other chronic mental health issues. These are serious serious medical conditions with unfortunate effects on daily living. Initial attempts were made to transport you to outlying facility for inpatient psychiatric transfer but after several discussions with your support system and Pat maintenance team member you elected to go home. As such, you should utilize the Behavior Health resources for further management of your s ymptoms. Please adhere to safety plan as discussed and if you have recurrence of thoughts involving harming self or others please do not hesitate to come back for repeat evaluation. It was a pleasure to take care of you and I wish you the best going forward RICARDO DIA DO Aug 30, 2021 08:42
[2021-08-30 08:53] VITALS: BP 132/96
--- NOTE | 2021-08-30 09:09 | EKG ---
[address] [address] Test Date: 2021-08-30 Test Time: 08:41:49 Pat Name: ALESIA DOBBS Department: Room: Gender: M [employer] Professional: LEXI : 1965 Requested By: RICARDO DIA Order Number: [id number] Reading MD: Christian Mays Measurements Intervals [place] Rate: 85 P: 67 GA: 136 QRS: 62 QRSD: 96 T: 48 QT: 354 QTc: 421 Interpretive Statements SINUS RHYTHM Electronically Signed On 08-31-2021 13:54:17 [employer] OFFICER by Christian Mays
[2021-08-30 09:12] LABS: BASO % 0 % (0-3); EOS % 1 % (0-3); HEMOGLOBIN 14.9 g/dL (13.0-17.5); LYMPH # 1.1 x10^3/uL (1.0-4.8); LYMPH % 20 % (24-48); MEAN CORPUSCULAR HEMOGLOBIN 30 pg (25-35); MEAN CORPUSCULAR HGB CONC 34 g/dL (31-37); MEAN CORPUSCULAR VOLUME 90 fL (79-100); MONO # 0.4 x10^3/uL (0.0-1.1); MONO % 7 % (0-9); NEUT # 3.9 x10^3uL (1.8-7.7); NEUT % 72 % (31-73); PLATELET COUNT 200 x10^3/uL (140-400); RED BLOOD COUNT 4.92 x10^6/uL (4.30-5.70); RED CELL DISTRIBUTION WIDTH 13.7 % (11.5-14.5); WHITE BLOOD COUNT 5.5 x10^3/uL (4.0-11.0)
[2021-08-30 10:03] LABS: CALCIUM 8.9 mg/dL (8.5-10.1); CREATININE 1.1 mg/dL (0.7-1.3); GFR 69.2; POTASSIUM 3.7 mmol/L (3.5-5.1)
[2021-08-30 10:05] LABS: BACTERIA,URINE FEW /HPF (0-FEW); BARBITURATES NEG (NEG); BENZODIAZEPINES NEG (NEG); BILIRUBIN,URINE NEG (NEG); CANNABINOIDS NEG (NEG); CLARITY,URINE CLEAR; COCAINE NEG (NEG); COLOR,URINE STRAW; GLUCOSE,URINE NEG (NEG); METHADONE NEG (NEG); NITRITE,URINE NEG (NEG); OPIATES NEG (NEG); PHENCYCLIDINE NEG (NEG); RBC,URINE OCC /HPF (0-2); SQUAMOUS EPITHELIAL CELL,UR OCC /LPF; UROBILINOGEN,URINE 0.2 mg/dL (0.2 mg/dL); WBC,URINE 0 /HPF (0-4)
[2021-08-30 10:12] LABS: ACETAMIN < 2.0 mcg/mL (10-30); ETHANOL < 10 mg/dL (0-10); SALIC 2.7 mg/dL (2.8-20.0)
[2021-08-30 10:14] LABS: AMPHETAMINE/METHAMPHETAMINE NEG (NEG)
[2021-08-30 10:17] LABS: ALBUMIN 4.2 g/dL (3.4-5.0); ALBUMIN/GLOBULIN RATIO 1.3 (1.0-1.7); TOTAL BILIRUBIN 0.9 mg/dL (0.2-1.0); TOTAL PROTEIN 7.4 g/dL (6.4-8.2)
== END 2021-08-30 16:29 | disposition home or self-care (01) ==
LOC: ER 08:19
DX: F32.9 Major depressive disorder, single episode, unspecified (principal); E78.00 Pure hypercholesterolemia, unspecified; I10 Essential (primary) hypertension; F17.210 Nicotine dependence, cigarettes, uncomplicated; Z20.822 Contact with and (suspected) exposure to COVID-19; Z88.8 Allergy status to other drugs, medicaments and biological substances
CPT/HCPCS: 80053; 80307; 80329; 81001; 84484; 85025; 87426; 93005; 99284; G0480; U0003

== ENCOUNTER 2021-11-20 15:27 | Emergency (ER) | payer MEDICARE ==
[~2021-11-20] VITALS: Ht 165.1 cm; Wt 81.1 kg
[2021-11-20 15:32] VITALS: BP 132/96
[2021-11-20] MEDS ORDERED: IV NORMAL SALINE 1,000ML 1,000 ML IV SCH (15:45)
[2021-11-20] MEDS ORDERED: MORPHINE SULFATE 2 MG/ML DISP.SYRIN. IV ONE ×2 (15:45→16:45)
[2021-11-20] MEDS ORDERED: ASPIRIN CHEWABLE 81 MG TABLET. PO ONE (15:45)
--- NOTE | 2021-11-20 15:51 | PHYS DOC ---
Past History Past Medical History: Bipolar, High Cholesterol, Hypertension (LIZ RYAN APRN) Past Surgical History: Other Additional Past Surgical Histo: loop recorder; anal fissure repair; hemorrhoidectomy; TOTAL LEFT KNEE (LIZ RYAN APRN) Smoking: Cigarettes Alcohol Use: None Drug Use: None (LIZ RYAN APRN) General Adult EDM: Chief Complaint: CHEST PAIN HPI: HPI: Patient is a 56-year-old male who presents to the emergency department today for chest pain. Patient is reporting left-sided chest pain that radiates to his left arm that started yesterday morning. He reports that it is a pressure sensation and he occasionally has pain in his right shoulder. He reports that the pain resolved last night and restarted this morning. He rates 8 out of 10. No treatment prior to arrival. Pain is worse with movement and reproduced with palpation. Patient does have a history of being seen for chest pain. He has a history of CVA, A. fib, anxiety/bipolar and hypertension. Patient reports that due to insurance issues he has not been on any medications for his A. fib and has not been taking his blood thinner. Patient is a current smoker. Patient denies shortness of breath, nausea, vomiting, worsening of his cough, fevers. (LIZ RYAN APRN) Review of Systems: Review of Systems: Constitutional: See HPI Respiratory: See HPI Cardiovascular: See HPI GI: See HPI Musculoskeletal: Reports chest wall tenderness Psychiatric: See HPI (LIZ RYAN APRN) Current Medications: Current Meds: Current Medications Medications (Trade) Dose Ordered Sig/Antonio Start Time Stop Time Status Last Admin Dose Admin Aspirin (Aspirin Chewable) 324 mg 1X ONCE 11/20/21 15:45 11/20/21 15:46 UNV Sodium Chloride 1,000 ml @ 1,000 mls/hr Q1H 11/20/21 15:45 11/20/21 16:44 UNV (LIZ RYAN APRN) Allergies: Allergies: Allergies Coded Allergies Type Severity Reaction Last Updated Verified risperidone Allergy Severe 08/13/20 No (LIZ RYAN APRN) Physical Exam: PE: Constitutional: Well developed, well nourished, no acute distress, non-toxic appearance. [] HENT: Normocephalic, atraumatic, bilateral external ears normal, oropharynx moist, no oral exudates, nose normal. [] Eyes: PERRL, EOMI, conjunctiva normal, no discharge. [] Neck: Normal range of motion, no tenderness, supple, no stridor. [] Cardiovascular:Heart rate regular rhythm, no murmur, generalized chest wall tenderness with palpation [] Lungs & Thorax: Bilateral breath sounds clear to auscultation [] Abdomen: Bowel sounds normal, soft, no tenderness, no masses, no pulsatile masses. [] Skin: Warm, dry, no erythema, no rash. [] Back: No tenderness, normal range of motion Extremities: No tenderness, no cyanosis, no clubbing, ROM intact, no edema. [] Neurologic: Alert and oriented X 3, normal motor function, normal sensory functi on, no focal deficits noted. [] Psychologic: Affect normal, judgement normal, mood normal. [] (LIZ RYAN APRN) Current Patient Data: Labs: Laboratory Tests Test 11/20/21 15:50 White Blood Count 7.0 x10^3/uL Red Blood Count 4.94 x10^6/uL Hemoglobin 14.9 g/dL Hematocrit 43.1 % Mean Corpuscular Volume 87 fL Mean Corpuscular Hemoglobin 30 pg Mean Corpuscular Hemoglobin Concent 35 g/dL Red Cell Distribution Width 13.2 % Platelet Count 219 x10^3/uL Neutrophils (%) (Auto) 77 % Lymphocytes (%) (Auto) 14 % Monocytes (%) (Auto) 8 % Eosinophils (%) (Auto) 1 % Basophils (%) (Auto) 1 % Neutrophils # (Auto) 5.4 x10^3uL Lymphocytes # (Auto) 0.9 x10^3/uL Monocytes # (Auto) 0.6 x10^3/uL Eosinophils # (Auto) 0.0 x10^3/uL Basophils # (Auto) 0.0 x10^3/uL D-Dimer (Annabelle) 0.39 mg/L Sodium Level 135 mmol/L Potassium Level 3.9 mmol/L Chloride Level 97 mmol/L Carbon Dioxide Level 22 mmol/L Anion Gap 16 Blood Urea Nitrogen 22 mg/dL Creatinine 1.7 mg/dL Estimated GFR (Cockcroft-Gault) 41.9 BUN/Creatinine Ratio 13 Glucose Level 82 mg/dL Calcium Level 9.8 mg/dL Total Bilirubin 1.3 mg/dL Aspartate Amino Transf (AST/SGOT) 39 U/L Alanine Aminotransferase (ALT/SGPT) 32 U/L Alkaline Phosphatase 82 U/L Troponin I High Sensitivity 7 ng/L Total Protein 7.3 g/dL Albumin 4.5 g/dL Albumin/Globulin Ratio 1.6 Current Medications Medications (Trade) Dose Ordered Sig/Antonio Route PRN Reason Start Time Stop Time Status Last Admin Dose Admin Aspirin (Aspirin Chewable) 324 mg 1X ONCE PO 11/20/21 15:45 11/20/21 15:46 DC 11/20/21 16:05 Sodium Chloride 1,000 ml @ 1,000 mls/hr Q1H IV 11/20/21 15:45 11/20/21 16:44 11/20/21 16:05 Morphine Sulfate (Morphine 2mg Syringe) 2 mg 1X ONCE IV 11/20/21 15:45 11/20/21 15:46 DC 11/20/21 16:05 Ondansetron HCl (Zofran) 4 mg 1X ONCE IVP 11/20/21 16:15 11/20/21 16:16 DC 11/20/21 16:15 Vital Signs: Vital Signs Date Time Temp Pulse Resp B/P (MAP) Pulse Ox O2 Delivery O2 Flow Rate FiO2 11/20/21 15:32 18 132/96 (108) Room Air (LIZ RYAN APRN) EKG: EKG: [] EKG performed by ER staff at 1537 shows sinus tachycardia, no STEMI read by Vanesa Yu at 1542 (LIZ RYAN APRN) Radiology/Procedures: Radiology/Procedures: []PROCEDURE: PORTABLE CHEST 1V EXAM: Chest, single view. HISTORY: Chest pain. COMPARISON: 01/30/2021 FINDINGS: A frontal view of the chest is obtained. There is no infiltrate, pleural effusion or pneumothorax. There is a cardiac event monitor overlying the left mid thorax. IMPRESSION: No acute pulmonary finding. Electronically signed by: Maura Srinivasan MD (11/20/2021 3:57 PM) [id number] DICTATED AND SIGNED BY: MAURA SRINIVASAN MD DATE: 11/20/21 0669 CC: ESTEPHANIA ESPARZA; LIZ RYAN APRN ~ (LIZ RYAN APRN) Heart Score: C/O Chest Pain: Yes HEART Score for Chest Pain: HEART Score for Chest Pain Response (Comments) Value History Slighlty/Non-Suspicious 0 ECG Nonspecific Repolarizatio 1 Age >45 - < 65 1 Risk Factors 1 or 2 Risk Factors 1 Troponin < Normal Limit 0 Total 3 Risk Factors: Risk Factors: DM, Current or recent (<one month) smoker, HTN, HLP, family history of CAD, obesity. Risk Scores: Score 0 - 3: 2.5% MACE over next 6 weeks - Discharge Home Score 4 - 6: 20.3% MACE over next 6 weeks - Admit for Clinical Observation Score 7 - 10: 72.7% MACE over next 6 weeks - Early Invasive Strategies (LIZ RYAN APRN) Course & Med Decision Making: Course & Med Decision Making Pertinent Labs and Imaging studies reviewed. (See chart for details) [] Patient presents to the emergency department for chest pain that started yesterday morning. He has risk factors are hypertension and he is a current smoker. Work-up in the ER consisted of blood work including troponin and D- dimer as patient does have a history of A. fib and has not been taking his blood thinner and he is tachycardic. EKG and chest x-ray also performed. Patient treated with IV fluids, aspirin and pain medication. Patient's blood work is unremarkable pathology has creatinine 1.79 sodium 135, patient's likely driving treated with IV fluids. Negative D-dimer, troponin was 7. Patient's chest x-ray did not show any acute findings. Patient's heart score is 3. Patient's chest pain started greater than 24 hours ago therefore, no need for serial troponins. Chest pain likely musculoskeletal in nature as it is worse with palpation and movement. Patient reports improvement in his pain following treatment in the ER. Patient reports that his cardiology is Dr. Mays. He is advised to follow-up with him outpatient. Patient's vital signs are stable. I discussed with patient all findings and diagnostic testing as well as the need to follow-up with PCP for further evaluation and treatment or return to the ER if any new or worsening symptoms. Strict return precautions were also discussed at length. Patient voiced understanding and agreement with the plan. Patient is hemodynamically stable at the time of disposition. (LIZ RYAN APRN) Dragon Disclaimer: Dragon Disclaimer: This electronic medical record was generated, in whole or in part, using a voice recognition dictation system. (LIZ RYAN APRN) Departure Departure: Impression: Primary Impression: Atypical chest pain Disposition: HOME / SELF CARE / HOMELESS Condition: GOOD Referrals: ESTEPHANIA ESPARZA (PCP) Patient Instructions: Chest Pain (Nonspecific) Additional Instructions: You are seen in the emergency department today for chest pain. As we discussed, does not appear that you that you are experiencing acute coronary syndrome at this time. Take Tylenol and ibuprofen for your pain. As we discussed, please follow-up with the community resources that was provided for you that you can afford your medications. Follow-up with Dr. Mays as previously scheduled. Return to the emergency department if you develop chest pain, shortness of breath, high fevers refractory to treatment, tractable nausea or vomiting. Attending Signature I have participated in the care of this patient and I have reviewed and agree with all pertinent clinical information above including history, exam, and recommendations. (KARLIE YU DO) LIZ RYAN APRN November 20, 2021 15:51 KARLIE YU DO November 20, 2021 17:27
--- NOTE | 2021-11-20 16:00 | RAD ---
EXAM: Chest, single view. HISTORY: Chest pain. COMPARISON: 01/30/2021 FINDINGS: A frontal view of the chest is obtained. There is no infiltrate, pleural effusion or pneumo thorax. There is a cardiac event monitor overlying the left mid thorax. IMPRESSION: No acute pulmonary finding. Electronically signed by: Maura Rico MD (11/20/2021 3:57 PM) [id number]
[2021-11-20 16:06] LABS: BASO % 1 % (0-3); EOS % 1 % (0-3); HEMATOCRIT 43.1 % (39.0-53.0); HEMOGLOBIN 14.9 g/dL (13.0-17.5); LYMPH # 0.9 x10^3/uL (1.0-4.8); LYMPH % 14 % (24-48); MEAN CORPUSCULAR HEMOGLOBIN 30 pg (25-35); MEAN CORPUSCULAR HGB CONC 35 g/dL (31-37); MEAN CORPUSCULAR VOLUME 87 fL (79-100); MONO # 0.6 x10^3/uL (0.0-1.1); MONO % 8 % (0-9); NEUT # 5.4 x10^3uL (1.8-7.7); NEUT % 77 % (31-73); PLATELET COUNT 219 x10^3/uL (140-400); RED BLOOD COUNT 4.94 x10^6/uL (4.30-5.70); RED CELL DISTRIBUTION WIDTH 13.2 % (11.5-14.5)
[2021-11-20 16:13] LABS: CALCIUM 9.8 mg/dL (8.5-10.1); CREATININE 1.7 mg/dL (0.7-1.3); GFR 41.9; POTASSIUM 3.9 mmol/L (3.5-5.1)
[2021-11-20] MEDS ORDERED: ONDANSETRON PF 4 MG/2 ML VIAL. IVP ONE (16:15)
[2021-11-20 16:19] LABS: ALBUMIN 4.5 g/dL (3.4-5.0); ALBUMIN/GLOBULIN RATIO 1.6 (1.0-1.7); TOTAL BILIRUBIN 1.3 mg/dL (0.2-1.0); TOTAL PROTEIN 7.3 g/dL (6.4-8.2)
== END 2021-11-20 17:20 | disposition home or self-care (01) ==
LOC: ER 15:27
DX: R07.89 Other chest pain (principal); M25.511 Pain in right shoulder; F31.9 Bipolar disorder, unspecified; E78.00 Pure hypercholesterolemia, unspecified; I10 Essential (primary) hypertension; F17.210 Nicotine dependence, cigarettes, uncomplicated; I48.91 Unspecified atrial fibrillation; Z86.73 Personal history of transient ischemic attack (TIA), and cerebral infarction without residual deficits
CPT/HCPCS: 36415; 71045; 80053; 84484; 85025; 85379; 93005; 96361; 96374; 96375; 96376; 99285; J2270; J2405; J7030